=== PATIENT | male | born 1945 | race African-American/Black ===

== ENCOUNTER → 2016-11-12 | Outpatient (CLI) | payer MEDICARE ==
--- NOTE | 2016-11-12 16:00 | MR ---
EXAMINATION TYPE: MR shoulder LT wo con DATE OF EXAM: 11/12/2016 3:51 PM COMPARISON: NONE HISTORY: Left Shoulder Pain /Neck Pain TECHNIQUE: Multiplanar multispin echo imaging of the left shoulder was performed. FINDINGS: Rotator cuff : There is heterogeneity and thickening of the supraspinatus tendon compatible with corrections sergeant miguelina tendinopathy. Several intrasubstance partial tears are noted. At its humeral insertion there is a complete partial tear noted measuring 5.3 mm in thickness. Remaining rotator cuff tendons are intact . Bursa: No bursal effusion or thickening is seen. Musculature: There is no muscular tear, contusion, or atrophy. Acromioclavicular joint : Subacromial spurring resulting in moderate impingement. Osseous structures : There are no fractures or regions of abnormal bone marrow signal intensity. Mild cystic degenerative change at humeral tuberosity. Long biceps tendon : The biceps tendon is normally situated within the bicipital groove. No complete or partial biceps tendon tear is present. Glenohumeral Joint fluid : There is no glenohumeral joint effusion. Cartilage and Bone : No focal hyaline cartilage defects are noted. No Hill-Sachs, reverse Hill-Sachs, or bony Bankart lesions are seen. Labrum : There are no SLAP or soft tissue Bankart lesions. No paralabral cysts are seen. OTHER FINDINGS : none IMPRESSION: 1. Complete thickness partial tear of the supraspinatus tendon at its humeral insertion. Additional a reas of intrasubstance partial tear superimposed upon tendinopathy secondary to impingement.
--- NOTE | 2016-11-12 16:55 | MR ---
EXAMINATION TYPE: MR cervical spine wo con DATE OF EXAM: 11/12/2016 4:07 PM COMPARISON: NONE HISTORY: Left Shoulder Pain /Neck Pain TECHNIQUE: Multiplanar, multisequence images of the cervical spine were acquired. C2-C3: No evidence for degenerative disc disease. No disc bulge/herniation or protrusion. No Canal stenosis. Foramina are patent bilaterally. C3-C4: Moderate disc desiccation. Posterocentral subligamentous disc herniation effaces the ventral t hecal sac. There is constriction of the thecal sac with mild central stenosis. Mild ventral CORD cont act with early compressive myelopathy difficult to exclude. Mild left foraminal encroachment. C4-C5: Moderate disc desiccation. Broad-based Posterocentral subligamentous disc herniation effaces t he ventral thecal sac. There is constriction of the thecal sac with mild central stenosis. Mild ventr al CORD contact with early compressive myelopathy difficult to exclude. Bilateral foraminal encroachm ent. C5-C6: Moderate disc desiccation. Posterocentral disc herniation mild in degree. Mild effacement vent ral thecal sac with minimal ventral CORD contact. No evidence for central stenosis or compressive mye lopathy. Bilateral neural foramina are patent. C6-C7: Ggcg-cz-nsrjizee disc desiccation. Mild posterior disc bulge without herniation or protrusion. No central stenosis. Foramina are patent bilaterally. C7-T1: No evidence for degenerative disc disease. No disc bulge/herniation or protrusion. No Canal stenosis. Foramina are patent bilaterally. Cervical segments are intact. There is normal alignment. Craniovertebral junction relationships are within normal limits. IMPRESSION: 1. Multilevel degenerative disc disease with multilevel disc herniations and central stenosis with ea rly compressive myelopathy difficult to exclude at C3-4 and C4-5. See above.
== END | disposition home or self-care (01) ==
LOC: RADMRIMAIN 14:55
PROVIDERS: ATTEND Internal Medicine
DX: M75.122 Complete rotator cuff tear or rupture of left shoulder, not specified as traumatic (principal); M48.02 Spinal stenosis, cervical region; M50.21 Other cervical disc displacement, high cervical region; M50.31 Other cervical disc degeneration, high cervical region
CPT/HCPCS: 72141

== ENCOUNTER 2017-01-28 18:18 | Emergency (ER) | payer MEDICARE ==
[2017-01-28 18:35] VITALS: PULSE 59; RESP 18; TEMP 98.2
--- NOTE | 2017-01-28 19:39 | ED ---
Recheck HPI - General Chief Complaint: Recheck/Abnormal Lab/Rx Stated Complaint: high sugars Time Seen by Provider: 01/28/17 19:30 Source: patient, RN notes reviewed Mode of arrival: ambulatory Limitations: no limitations - History of Present Illness Initial Comments: 71-year-old male presents emergency department for recheck blood sugar. Patient states it was 170 at home. Patient states this is high for him. Patient states he gave himself insulin. Recheck here as 114. Patient states he has no complaints at this time. Patient states he felt that he had A polyuria at home. Patient denies any chest pain, shortness breath, headache, dizziness, nausea vomiting diarrhea constipation. Patient states he ate his normal diet. - Related Data Home Medications Medication Instructions Recorded Confirmed Aspirin 81 mg PO DAILY 05/15/14 09/26/15 Atorvastatin Calcium [Lipitor] 40 mg PO HS 05/15/14 09/26/15 Clopidogrel [Plavix] 75 mg PO DAILY 05/15/14 09/26/15 INSULIN LISPRO (humaLOG) [humaLOG 18 unit SQ TID 05/15/14 09/26/15 (formulary)] Insulin Detemir [Levemir] 50 unit SQ HS 05/15/14 09/26/15 Lisinopril-Hctz 20-12.5 mg 1 tab PO DAILY 05/15/14 09/26/15 [Zestoretic 20-12.5] Metoprolol Succinate [Toprol XL] 50 mg PO DAILY 05/15/14 09/26/15 NIFEdipine [NIFEdipine ER] 60 mg PO DAILY 05/15/14 09/26/15 Sildenafil Citrate [Viagra] 25 mg PO DIRECTED PRN 05/15/14 09/26/15 metFORMIN HCL [Glucophage] 1 tab PO BID 05/15/14 09/26/15 Donepezil [Aricept] 10 mg PO HS 09/26/15 09/26/15 Multivitamin [Men's Multi-Vitamin] 1 each PO DAILY 09/26/15 09/26/15 cloNIDine HCL [Catapres] 0.1 mg PO BID 09/26/15 09/26/15 sitaGLIPtin [Januvia] 100 mg PO DAILY 09/26/15 09/26/15 Previous Rx's Medication Instructions Recorded Spironolactone [Aldactone] 25 mg PO DAILY #90 tab 05/18/14 Allergies Allergy/AdvReac Type Severity Reaction Status Date / Time No Known Allergies Allergy Verified 01/28/17 18:35 Review of Systems ROS Statement: Those systems with pertinent positive or pertinent negative responses have been documented in the HPI. ROS Other: All systems not noted in ROS Statement are negative. Past Medical History Past Medical History: Chest Pain / Angina, Diabetes Mellitus, Hyperlipidemia, Hypertension, Myocardial Infarction ([place]), Prostate Disorder Additional Past Medical History / Comment(s): PROSTATE CA, BELLS PALSY,GLAUCOMA , ARHTRITIS,SHORT TERM MEMORY LOSS Last Myocardial Infarction Date:: UNK History of Any Multi-Drug Resistant Organisms: None Reported Past Surgical History: Joint Replacement, Prostate Surgery Additional Past Surgical History / Comment(s): LT hip replaced, Past Anesthesia/Blood Transfusion Reactions: No Reported Reaction Past Psychological History: No Psychological Hx Reported Smoking Status: Current every day smoker Past Alcohol Use History: Occasional Past Drug Use History: None Reported General Exam Limitations: no limitations General appearance: alert, in no apparent distress Head exam: Present: atraumatic, normocephalic, normal inspection Respiratory exam: Present: normal lung sounds bilaterally. Absent: respiratory distress, wheezes, rales, rhonchi, stridor Cardiovascular Exam: Present: regular rate, normal rhythm, normal heart sounds. Absent: systolic murmur, diastolic murmur, rubs, gallop, clicks Neurological exam: Present: alert, oriented X3 Course Vital Signs 01/28/17 18:33 Temperature 98.2 F Pulse Rate 59 L Respiratory 18 Rate Blood Pressure 203/88 O2 Sat by Pulse 99 Oximetry Medical Decision Making - Medical Decision Making 71-year-old male presents emergency department for high blood sugar. Patient's blood sugar was 178 home. Recheck here after on a half of insulin was 114. Patient will be discharged at this time. Disposition Clinical Impression: Diabetes, Increased blood glucose Disposition: HOME SELF-CARE Condition: Stable Instructions: How to Check Your Blood Sugar (ED) Additional Instructions: Please return to the Emergency Department if symptoms worsen or any other concerns. Referrals: Carlos Khan MD [Primary Care Provider] - 1-2 days Time of Disposition: 19:39
[2017-01-28 19:47] VITALS: BP 190/90
[2017-01-29 15:56] LABS: Glucose,Whole Blood 114 mg/dL (75-99)
== END 2017-01-28 19:47 | disposition home or self-care (01) ==
LOC: EC 18:18
DX: E11.65 Type 2 diabetes mellitus with hyperglycemia (principal); R35.8 Other polyuria; E78.5 Hyperlipidemia, unspecified; I10 Essential (primary) hypertension; I25.2 Old myocardial infarction; N42.9 Disorder of prostate, unspecified; F17.200 Nicotine dependence, unspecified, uncomplicated; Z79.4 Long term (current) use of insulin; Z79.82 Long term (current) use of aspirin; Z79.899 Other long term (current) drug therapy
CPT/HCPCS: 36415; 99283

== ENCOUNTER 2021-07-17 22:19 | Emergency (ER) | payer MEDICARE ==
[2021-07-17 22:39] VITALS: RESP 18
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
[2021-07-17 22:58] VITALS: BP 146/84; PULSE 78; TEMP 97.8
== END 2021-07-17 22:56 | disposition home or self-care (01) ==
LOC: EC 22:19
DX: R07.9 Chest pain, unspecified (principal); I10 Essential (primary) hypertension; E11.9 Type 2 diabetes mellitus without complications; E78.5 Hyperlipidemia, unspecified; I25.2 Old myocardial infarction; M19.90 Unspecified osteoarthritis, unspecified site; Z79.02 Long term (current) use of antithrombotics/antiplatelets; Z79.4 Long term (current) use of insulin; Z79.82 Long term (current) use of aspirin; Z86.16 Personal history of COVID-19; Z87.891 Personal history of nicotine dependence; Z79.899 Other long term (current) drug therapy
CPT/HCPCS: 93005; 99284

== ENCOUNTER 2021-08-17 15:13 | Observation (INO) | payer MEDICARE ==
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
--- NOTE | 2021-08-17 15:44 | XR ---
EXAMINATION TYPE: XR chest 2V DATE OF EXAM: 08/17/2021 COMPARISON: Chest x-ray September 26, 2015 HISTORY: Difficulty in breathing. TECHNIQUE: Frontal and lateral views of the chest are obtained. FINDINGS: There is more prominent cardiomegaly with new multi lead pacemaker/defibrillator that has leads terminating in right atrium, right ventricle, and coronary sinus. Mild to moderate central vasc ular congestion is present. Multiple tiny bilateral pleural effusions are seen. The osseous structur es are intact. IMPRESSION: Findings consistent with CHF exacerbation as detailed above.
[2021-08-17 15:59] LABS: Partial Thromboplastin Time 25.7 sec (22.0-30.0); Prothrombin Time 10.7 sec (9.0-12.0)
[2021-08-17 16:01] LABS: Albumin 3.4 g/dL (3.5-5.0); Calcium 8.7 mg/dL (8.4-10.2); Magnesium 1.5 mg/dL (1.6-2.3); Potassium 4.7 mmol/L (3.5-5.1); Total Bilirubin 0.5 mg/dL (0.2-1.3); Total Protein 6.9 g/dL (6.3-8.2)
[2021-08-17 16:13] LABS: Anisocytosis Slight; Basophils % (A) 0 %; Eosinophils # (A) 0.1 k/uL (0-0.7); Eosinophils % (A) 3 %; HCT 33.1 % (39.0-53.0); HGB 10.8 gm/dL (13.0-17.5); Lymphocytes # (A) 0.3 k/uL (1.0-4.8); Lymphocytes % (A) 7 %; MCH 27.4 pg (25.0-35.0); MCHC 32.6 g/dL (31.0-37.0); MCV 84.1 fL (80.0-100.0); Monocytes # (A) 0.4 k/uL (0-1.0); Monocytes % (A) 7 %; Neutrophils # (A) 4.1 k/uL (1.3-7.7); Neutrophils % (A) 82 %; Platelet Count 167 k/uL (150-450); RBC 3.93 m/uL (4.30-5.90); RDW 16.7 % (11.5-15.5)
[2021-08-17] MEDS ORDERED: FUROSEMIDE 10 MG/ML 4 ML VIAL IV STA (16:50)
[2021-08-17] MEDS ORDERED: NALOXONE 0.4 MG/ML 1 ML VIAL IV PRN (16:51)
[2021-08-17] MEDS ORDERED: MORPHINE SULFATE 2 MG/ML SYRINGE IVP STA (17:36)
[2021-08-17] MEDS ORDERED: ONDANSETRON 4 MG/2 ML VIAL IVP STA (17:37)
[2021-08-18] MEDS: ACETAMINOPHEN TAB 325 MG TAB PO PRN ×3 (03:33→23:33)
[2021-08-18] MEDS ORDERED: MORPHINE SULFATE 2 MG/ML SYRINGE IVP STA (04:16)
[2021-08-18] MEDS ORDERED: FUROSEMIDE 10 MG/ML 4 ML VIAL IV STA (08:39)
[2021-08-18] MEDS ORDERED: ALBUTEROL NEBULIZED 2.5 MG/3 ML INHALATION PRN (09:33)
[2021-08-18] MEDS: MAGNESIUM SULFATE-D5W PMX 1 GM in DEXTROSE/WATER 1 100ML.BAG IVPB SCH ×2 (09:52→12:00)
[2021-08-18] MEDS: hydrALAZINE HCL 50 MG TAB PO SCH ×3 (09:55→23:30)
[2021-08-18] MEDS: LOSARTAN 50 MG TAB PO SCH (09:55)
[2021-08-18] MEDS: CLOPIDOGREL 75 MG TAB PO SCH (09:55)
[2021-08-18] MEDS: carvediloL 12.5 MG TAB PO SCH ×2 (09:56→23:33)
[2021-08-18] MEDS: SPIRONOLACTONE 25 MG TAB PO SCH (09:56)
[2021-08-18] MEDS: ASPIRIN 81 MG PO SCH (09:56)
[2021-08-18] MEDS: amLODIPine 5 MG TAB PO SCH (09:56)
[2021-08-18 10:14] LABS: Glucose,Whole Blood 212 mg/dL (75-99)
[2021-08-18] MEDS: INSULIN DETEMIR (LEVEMIR) 100 UNIT/ML SYR SQ SCH (10:34)
--- NOTE | 2021-08-18 11:24 | P.CRDCN ---
History of Present Illness Consult date: 08/18/21 History of present illness: HISTORY OF PRESENT ILLNESS: This is a 75 year old male with a past medical history significant for hypertension, hyperlipidemia, coronary artery disease, and severe mitral regurgitation. Patient follows in the office with Dr. Astorga. We have been asked to see the patient in consultation for CHF and abnormal troponins. Patient examined at the bedside. Patient presented to the hospital with suicidal ideations and shortness of breath. Patient states his breathing has improved this morning. He reports having an episode of chest discomfort yesterday that started in the middle of his chest and then he states the pain went all the down both of his legs. He states his has been happening at home when he is walking. He currently denies any chest pain or pressure. The patient was found to be in congestive heart failure. He was given a dose of IV lasix in the ER. Patient states he is being worked up at [facility] for a possible mitral valve replacement EKG reveals paced rhythm Chest xray findings consistent with CHF Most recent echocardiogram obtained in December 2019 revealed ejection fraction 40% with moderate mitral regurgitation. MICHAEL in June 2020 revealed ejection fraction 37%, mild to moderate tricuspid regurgitation, and severe mitral regurgitation Cardiac catheterization history: June 2020 revealing 20% distal left main, 35% ostial circumflex, 45% OM 2, right dominant, mild disease in the LAD, chronic subtotal occlusion of the RCA REVIEW OF SYSTEMS: At the time of my exam: CONSTITUTIONAL: Denies fever or chills. HEENT: Denies blurred vision, vision changes, or eye pain. Denies hemoptysis CARDIOVASCULAR: Denies chest pain. Denies orthopnea. Denies PND. Denies palpitations RESPIRATORY: Denies shortness of breath. GASTROINTESTINAL: Denies abdominal pain. Denies nausea or vomiting. HEMATOLOGIC: Denies bleeding disorders. GENITOURINARY: Denies any blood in urine. SKIN: Denies pruitis. Denies rash. PHYSICAL EXAM: VITAL SIGNS: Reviewed. GENERAL: Well-developed in no acute distress. HEENT: Head is normocephalic. Pupils are equal, round. Sclerae anicteric. Mucous membranes of the mouth are moist. Neck supple. No JVD or thyromegaly LUNGS: Respirations even and unlabored. Lungs diminished to auscultation bilaterally. HEART: Regular rate and rhythm. S1 and S2 heard. Systolic murmur. ABDOMEN: Soft. Nondistended. Nontender. EXTREMITIES: Normal range of motion. No clubbing or cyanosis. Peripheral pulses intact. No lower extremity edema NEUROLOGIC: Awake and alert. Oriented x 3. ASSESSMENT: Suicidal ideation Acute on chronic systolic heart failure Coronary artery disease Abnormal troponins, ACS ruled out Chronic kidney disease Valvular heart disease History of PPM Hypertension Hyperlipidemia Diabetes Nicotine dependence PLAN: Obtain 2D echo to assess cardiac structure and function Give lasix 40mg IVP x 1 dose, then resume oral dosing Resume additional home cardiac medications [facility]btain [facility] Further recommendations pending patient course Nurse practitioner note has been reviewed by physician. Signing provider agrees with the documented findings, assessment, and plan of care. Past Medical History Past Medical History: Cancer, Chest Pain / Angina, Diabetes Mellitus, Eye Disorder, Hyperlipidemia, Hypertension, Myocardial Infarction ([place]), Osteoarthritis (OA), Prostate Disorder Additional Past Medical History / Comment(s): "Needs Valve replacement." HX PROSTATE CANCER 30 yrs ago, BELLS PALSY, GLAUCOMA, SHORT TERM MEMORY LOSS. Lost 23 lbs recently and continues with decreased appetite. Hx CoVid December 2019. Insomnia. Last Myocardial Infarction Date:: UNK History of Any Multi-Drug Resistant Organisms: None Reported Past Surgical History: Joint Replacement, Prostate Surgery Additional Past Surgical History / Comment(s): Left hip replacement. Past Anesthesia/Blood Transfusion Reactions: No Reported Reaction Past Psychological History: No Psychological Hx Reported Smoking Status: Former smoker Past Alcohol Use History: Occasional Past Drug Use History: Marijuana Medications and Allergies Home Medications Medication Instructions Recorded Confirmed Type Aspirin 81 mg PO DAILY 05/15/14 08/17/21 History Atorvastatin Calcium [Lipitor] 40 mg PO HS 05/15/14 08/17/21 History Clopidogrel [Plavix] 75 mg PO DAILY 05/15/14 08/17/21 History Ezetimibe [Zetia] 10 mg PO HS 07/25/20 08/17/21 History hydrALAZINE HCL [Apresoline] 100 mg PO TID 07/25/20 08/17/21 History Albuterol Inhaler [Ventolin Hfa 2 puff INHALATION RT-Q4H PRN 08/17/21 08/17/21 History Inhaler] Carvedilol [Coreg] 12.5 mg PO BID 08/17/21 08/17/21 History Furosemide [Lasix] 40 mg PO DAILY 08/17/21 08/17/21 History INSULIN ASPART (NovoLOG) [NovoLOG 20 unit SQ AC-TID 08/17/21 08/17/21 History (formulary)] Insulin Detemir [Levemir Flextouch 17 units SQ DAILY 08/17/21 08/17/21 History Pen] Losartan [Cozaar] 50 mg PO DAILY 08/17/21 08/17/21 History Melatonin [Melatonin Disolving] 12 mg PO HS PRN 08/17/21 08/17/21 History Oxymetazoline 0.05% Nasl [place] 2 spray EA NOSTRIL BID PRN 08/17/21 08/17/21 History [Afrin 0.05% Nasal [place]] Spironolactone 25 mg PO DAILY 08/17/21 08/17/21 History Umeclidinium Brm/Vilanterol Tr 1 puff INHALATION RT-DAILY 08/17/21 08/17/21 History [Anoro Ellipta 62.5-25 Mcg INH] amLODIPine [Norvasc] 5 mg PO DAILY 08/17/21 08/17/21 History Allergies Allergy/AdvReac Type Severity Reaction Status Date / Time No Known Allergies Allergy Verified 08/17/21 17:23 Physical Exam Vitals: Vital Signs Temp Pulse Resp BP Pulse Ox 08/18/21 08:06 73 18 149/95 99 08/18/21 06:45 82 18 138/73 98 08/18/21 05:00 84 18 08/18/21 04:13 80 18 140/82 96 08/18/21 02:00 68 18 143/80 100 08/18/21 01:47 67 18 135/83 99 08/18/21 00:00 61 18 140/83 100 08/17/21 21:59 67 18 166/77 08/17/21 20:19 66 18 139/63 97 08/17/21 17:15 73 18 165/84 99 08/17/21 15:14 99.2 F 75 18 100 Intake and Output 08/17/21 08/18/21 08/18/21 22:59 06:59 14:59 Other: Weight 70.307 kg Results 08/17/21 15:23 08/17/21 15:23 Cardiac Enzymes 08/17/21 08/17/21 08/17/21 Range/Units 15:23 15:23 19:08 AST 45 (17-59) U/L Troponin I 0.198 H* 0.194 H* (0.000-0.034) ng/mL 08/17/21 Range/Units 22:19 AST (17-59) U/L Troponin I 0.177 H* (0.000-0.034) ng/mL Coagulation 08/17/21 Range/Units 15:23 PT 10.7 (9.0-12.0) sec APTT 25.7 (22.0-30.0) sec CBC 08/17/21 Range/Units 15:23 WBC 5.0 (3.8-10.6) k/uL RBC 3.93 L (4.30-5.90) m/uL Hgb 10.8 L (13.0-17.5) gm/dL Hct 33.1 L (39.0-53.0) % Plt Count 167 (150-450) k/uL Comprehensive Metabolic Panel 08/17/21 Range/Units 15:23 Sodium 133 L (137-145) mmol/L Potassium 4.7 (3.5-5.1) mmol/L Chloride 102 (98-107) mmol/L Carbon Dioxide 23 (22-30) mmol/L BUN 40 H (9-20) mg/dL Creatinine 1.50 H (0.66-1.25) mg/dL Glucose 261 H (74-99) mg/dL Calcium 8.7 (8.4-10.2) mg/dL AST 45 (17-59) U/L ALT 31 (4-49) U/L Alkaline Phosphatase 55 (38-126) U/L Total Protein 6.9 (6.3-8.2) g/dL Albumin 3.4 L (3.5-5.0) g/dL Current Medications Generic Name Dose Route Start Last Admin Trade Name Freq PRN Reason Stop Dose Admin Acetaminophen 650 mg 08/17/21 16:51 08/18/21 03:33 Acetaminophen Tab 325 Mg Tab PO 650 mg Q6HR PRN Administration Mild Pain or Fever > 100.5 Albuterol Sulfate 2.5 mg 08/18/21 09:33 Albuterol Nebulized 2.5 Mg/3 Ml INHALATION RT-Q4H PRN Shortness Of Breath Amlodipine Besylate 5 mg 08/18/21 09:15 08/18/21 09:56 Amlodipine 5 Mg Tab PO 5 mg DAILY ANDRESSA Administration Aspirin 81 mg 08/18/21 09:15 08/18/21 09:56 Aspirin 81 Mg PO 81 mg DAILY ANDRESSA Administration Atorvastatin Calcium 40 mg 08/18/21 21:00 Atorvastatin 40 Mg Tab PO HS [facility] Carvedilol 12.5 mg 08/18/21 09:15 08/18/21 09:56 Carvedilol 12.5 Mg Tab PO 12.5 mg BID ANDRESSA Administration Clopidogrel Bisulfate 75 mg 08/18/21 09:15 08/18/21 09:55 Clopidogrel 75 Mg Tab PO 75 mg DAILY ANDRESSA Administration Ezetimibe 10 mg 08/18/21 21:00 Ezetimibe 10 Mg Tab PO HS [facility] Formoterol Fumarate 20 mcg 08/18/21 20:00 Formoterol Fumarate 20 Mcg/2 Ml Nebu INHALATION RT-BID ANDRESSA Furosemide 40 mg 08/19/21 09:00 Furosemide 40 Mg Tab PO DAILY [facility] Hydralazine HCl 100 mg 08/18/21 09:15 08/18/21 09:55 Hydralazine Hcl 50 Mg Tab PO 100 mg TID ANDRESSA Administration Magnesium Sulfate/Dextrose 1 100 mls @ 100 mls/hr 08/18/21 09:45 08/18/21 09:52 gm/ IV Solution IVPB 08/18/21 11:44 100 mls/hr Q1H ANDRESSA Administration Insulin Detemir 17 unit 08/18/21 09:45 08/18/21 10:34 Insulin Detemir (Levemir) 100 Unit/Ml Syr SQ 17 unit DAILY@0700 ANDRESSA Administration Ipratropium [place] 0.5 mg 08/18/21 20:00 Ipratropium 0.5 Mg/2.5 Ml Nebu INHALATION RT-QID [facility] Losartan Potassium 50 mg 08/18/21 09:15 08/18/21 09:55 Losartan 50 Mg Tab PO 50 mg DAILY ANDRESSA Administration Naloxone HCl 0.2 mg 08/17/21 16:51 Naloxone 0.4 Mg/Ml 1 Ml Vial IV Q2M PRN Opioid Reversal Spironolactone 25 mg 08/18/21 09:15 08/18/21 09:56 Spironolactone 25 Mg Tab PO 25 mg DAILY ANDRESSA Administration Intake and Output 08/17/21 08/18/21 08/18/21 22:59 06:59 14:59 Other: Weight 70.307 kg 08/17/21 15:23 08/17/21 15:23
[2021-08-18 11:55] LABS: Calcium 8.6 mg/dL (8.4-10.2); Potassium 4.7 mmol/L (3.5-5.1)
[2021-08-18 12:01] LABS: Anisocytosis Slight; Basophils % (A) 1 %; Eosinophils # (A) 0.1 k/uL (0-0.7); Eosinophils % (A) 5 %; HCT 31.8 % (39.0-53.0); HGB 10.4 gm/dL (13.0-17.5); Lymphocytes # (A) 0.6 k/uL (1.0-4.8); Lymphocytes % (A) 22 %; MCH 27.8 pg (25.0-35.0); MCHC 32.7 g/dL (31.0-37.0); Mean Platelet Volume 10.1; Monocytes # (A) 0.4 k/uL (0-1.0); Monocytes % (A) 14 %; Neutrophils # (A) 1.4 k/uL (1.3-7.7); Neutrophils % (A) 53 %; Platelet Count 159 k/uL (150-450); RBC 3.74 m/uL (4.30-5.90); RDW 16.5 % (11.5-15.5); WBC 2.6 k/uL (3.8-10.6)
--- NOTE | 2021-08-18 12:44 | ECHOF ---
Referral Reason:LV function MEASUREMENTS -------- HEIGHT: 177.8 cm WEIGHT: 70.3 kg BP: 149/95 RVIDd: 3.7 cm (< 3.3) IVSd: 1.6 cm (0.6 - 1.1) LVIDd: 4.8 cm (3.9 - 5.3) LVPWd: 2.1 cm (0.6 - 1.1) IVSs: 2.0 cm LVIDs: 3.5 cm LVPWs: 2.7 cm LAESV Index (A-L): 76.78 ml/m Ao Diam: 3.5 cm (2.0 - 3.7) AV Cusp: 1.9 cm (1.5 - 2.6) LA Diam: 5.1 cm (2.7 - 3.8) MV EXCURSION: 15.856 mm (> 18.000) MV EF SLOPE: 81 mm/s (70 - 150) EPSS: 1.1 cm MV E Arash: 1.56 m/s MV DecT: 257 ms MV A Arash: 0.67 m/s MV E/A Ratio: 2.33 RAP: 5.00 mmHg RVSP: 41.31 mmHg FINDINGS -------- Sinus rhythm. Pacerwire seen in RV and RA. This was a technically good study. The left ventricular size is normal. There is moderate concentric left ventricular hypertrophy. O verall left ventricular systolic function is moderate-severely impaired with, an EF between 30 - 35 % . Basal lateral LV wall motion is hypokinetic. Basal inferior LV wall motion is hypokinetic. Mid lateral LV wall motion is hypokinetic. Mid inferior LV wall motion is hypokinetic. Apical i nferior LV wall motion is hypokinetic. The right ventricle is mildly enlarged. LA is severely dilated >40 ml/m2 The right atrial size is normal. Electronic pacemaker lead seen in the right atrial cavity. Interatrial and interventricular septum intact. The aortic valve is trileaflet, and appears structurally normal. No aortic stenosis or regurgitation. The mitral valve leaflets are mildly thickened. Severe mitral regurgitation is present. Mild tricuspid regurgitation present. There is mild pulmonary hypertension. The right ventricular systolic pressure, as measured by Doppler, is 41.31mmHg. Trace/mild (physiologic) pulmonic regurgitation. The aortic root size is normal. Normal inferior vena cava with normal inspiratory collapse consistent with estimated right atrial pre ssure of 5 mmHg. There is no pericardial effusion. CONCLUSIONS -------- 1. Pacerwire seen in RV and RA. 2. There is moderate concentric left ventricular hypertrophy. 3. Overall left ventricular systolic function is moderate-severely impaired with, an EF between 30 - 35 %. 4. Basal lateral LV wall motion is hypokinetic. 5. Basal inferior LV wall motion is hypokinetic. 6. Mid lateral LV wall motion is hypokinetic. 7. Mid inferior LV wall motion is hypokinetic. 8. Apical inferior LV wall motion is hypokinetic. 9. The right ventricle is mildly enlarged. 10. LA is severely dilated >40 ml/m2 11. The aortic valve is trileaflet, and appears structurally normal. No aortic stenosis or regurgitat ion. 12. Severe mitral regurgitation is present. 13. Mild tricuspid regurgitation present. 14. There is mild pulmonary hypertension. 15. Trace/mild (physiologic) pulmonic regurgitation. TECHNICAL PROJECT MANAGER: Milla Vasquez RDCS
--- NOTE | 2021-08-18 13:57 | P.CN ---
Psychiatric Consult - . Consult date: 08/18/21 Consult:: 08/18/21 11:59 IDENTIFYING DATA: This patient is a 75-year-old -French male who currently lives alone is and has 5 children. REASON FOR REFERRAL: Psychiatry was consulted for suicidal ideations HISTORY OF PRESENT ILLNESS: The patient presented to the hospital owever still having on and off chest pain. He states that his mood is better now since coming into the hospital and is denying any current depression. He is denying any anxiety is well at this time. He does state that he does have a history of depression and has been going to [facility] and dealing with his surveyor oil well directional Cely. He states that he was having suicidal ideations before coming into the hospital however states that they're mainly related to his heart condition is not feeling better. He claimed that he is feeling overwhelmed. He states that his sleep is "on and off" and has a fair appetite] . At this time patient denies any suicidal or homical ideations, intent or plan. Patient denies any auditory, visual hallucinations and denies any paranoia or delusions. Patients admits to using and no recreational drugs or cigarettes except for alcohol and marijuana occasionally. PAST PSYCHIATRIC HISTORY: Patient has a a history of depression. [Patient denies being on any psychiatric medications.] [Patient denies any previous psychiatric hospitalizations.] Claims that he does go to [facility] for follow-up with the surveyor oil well directional Cely. He states that he did "almost jump" into the [place] over 2 years ago. Past Medical History: Cancer, Chest Pain / Angina, Diabetes Mellitus, Eye Disorder, Hyperlipidemia, Hypertension, Myocardial Infarction ([place]), Osteoarthritis (OA), Prostate Disorder Additional Past Medical History / Comment(s): "Needs Valve replacement." HX PROSTATE CANCER 30 yrs ago, BELLS PALSY, GLAUCOMA, SHORT TERM MEMORY LOSS. Lost 23 lbs recently and continues with decreased appetite. Hx CoVid December 2019. Insomnia. ALLERGIES: as per EMR. CHEMICAL DEPENDENCY HISTORY: as per HPI. FAMILY PSYCHIATRIC/SUBSTANCE USE HISTORY: [denies] SOCIAL HISTORY: Patient was born and raised in [place] [facility]. He states that he completed up to 11th grade. 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 He states that he did go to longterm when he was younger for "fighting". He states that he has 5 children he is and lives alone. MENTAL STATUS EXAM: General Appearance: Patient appears to be thin, elderly, wearing a hat, stated age is alert, constricted however attempts to cooperate. Patient appears to have [fair] hygiene and grooming wearing hospital gown with [fair] eye contact. Behavior: [Patient is calmly lying in bed without any agitated behavior.] [place] and monotone Speech: Patient's speech is fluent and nonpressured. Mood/Affect: Patient reports their mood is "ok now", affect is congruent and constricted Suicidality/Homicidality: Patient denies having any suicidal or homicidal ideation intent or plan. Perceptions: Patient denies any visual hallucinations [and denies any auditory hallucinations] Though content/process: There is no evidence of any delusional thought content and thought process is linear and goal-directed. [place]. Poverty of content. Memory and concentration: AOX3, grossly intact for the purposes of this session. Can spell "WORLD" backwards Judgment and insight: fair IMPRESSIONS: Depressive disorder, without psychotic features Cannabis use disorder mild PLAN: -At this time patient DOES [NOT] meet criteria for inpatient psychiatric admission. [-Delirium precautions recommended with patient including - avoiding use of narcotics and [employer] sedatives, limit anticholinergic medications when possible, frequent re-orientation, minimize use of restraints, open window shades during the day and close them at night] -Would recommend the following medication changes/additions: Zoloft 25 mg daily for mood/anxiety. melatonin 5 mg daily at bedtime for insomnia. [-animal care worker to provide patient with outpatient mental health/psychiatry resources for appropriate follow up upon discharge] -tag writer was unable to find patients nurse [-Will continue to follow along] -Please contact with any questions. 08/18/21 13:50
[2021-08-18] MEDS: SERTRALINE 25 MG TAB PO SCH (14:27)
[2021-08-18 15:50] LABS: Poikilocytosis (M) Present
[2021-08-18] MEDS: IPRATROPIUM 0.5 MG/2.5 ML NEBU INHALATION SCH ×2 (16:26→20:57)
[2021-08-18] MEDS: FORMOTEROL FUMARATE 20 MCG/2 ML NEBU INHALATION SCH (20:57)
--- NOTE | 2021-08-18 21:03 | P.HPIM ---
History of Present Illness H&P Date: 08/18/21 Chief Complaint: Shortness of breath Patient is a 75-year-old male with a known history of hypertension, hyperlipidemia, diabetes type 2 insulin-dependent, history of NH, oste oarthritis, severe mitral regurgitation, chronic CHF with systolic dysfunction presents to ER with complaints of worsening shortness of breath, cough and chest discomfort. Patient was recently seen at [facility] due to non-ST elevated NH and was started on heparin drip. Patient was eventually transferred to [facility] for high risk cardiac catheterization. Patient states that he did have cardiac cath and atherectomy at [facility] and was discharged home yesterday by Taxi. After reaching home patient started having symptoms of chest pain and cough and congestion again. Patient also felt suicidal at that time and came to ER for evaluation. Patient was given IV Lasix in the ER. Patient is supposed to follow-up with [facility] for mitral valve repl acement. Chest x-ray showed findings consistent with CHF exacerbation. EKG showed atrial sensing ventricular paced rhythm. Laboratory culture WBC 5.0 hemoglobin 10.8 and platelets 167 and lymphocytes 0.3 Sodium 133 potassium 4.7 chloride 102 BUN 14 creatinine 1.5 and blood sugar is 261 Troponin 0 0.198, and 0.194 and 0.177 proBNP 4700 Albumin 3.4 Coronavirus PCR not detected. Review of Systems Constitutional: Patient denies any fever or chills . No generalized weakness or weight loss. Abdomen: Patient denied nausea vomiting and diarrhea and abdominal pain. Cardiovascular: Patient did have chest discomfort and shortness of breath and exertional dyspnea. No palpitations. No worsening leg swelling.. Respiratory: patient denied any cough or sputum production. No shortness of breath Neurologic: Patient denied any numbness or tingling headache. Musculoskeletal: Patient denies any complaints of joint swelling or deformity. Skin: Negative Psychiatric: Negative Endocrine: No heat or cold intolerance. No recent weight gain. Genitourinary: No dysuria or hematuria. All other 14 point ROS negative except the above Past Medical History Past Medical History: Cancer, Chest Pain / Angina, Diabetes Mellitus, Eye Disorder, Hyperlipidemia, Hypertension, Myocardial Infarction (NH), Osteoarthritis (OA), Prostate Disorder Additional Past Medical History / Comment(s): "Needs Valve replacement." HX CA [place] [facility] 30 yrs ago, BELLS PALSY, GLAUCOMA, SHORT TERM MEMORY LOSS. Lost 23 lbs recently and continues with decreased appetite. Hx CoVid December 2019. Insomnia. Last Myocardial Infarction Date:: UNK History of Any Multi-Drug Resistant Organisms: None Reported Past Surgical History: Joint Replacement, Prostate Surgery Additional Past Surgical History / Comment(s): Left hip replacement. Past Anesthesia/Blood Transfusion Reactions: No Reported Reaction Past Psychological History: No Psychological Hx Reported Smoking Status: Former smoker Past Alcohol Use History: Occasional Past Drug Use History: Marijuana Medications and Allergies Home Medications Medication Instructions Recorded Confirmed Type RX: Aspirin 81 mg PO DAILY 05/15/14 08/17/21 History RX: Atorvastatin Calcium [Lipitor] 40 mg PO HS 05/15/14 08/17/21 History RX: Clopidogrel [Plavix] 75 mg PO DAILY 05/15/14 08/17/21 History Ezetimibe [Zetia] 10 mg PO HS 07/25/20 08/17/21 History hydrALAZINE HCL [Apresoline] 100 mg PO TID 07/25/20 08/17/21 History Albuterol Inhaler [Ventolin Hfa 2 puff INHALATION RT-Q4H PRN 08/17/21 08/17/21 History Inhaler] Carvedilol [Coreg] 12.5 mg PO BID 08/17/21 08/17/21 History Furosemide [Lasix] 40 mg PO DAILY 08/17/21 08/17/21 History INSULIN ASPART (NovoLOG) [NovoLOG 20 unit SQ AC-TID 08/17/21 08/17/21 History (formulary)] Insulin Detemir [Levemir Flextouch 17 units SQ DAILY 08/17/21 08/17/21 History Pen] Losartan [Cozaar] 50 mg PO DAILY 08/17/21 08/17/21 History Melatonin [Melatonin Disolving] 12 mg PO HS PRN 08/17/21 08/17/21 History Oxymetazoline 0.05% Nasl [place] 2 spray EA NOSTRIL BID PRN 08/17/21 08/17/21 History [Afrin 0.05% Nasal [place]] RX: Spironolactone 25 mg PO DAILY 08/17/21 08/17/21 History Umeclidinium Brm/Vilanterol Tr 1 puff INHALATION RT-DAILY 08/17/21 08/17/21 History [Anoro Ellipta 62.5-25 Mcg INH] amLODIPine [Norvasc] 5 mg PO DAILY 08/17/21 08/17/21 History Allergies Allergy/AdvReac Type Severity Reaction Status Date / Time No Known Allergies Allergy Verified 08/17/21 17:23 Physical Exam Vitals: Vital Signs Temp Pulse Resp BP Pulse Ox 08/18/21 08:06 73 18 149/95 99 08/18/21 06:45 82 18 138/73 98 08/18/21 05:00 84 18 08/18/21 04:13 80 18 140/82 96 08/18/21 02:00 68 18 143/80 100 08/18/21 01:47 67 18 135/83 99 08/18/21 00:00 61 18 140/83 100 08/17/21 21:59 67 18 166/77 08/17/21 20:19 66 18 139/63 97 08/17/21 17:15 73 18 165/84 99 08/17/21 15:14 99.2 F 75 18 100 Intake and Output 08/17/21 08/18/21 08/18/21 22:59 06:59 14:59 Other: Weight 70.307 kg PHYSICAL EXAMINATION: Patient is lying in the bed comfortably, no acute distress, awake alert and oriented.. HEENT: Normocephalic. Neck is supple. Pupils reactive. Nostrils clear. Oral cavity is moist. Neck reveals no JVD, carotid bruits, or thyromegaly. CHEST EXAMINATION: Trachea is central. Symmetrical expansion. Bibasilar crackles. Nonlabored breathing. No wheezing.. CARDIAC: Normal S1, S2 with no gallops. No murmurs ABDOMEN: Soft. Bowel sounds normal. No organomegaly. No abdominal bruits. Extremities: rtrace edema. No clubbing or cyanosis Neurologically awake, alert, oriented x3 with well-coordinated movements. No focal deficits noted Skin: No rash or skin lesions. Psychiatric: Cooperative. Nonsuicidal Musculoskeletal: No joint swelling or deformity. Normal range of motion. Results CBC & Chem 7: 08/18/21 11:14 08/18/21 11:14 Labs: Abnormal Lab Results - Last 24 Hours (Table) 08/17/21 08/17/21 08/17/21 Range/Units 15:23 15:23 15:23 RBC 3.93 L (4.30-5.90) m/uL Hgb 10.8 L (13.0-17.5) gm/dL Hct 33.1 L (39.0-53.0) % RDW 16.7 H (11.5-15.5) % Lymphocytes # 0.3 L (1.0-4.8) k/uL Sodium 133 L (137-145) mmol/L BUN 40 H (9-20) mg/dL Creatinine 1.50 H (0.66-1.25) mg/dL Glucose 261 H (74-99) mg/dL Magnesium 1.5 L (1.6-2.3) mg/dL Troponin I 0.198 H* (0.000-0.034) ng/mL Albumin 3.4 L (3.5-5.0) g/dL 08/17/21 08/17/21 Range/Units 19:08 22:19 RBC (4.30-5.90) m/uL Hgb (13.0-17.5) gm/dL Hct (39.0-53.0) % RDW (11.5-15.5) % Lymphocytes # (1.0-4.8) k/uL Sodium (137-145) mmol/L BUN (9-20) mg/dL Creatinine (0.66-1.25) mg/dL Glucose (74-99) mg/dL Magnesium (1.6-2.3) mg/dL Troponin I 0.194 H* 0.177 H* (0.000-0.034) ng/mL Albumin (3.5-5.0) g/dL Thrombosis Risk Factor Assmnt - DVT/VTE Prophylaxis DVT/VTE Prophylaxis: Pharmacologic Prophylaxis ordered Assessment and Plan Assessment: Acute on chronic CHF with systolic dysfunction. Ejection fraction less than 40%. Severe mitral regurgitation. Patient is on follow-up with [facility] for possible mitral valve replacement. Recently had cardiac catheterization and was discharged home on 08/17/2021. Recent admission with NSTEMI at [facility] and was transferred to [facility] for high risk cardiac catheterization. Suicidal ideation on admission Mildly elevated troponin level. Unlikely ACS. Acute on chronic kidney disease stage III History of permanent pacemaker placement Hypertension Diabetes type 2 insulin-dependent with hyperglycemia. Uncontrolled. Hyperlipidemia Previous history of smoking and marijuana use occasionally. DVT prophylaxis with heparin subcu Plan: Patient was given IV Lasix in the ER. Currently we can Lasix 40 mg daily. Cardiology was consulted due to acute CHF exacerbation. Repeat 2D echocardiogram was ordered. Reports from [facility] are being obtained. Continue with home blood pressure medications as started on insulin regimen. Continue with insulin sliding scale for better blood sugar control. GI and DVT prophylaxis. Duo nebs as needed. Continue to follow closely. Prognosis guarded with multiple medical problems and comorbid conditions. Time with Patient: Greater than 30
[2021-08-18] MEDS: ATORVASTATIN 40 MG TAB PO SCH (23:30)
[2021-08-19] MEDS ORDERED: MORPHINE SULFATE 4 MG/ML SYRINGE IVP PRN (01:35)
[2021-08-19] MEDS ORDERED: MORPHINE SULFATE 4 MG/ML SYRINGE IVP STA (01:35)
[2021-08-19] MEDS: EZETIMIBE 10 MG TAB PO SCH ×2 (01:39→20:37)
[2021-08-19] MEDS: HEPARIN SODIUM,PORCINE/PF 5,000 UNIT/0.5 ML SYRINGE SQ SCH ×4 (01:39→23:37)
[2021-08-19] MEDS: MELATONIN 5 MG TABLET PO SCH ×2 (01:39→19:56)
[2021-08-19 04:41] LABS: Calcium 8.3 mg/dL (8.4-10.2); Potassium 4.6 mmol/L (3.5-5.1)
[2021-08-19 05:44] LABS: Anisocytosis Slight; HCT 29.7 % (39.0-53.0); HGB 9.9 gm/dL (13.0-17.5); MCH 28.2 pg (25.0-35.0); MCHC 33.3 g/dL (31.0-37.0); MCV 84.9 fL (80.0-100.0); Mean Platelet Volume 10.3; Platelet Count 171 k/uL (150-450); RDW 16.6 % (11.5-15.5); WBC 3.1 k/uL (3.8-10.6)
[2021-08-19] MEDS ORDERED: NON FORMULARY DRUG (Umeclidinium Brm/Vilanterol Tr [Anoro Ellipta 62.5-25 Mcg Inh] 1 EACH INHALATION SCH (08:00)
[2021-08-19] MEDS: FORMOTEROL FUMARATE 20 MCG/2 ML NEBU INHALATION SCH ×2 (08:19→20:45)
[2021-08-19] MEDS: IPRATROPIUM 0.5 MG/2.5 ML NEBU INHALATION SCH ×4 (08:20→20:46)
[2021-08-19] MEDS: INSULIN DETEMIR (LEVEMIR) 100 UNIT/ML SYR SQ SCH (10:14)
[2021-08-19] MEDS: SERTRALINE 25 MG TAB PO SCH (10:15)
[2021-08-19] MEDS: FUROSEMIDE 40 MG TAB PO SCH (10:15)
[2021-08-19] MEDS: hydrALAZINE HCL 50 MG TAB PO SCH ×3 (10:15→20:37)
[2021-08-19] MEDS: ASPIRIN 81 MG PO SCH (10:15)
[2021-08-19] MEDS: amLODIPine 5 MG TAB PO SCH (10:15)
[2021-08-19] MEDS: LOSARTAN 50 MG TAB PO SCH (10:15)
[2021-08-19] MEDS: SPIRONOLACTONE 25 MG TAB PO SCH (10:16)
[2021-08-19] MEDS: carvediloL 12.5 MG TAB PO SCH ×2 (10:16→19:56)
[2021-08-19] MEDS: CLOPIDOGREL 75 MG TAB PO SCH (10:18)
--- NOTE | 2021-08-19 11:27 | P.PN ---
Progress Note - Text Progress Note Date: 08/19/21 Interval History: Patient was seen today for psychiatric follow-up regarding patient's depression. Patient was noted to be refusing the melatonin last night and has been taking Zoloft which was started yesterday 25 mg. Patient was up and on his phone today while also watching TV. He claims that he is doing "much better today". He appeared to have an improvement in his affect and states that he is not having any anxiety or depression today. He states that his shortness of breath and chest pain is also been improving while in the hospital. He claims that he feels he is ready for discharge today. He claims that he did sleep better last night and states that he was up late watching TV and on his phone. He was counseled about the blue light on his phone and also melatonin. He states that he will take melatonin as needed when he goes home. He claims that he will be following up with [facility] upon discharge. At this time patient denies any suicidal or homical ideations, intent or plan. Patient denies any auditory, visual hallucinations and denies any paranoia or delusions. Patient denies any side effects from the medications and has been compliant with meds. Mental Status Exam: General Appearance: Patient appears to be thin, elderly, wearing a hat, stated age is alert, attempts to cooperate. Patient appears to have fair hygiene and grooming wearing hospital gown with fair eye contact. Behavior: Patient is calmly lying in bed without any agitated behavior. [place] Speech: Patient's speech is fluent and nonpressured. Mood/Affect: Patient reports their mood is "better", affect is congruent Suicidality/Homicidality: Patient denies having any suicidal or homicidal id eation intent or plan. Perceptions: Patient denies any visual hallucinations and denies any auditory hallucinations Though content/process: There is no evidence of any delusional thought content a nd thought process is linear and goal-directed. Memory and concentration: AOX3, grossly intact for the purposes of this session. Judgment and insight: fair IMPRESSIONS: Major Depressive disorder, without psychotic features Cannabis use disorder mild PLAN: -At this time patient DOES NOT meet criteria for inpatient psychiatric admission. -Delirium precautions recommended with patient including - avoiding use of narcotics and [employer] PV sedatives, limit anticholinergic medications when possible, frequent re-orientation, minimize use of restraints, open window shades during the day and close them at night -Would recommend the following medication changes/additions: Zoloft 25 mg daily for mood/anxiety. melatonin 5 mg prn daily at bedtime for insomnia. Please give a two-week supply of the medications. -timber mill worker to provide patient with outpatient mental health/psychiatry resources for appropriate follow up upon discharge. Patient will be following up with [facility]. -life underwriter was unable to find patients nurse however did speak with another nurse in the area who states that she will pass along the recommendations. -At this time psychiatry will sign off -Please contact with any questions.
--- NOTE | 2021-08-19 13:25 | P.PN ---
Subjective Progress Note Date: 08/19/21 HISTORY OF PRESENT ILLNESS: This is a 75 year old male with a past medical history significant for hypertension, hyperlipidemia, coronary artery disease, and severe mitral regurgitation. Patient follows in the office with Dr. Astorga. We have been asked to see the patient in consultation for CHF and abnormal troponins. Patient examined at the bedside. Patient presented to the hospital with suicidal ideations and shortness of breath. Patient states his breathing has improved this morning. He reports having an episode of chest discomfort yesterday that started in the middle of his chest and then he states the pain went all the down both of his legs. He states his has been happening at home when he is walking. He currently denies any chest pain or pressure. The patient was found to be in congestive heart failure. He was given a dose of IV lasix in the ER. Patient states he is being worked up at [facility] for a possible mitral valve replacement EKG reveals paced rhythm Chest xray findings consistent with CHF Most recent echocardiogram obtained in December 2019 revealed ejection fraction 40% with moderate mitral regurgitation. MICHAEL in June 2020 revealed ejection fraction 37%, mild to moderate tricuspid regurgitation, and severe mitral regurgitation Cardiac catheterization history: June 2020 revealing 20% distal left main, 35% ostial circumflex, 45% OM 2, right dominant, mild disease in the LAD, chronic subtotal occlusion of the RCA 08/19/2021 Patient examined this morning at the bedside. He denies shortness of breath. He remains on oral lasix. Echocardiogram completed revealing ejection fraction 30- 35%, severe mitral regurgitation. Mild tricuspid regurgitation. PHYSICAL EXAM: VITAL SIGNS: Reviewed. GENERAL: Well-developed in no acute distress. HEENT: Head is normocephalic. Pupils are equal, round. Sclerae anicteric. Mucous membranes of the mouth are moist. Neck supple. No JVD or thyromegaly LUNGS: Respirations even and unlabored. Lungs diminished to auscultation bilaterally. HEART: Regular rate and rhythm. S1 and S2 heard. Systolic murmur. ABDOMEN: Soft. Nondistended. Nontender. EXTREMITIES: Normal range of motion. No clubbing or cyanosis. Peripheral pulses intact. No lower extremity edema NEUROLOGIC: Awake and alert. Oriented x 3. ASSESSMENT: Suicidal ideation Acute on chronic systolic heart failure Coronary artery disease Abnormal troponins, ACS ruled out Chronic kidney disease Valvular heart disease History of PPM Hypertension Hyperlipidemia Diabetes Nicotine dependence PLAN: Continue current cardiac medications Patient is stable for discharge from a cardiac standpoint He is to follow up outpatient at [facility] regarding his mitral valve repair/replacement Nurse practitioner note has been reviewed by physician. Signing provider agrees with the documented findings, assessment, and plan of care. Objective - Vital Signs Vital signs: Vital Signs Temp 98.4 F 08/19/21 08:00 Pulse 60 08/19/21 12:00 Resp 18 08/19/21 12:00 BP 109/50 08/19/21 12:00 Pulse Ox 98 08/19/21 12:00 Intake & Output 08/18/21 08/19/21 08/19/21 18:59 06:59 18:59 Weight 70.307 kg - Labs CBC & Chem 7: 08/19/21 03:27 08/19/21 03:27 Labs: Abnormal Lab Results - Last 24 Hours (Table) 08/18/21 08/18/21 08/19/21 Range/Units 11:14 11:14 03:27 WBC 3.1 L (3.8-10.6) k/uL RBC 3.50 L (4.30-5.90) m/uL Hgb 9.9 L (13.0-17.5) gm/dL Hct 29.7 L (39.0-53.0) % RDW 16.6 H (11.5-15.5) % Lymphocytes # 0.6 L (1.0-4.8) k/uL Sodium (137-145) mmol/L Chloride (98-107) mmol/L BUN (9-20) mg/dL Creatinine (0.66-1.25) mg/dL Glucose (74-99) mg/dL Hemoglobin A1c 6.9 H (4.0-6.0) % Calcium (8.4-10.2) mg/dL 08/19/21 Range/Units 03:27 WBC (3.8-10.6) k/uL RBC (4.30-5.90) m/uL Hgb (13.0-17.5) gm/dL Hct (39.0-53.0) % RDW (11.5-15.5) % Lymphocytes # (1.0-4.8) k/uL Sodium 132 L (137-145) mmol/L Chloride 97 L (98-107) mmol/L BUN 51 H (9-20) mg/dL Creatinine 2.19 H (0.66-1.25) mg/dL Glucose 129 H (74-99) mg/dL Hemoglobin A1c (4.0-6.0) % Calcium 8.3 L (8.4-10.2) mg/dL
[2021-08-19 13:28] LABS: Eosinophils # (M) 0.31 k/uL (0-0.7); Lymphocytes # (M) 0.84 k/uL (1.0-4.8); Neutrophils # (M) 1.55 k/uL (1.3-7.7); Neutrophils % (M) 50 %; Nucleated Red Blood Cells 0 /100 WBC (0-0); Total Cells Counted 100
[2021-08-19 13:30] LABS: Poikilocytosis (M) Present
[2021-08-19] MEDS: ATORVASTATIN 40 MG TAB PO SCH (19:56)
[2021-08-19 20:01] LABS: Glucose,Whole Blood 224 mg/dL (75-99)
--- NOTE | 2021-08-19 22:26 | P.PN ---
Subjective Progress Note Date: 08/19/21 Principal diagnosis: Acute on chronic CHF with systolic dysfunction. Patient is a 75-year-old male with a known history of hypertension, hyperlipidemia, diabetes type 2 insulin-dependent, history of [place], osteoarthritis, severe mitral regurgitation, chronic CHF with systolic dysfu nction presents to ER with complaints of worsening shortness of breath, cough and chest discomfort. Patient was recently seen at [facility] due to non-ST elevated [place] and was started on heparin drip. Patient was eventually transferred to [facility] for high risk cardiac catheterization. Patient states that he did have cardiac cath and atherectomy at [facility] and was discharged home yesterday by Taxi. After reaching home patient started having symptoms of chest pain and cough and congestion again. Patient also felt suicidal at that time and came to ER for evaluation. Patient was given IV Lasix in the ER. Patient is supposed to follow-up with [facility] for mitral valve replacement. Chest x-ray showed findings consistent with CHF exacerbation. EKG showed atrial sensing ventricular paced rhythm. Laboratory culture WBC 5.0 hemoglobin 10.8 and platelets 167 and lymphocytes 0.3 Sodium 133 potassium 4.7 chloride 102 BUN 14 creatinine 1.5 and blood sugar is 261 Troponin 0 0.198, and 0.194 and 0.177 proBNP 4700 Albumin 3.4 Coronavirus PCR not detected. 08/19/2021 Patient is currently lying in the bed comfortably. No complaints of chest pain or worsening shortness breath. Patient is being continued on oral Lasix. Denies any nausea vomiting or abdominal pain or diarrhea. No headache or dizziness or lightheadedness. Continue on current cardiac medications. Patient was also seen by psychiatry and started on Zoloft. Patient has been afebrile. Apparently patient is not able to take care of himself at home. PT OT was consulted. Patient may need rehab. Laboratory showed WBC 3.1 hemoglobin 9.9 and platelets 171 Sodium 132 potassium 4.6 chloride 97 BUN 51 and creatinine 2.19 and blood sugar is 129. Current medications reviewed. Objective - Vital Signs Vital signs: Vital Signs Temp 98.2 F 08/19/21 20:00 Pulse 67 08/19/21 20:00 Resp 16 08/19/21 20:00 BP 109/55 08/19/21 20:00 Pulse Ox 98 08/19/21 20:00 Intake & Output 08/19/21 08/19/21 08/20/21 06:59 18:59 06:59 Weight 70.307 kg - Exam PHYSICAL EXAMINATION: Patient is lying in the bed comfortably, no acute distress, awake alert and oriented.. HEENT: Normocephalic. Neck is supple. Pupils reactive. Nostrils clear. Oral cavity is moist. Neck reveals no JVD, carotid bruits, or thyromegaly. CHEST EXAMINATION: Trachea is central. Symmetrical expansion. Bibasilar crackles. Nonlabored breathing. No wheezing.. CARDIAC: Normal S1, S2 with no gallops. No murmurs ABDOMEN: Soft. Bowel sounds normal. No organomegaly. No abdominal bruits. Extremities: rtrace edema. No clubbing or cyanosis Neurologically awake, alert, oriented x3 with well-coordinated movements. No focal deficits noted Skin: No rash or skin lesions. Psychiatric: Cooperative. Nonsuicidal Musculoskeletal: No joint swelling or deformity. Normal range of motion. - Labs CBC & Chem 7: 08/19/21 03:27 08/19/21 03:27 Labs: Abnormal Lab Results - Last 24 Hours (Table) 08/19/21 08/19/21 08/19/21 Range/Units 03:27 03:27 20:00 WBC 3.1 L (3.8-10.6) k/uL RBC 3.50 L (4.30-5.90) m/uL Hgb 9.9 L (13.0-17.5) gm/dL Hct 29.7 L (39.0-53.0) % RDW 16.6 H (11.5-15.5) % Lymphocytes # (Manual) 0.84 L (1.0-4.8) k/uL Sodium 132 L (137-145) mmol/L Chloride 97 L (98-107) mmol/L BUN 51 H (9-20) mg/dL Creatinine 2.19 H (0.66-1.25) mg/dL Glucose 129 H (74-99) mg/dL POC Glucose (mg/dL) 224 H (75-99) mg/dL Calcium 8.3 L (8.4-10.2) mg/dL Assessment and Plan Assessment: Acute on chronic CHF with systolic dysfunction. Ejection fraction less than 40%. Severe mitral regurgitation. Patient is on follow-up with [facility] for possible mitral valve replacement. Recently had cardiac catheterization and was discharged home on 08/17/2021. Recent admission with NSTEMI at [facility] and was transferred to [facility] for high risk cardiac catheterization. Suicidal ideation on admission Mildly elevated troponin level. Unlikely ACS. Acute on chronic kidney disease stage III History of permanent pacemaker placement Hypertension Diabetes type 2 insulin-dependent with hyperglycemia. Uncontrolled. Hyperlipidemia Previous history of smoking and marijuana use occasionally. DVT prophylaxis with heparin subcu Plan: Patient was given IV Lasix in the ER. Currently we can Lasix 40 mg daily. Card iology was consulted due to acute CHF exacerbation. Repeat 2D echocardiogram was ordered. Reports from [facility] are being obtained. Patient underwent right and left heart catheterization on 08/13/2021 revealing moderately elevated right-sided pressures, ejection fraction 20-25%, and triple vessel disease as follows: 71% left main, 80% proximal left circumflex, 75% OM 2, 71% proximal RCA, 75% mid RCA, and 100% distal RCA. Patient was found to be high risk for surgical MVR/CABG and he was referred for a structural heart disease evaluation. Continue with home blood pressure medications as started on insulin regimen. Continue with insulin sliding scale for better blood sugar control. GI and DVT prophylaxis. Duo nebs as needed. Continue to follow closely. Prognosis guarded with multiple medical problems and comorbid conditions. Time with Patient: Greater than 30
[2021-08-20 06:17] LABS: Glucose,Whole Blood 136 mg/dL (75-99)
[2021-08-20] MEDS: INSULIN DETEMIR (LEVEMIR) 100 UNIT/ML SYR SQ SCH (06:26)
[2021-08-20] MEDS: IPRATROPIUM 0.5 MG/2.5 ML NEBU INHALATION SCH ×3 (07:47→14:46)
[2021-08-20] MEDS: FORMOTEROL FUMARATE 20 MCG/2 ML NEBU INHALATION SCH (07:47)
[2021-08-20 09:01] LABS: Calcium 8.5 mg/dL (8.4-10.2); Potassium 4.8 mmol/L (3.5-5.1)
[2021-08-20] MEDS: amLODIPine 5 MG TAB PO SCH (09:21)
[2021-08-20] MEDS: ASPIRIN 81 MG PO SCH (09:21)
[2021-08-20] MEDS: HEPARIN SODIUM,PORCINE/PF 5,000 UNIT/0.5 ML SYRINGE SQ SCH ×2 (09:21→17:12)
[2021-08-20] MEDS: hydrALAZINE HCL 50 MG TAB PO SCH ×2 (09:22→17:18)
[2021-08-20] MEDS: SPIRONOLACTONE 25 MG TAB PO SCH (09:22)
[2021-08-20] MEDS: SERTRALINE 25 MG TAB PO SCH (09:22)
[2021-08-20] MEDS: FUROSEMIDE 40 MG TAB PO SCH (09:22)
[2021-08-20] MEDS: carvediloL 12.5 MG TAB PO SCH (09:22)
[2021-08-20] MEDS: CLOPIDOGREL 75 MG TAB PO SCH (09:22)
[2021-08-20] MEDS: LOSARTAN 50 MG TAB PO SCH (09:22)
[2021-08-20 09:30] LABS: Anisocytosis Slight; HCT 33.1 % (39.0-53.0); HGB 10.7 gm/dL (13.0-17.5); MCH 27.5 pg (25.0-35.0); MCHC 32.3 g/dL (31.0-37.0); MCV 85.1 fL (80.0-100.0); Mean Platelet Volume 10.5; Platelet Count 191 k/uL (150-450); RBC 3.89 m/uL (4.30-5.90); RDW 16.4 % (11.5-15.5); WBC 3.6 k/uL (3.8-10.6)
[2021-08-20 10:54] LABS: Glucose,Whole Blood 153 mg/dL (75-99)
--- NOTE | 2021-08-20 12:32 | P.PN ---
Subjective Progress Note Date: 08/20/21 HISTORY OF PRESENT ILLNESS: This is a 75 year old male with a past medical history significant for hypertension, hyperlipidemia, coronary artery disease, and severe mitral regurgitation. Patient follows in the office with Dr. Astorga. We have been asked to see the patient in consultation for CHF and abnormal troponins. Patient examined at the bedside. Patient presented to the hospital with suicidal ideations and shortness of breath. Patient states his breathing has improved this morning. He reports having an episode of chest discomfort yesterday that started in the middle of his chest and then he states the pain went all the down both of his legs. He states his has been happening at home when he is walking. He currently denies any chest pain or pressure. The patient was found to be in congestive heart failure. He was given a dose of IV lasix in the ER. Patient states he is being worked up at [facility] for a possible mitral valve replacement EKG reveals paced rhythm Chest xray findings consistent with CHF Most recent echocardiogram obtained in December 2019 revealed ejection fraction 40% with moderate mitral regurgitation. MICHAEL in June 2020 revealed ejection fraction 37%, mild to moderate tricuspid regurgitation, and severe mitral regurgitation Cardiac catheterization history: June 2020 revealing 20% distal left main, 35% ostial circumflex, 45% OM 2, right dominant, mild disease in the LAD, chronic subtotal occlusion of the RCA 08/19/2021 Patient examined this morning at the bedside. He denies shortness of breath. He remains on oral lasix. Echocardiogram completed revealing ejection fraction 30- 35%, severe mitral regurgitation. Mild tricuspid regurgitation. Addendum entered and electronically signed by Bettina Dolan NP-C 08/19/21 13:53: Records from [facility] reviewed. Patient underwent right and left heart catheterization on 08/13/2021 revealing moderately elevated right-sided pressure s, ejection fraction 20-25%, and triple vessel disease as follows: 71% left main, 80% proximal left circumflex, 75% OM 2, 71% proximal RCA, 75% mid RCA, and 100% distal RCA. Patient was found to be high risk for surgical MVR/CABG and he was referred for a structural heart disease evaluation. 08/20/2021 Patient examined this morning at the bedside. He denies chest pain or pressure. He denies SOB. Vital signs are stable. He is anxious to be discharged today. PHYSICAL EXAM: VITAL SIGNS: Reviewed. GENERAL: Well-developed in no acute distress. HEENT: Head is normocephalic. Pupils are equal, round. Sclerae anicteric. Mucous membranes of the mouth are moist. Neck supple. No JVD or thyromegaly LUNGS: Respirations even and unlabored. Lungs diminished to auscultation bilaterally. HEART: Regular rate and rhythm. S1 and S2 heard. Systolic murmur. ABDOMEN: Soft. Nondistended. Nontender. EXTREMITIES: Normal range of motion. No clubbing or cyanosis. Peripheral pulses intact. No lower extremity edema NEUROLOGIC: Awake and alert. Oriented x 3. ASSESSMENT: Suicidal ideation Acute on chronic systolic heart failure Coronary artery disease Abnormal troponins, ACS ruled out Chronic kidney disease Valvular heart disease History of PPM Hypertension Hyperlipidemia Diabetes Nicotine dependence PLAN: Continue current cardiac medications Patient is stable for discharge from a cardiac standpoint He is to follow up outpatient at [facility] regarding his mitral valve repair/replacement Nurse practitioner note has been reviewed by physician. Signing provider agrees with the documented findings, assessment, and plan of care. Objective - Vital Signs Vital signs: Vital Signs Temp 98.0 F 08/20/21 08:00 Pulse 72 08/20/21 11:28 Resp 16 08/20/21 11:28 BP 136/65 08/20/21 08:00 Pulse Ox 100 08/20/21 08:00 Intake & Output 08/19/21 08/20/21 08/20/21 18:59 06:59 18:59 Intake Total 240 Balance 240 Weight 70.307 kg 73.5 kg Intake: Oral 240 Other: # Voids 1 - Labs CBC & Chem 7: 08/20/21 08:12 08/20/21 08:12 Labs: Abnormal Lab Results - Last 24 Hours (Table) 08/19/21 08/19/21 08/20/21 Range/Units 03:27 20:00 06:16 WBC (3.8-10.6) k/uL RBC (4.30-5.90) m/uL Hgb (13.0-17.5) gm/dL Hct (39.0-53.0) % RDW (11.5-15.5) % Lymphocytes # (Manual) 0.84 L (1.0-4.8) k/uL Sodium (137-145) mmol/L BUN (9-20) mg/dL Creatinine (0.66-1.25) mg/dL Glucose (74-99) mg/dL POC Glucose (mg/dL) 224 H 136 H (75-99) mg/dL 08/20/21 08/20/21 08/20/21 Range/Units 08:12 08:12 10:41 WBC 3.6 L (3.8-10.6) k/uL RBC 3.89 L (4.30-5.90) m/uL Hgb 10.7 L (13.0-17.5) gm/dL Hct 33.1 L (39.0-53.0) % RDW 16.4 H (11.5-15.5) % Lymphocytes # (Manual) (1.0-4.8) k/uL Sodium 133 L (137-145) mmol/L BUN 55 H (9-20) mg/dL Creatinine 2.02 H (0.66-1.25) mg/dL Glucose 128 H (74-99) mg/dL POC Glucose (mg/dL) 153 H (75-99) mg/dL
[2021-08-20 14:05] VITALS: BMI 23.2
[2021-08-20 14:55] VITALS: RESP 18
[2021-08-20 15:39] LABS: Basophils # (M) 0.04 k/uL (0-0.2); Eosinophils # (M) 0.22 k/uL (0-0.7); Lymphocytes # (M) 1.12 k/uL (1.0-4.8); Monocytes # (M) 0.47 k/uL (0-1.0); Neutrophils # (M) 1.76 k/uL (1.3-7.7); Neutrophils % (M) 49 %; Nucleated Red Blood Cells 0 /100 WBC (0-0); Total Cells Counted 100
[2021-08-20 15:41] LABS: Poikilocytosis (M) Present
[2021-08-20 16:26] VITALS: BP 117/56; PULSE 68; TEMP 97.9
[2021-08-20 16:39] LABS: Glucose,Whole Blood 214 mg/dL (75-99)
--- NOTE | 2021-09-23 23:33 | P.DS ---
Providers Date of admission: 08/17/21 16:51 Expected date of discharge: 08/20/21 Attending physician: Myron Koehler Consults: 08/17/21 16:52 Consult Physician Routine Consulting Provider: Kel Moreno Consult Reason/Comments: Suicidal ideation Do you want consulting provider notified?: Yes Consult Physician Routine Consulting Provider: Ashu Hussein Consult Reason/Comments: CHF, elevated troponin Do you want consulting provider notified?: Yes Primary care physician: Mango Cook Hospital Course: Discharge diagnosis Acute on chronic CHF with systolic dysfunction. Ejection fraction less than 40%. Severe mitral regurgitation. Patient is on follow-up with [facility] for possible mitral valve replacement. Recently had cardiac catheterization and was discharged home on 08/17/2021. Recent admission with NSTEMI at [facility] and was transferred to [facility] for high risk cardiac catheterization. Suicidal ideation on admission Mildly elevated troponin level. Unlikely ACS. Acute on chronic kidney disease stage III History of permanent pacemaker placement Hypertension Diabetes type 2 insulin-dependent with hyperglycemia. Uncontrolled. Hyperlipidemia Previous history of smoking and marijuana use occasionally. DVT prophylaxis with heparin subcu Hospital course Patient is a 75-year-old male with a known history of hypertension, hyperlipidemia, diabetes type 2 insulin-dependent, history of SD, osteoarthritis, severe mitral regurgitation, chronic CHF with systolic dysfunction presents to ER with complaints of worsening shortness of breath, cough and chest discomfort. Patient was recently seen at [facility] due to non-ST elevated SD and was started on heparin drip. Patient was eventually transferred to [facility] for high risk cardiac catheterization. Patient states that he did have cardiac cath and atherectomy at [facility] and was discharged home yesterday by Taxi. After reaching home patient started having symptoms of chest pain and cough and congestion again. Patient also felt suicidal at that time and came to ER for evaluation. Patient was given IV Lasix in the ER. Patient is supposed to follow-up with [facility] for mitral valve replacement. Chest x-ray showed findings consistent with CHF exacerbation. EKG showed atrial sensing ventricular paced rhythm. Laboratory culture WBC 5.0 hemoglobin 10.8 and platelets 167 and lymphocytes 0.3 Sodium 133 potassium 4.7 chloride 102 BUN 14 creatinine 1.5 and blood sugar is 261 Troponin 0 0.198, and 0.194 and 0.177 proBNP 4700 Albumin 3.4 Coronavirus PCR not detected. 08/19/2021 Patient is currently lying in the bed comfortably. No complaints of chest pain or worsening shortness breath. Patient is being continued on oral Lasix. Denies any nausea vomiting or abdominal pain or diarrhea. No headache or dizziness or lightheadedness. Continue on current cardiac medications. Patient was also seen by psychiatry and started on Zoloft. Patient has been afebrile. Apparently patient is not able to take care of himself at home. PT OT was consulted. Patient may need rehab. Laboratory showed WBC 3.1 hemoglobin 9.9 and platelets 171 Sodium 132 potassium 4.6 chloride 97 BUN 51 and creatinine 2.19 and blood sugar is 129. 08/20/2021 Patient is currently resting in bed. No complaints of chest pain or shortness of breath reviewed. Clinically much improved. Denies any dizziness or lightheadedness. Records from [facility] reviewed. Patient was found to be high risk for surgical MVR/CABG and was referred for structural heart disease evaluation. Patient was recommended to follow-up with [facility] for further management. Patient is hemodynamically stable. Discharge medication reconciliation was done and patient is being discharged home today. Currently denied any suicidal ideation. Cleared from psychiatric standpoint. PHYSICAL EXAMINATION: Patient is lying in the bed comfortably, no acute distress, awake alert and oriented.. HEENT: Normocephalic. Neck is supple. Pupils reactive. Nostrils clear. Oral cavity is moist. Neck reveals no JVD, carotid bruits, or thyromegaly. CHEST EXAMINATION: Trachea is central. Symmetrical expansion. Bibasilar crackles. Nonlabored breathing. No wheezing.. CARDIAC: Normal S1, S2 with no gallops. No murmurs ABDOMEN: Soft. Bowel sounds normal. No organomegaly. No abdominal bruits. Extremities: rtrace edema. No clubbing or cyanosis Neurologically awake, alert, oriented x3 with well-coordinated movements. No focal deficits noted Skin: No rash or skin lesions. Psychiatric: Cooperative. Nonsuicidal Musculoskeletal: No joint swelling or deformity. Normal range of motion. - Vital Signs Vital signs: Vital Signs Temp 98.0 F 08/20/21 08:00 Pulse 72 08/20/21 11:28 Resp 16 08/20/21 11:28 BP 136/65 08/20/21 08:00 Pulse Ox 100 08/20/21 08:00 Intake & Output 08/19/21 08/20/21 08/20/21 18:59 06:59 18:59 Intake Total 240 Balance 240 Weight 70.307 kg 73.5 kg Intake: Oral 240 Other: # Voids 1 Time taken greater than 35 minutes in patient care out of which more than 50% was spent on counseling and coordination of care. Patient Condition at Discharge: Stable Plan - Discharge Summary New Discharge Prescriptions: New Melatonin 5 mg PO HS PRN #14 tablet PRN Reason: Insomnia Sertraline [Zoloft] 25 mg PO DAILY 14 Days #14 tab Continue Clopidogrel [Plavix] 75 mg PO DAILY Atorvastatin Calcium [Lipitor] 40 mg PO HS Aspirin 81 mg PO DAILY Ezetimibe [Zetia] 10 mg PO HS hydrALAZINE HCL [Apresoline] 100 mg PO TID Albuterol Inhaler [Ventolin Hfa Inhaler] 2 puff INHALATION RT-Q4H PRN PRN Reason: Shortness Of Breath amLODIPine [Norvasc] 5 mg PO DAILY INSULIN ASPART (NovoLOG) [NovoLOG (formulary)] 20 unit SQ AC-TID Losartan [Cozaar] 50 mg PO DAILY Umeclidinium Brm/Vilanterol Tr [Anoro Ellipta 62.5-25 Mcg INH] 1 puff INHALATION RT-DAILY Carvedilol [Coreg] 12.5 mg PO BID Furosemide [Lasix] 40 mg PO DAILY Oxymetazoline 0.05% Nasl [place] [Afrin 0.05% Nasal [place]] 2 spray EA NOSTRIL BID PRN PRN Reason: Congestion Spironolactone 25 mg PO DAILY Discontinued Melatonin [Melatonin Disolving] 12 mg PO HS PRN PRN Reason: Insomnia No Action Insulin Detemir [Levemir Flextouch Pen] 7 units SQ DAILY #10 ml Gabapentin [Neurontin] 100 mg PO BID #60 cap Discharge Medication List Aspirin 81 mg PO DAILY 05/15/14 [History] Atorvastatin Calcium [Lipitor] 40 mg PO HS 05/15/14 [History] Clopidogrel [Plavix] 75 mg PO DAILY 05/15/14 [History] Ezetimibe [Zetia] 10 mg PO HS 07/25/20 [History] hydrALAZINE HCL [Apresoline] 100 mg PO TID 07/25/20 [History] Albuterol Inhaler [Ventolin Hfa Inhaler] 2 puff INHALATION RT-Q4H PRN 08/17/21 [History] Carvedilol [Coreg] 12.5 mg PO BID 08/17/21 [History] Furosemide [Lasix] 40 mg PO DAILY 08/17/21 [History] INSULIN ASPART (NovoLOG) [NovoLOG (formulary)] 20 unit SQ AC-TID 08/17/21 [History] Losartan [Cozaar] 50 mg PO DAILY 08/17/21 [History] Oxymetazoline 0.05% Nasl [place] [Afrin 0.05% Nasal [place]] 2 spray EA NOSTRIL BID PRN 08/17/21 [History] Spironolactone 25 mg PO DAILY 08/17/21 [History] Umeclidinium Brm/Vilanterol Tr [Anoro Ellipta 62.5-25 Mcg INH] 1 puff INHALATION RT-DAILY 08/17/21 [History] amLODIPine [Norvasc] 5 mg PO DAILY 08/17/21 [History] Melatonin 5 mg PO HS PRN #14 tablet 08/19/21 [Rx] Sertraline [Zoloft] 25 mg PO DAILY 14 Days #14 tab 08/19/21 [Rx] Gabapentin [Neurontin] 100 mg PO BID #60 cap 08/27/21 [Rx] Insulin Detemir [Levemir Flextouch Pen] 7 units SQ DAILY #10 ml 08/28/21 [Rx] Follow up Appointment(s)/Referral(s): [facility], [NON-STAFF] - Mango Cook DO [Primary Care Provider] - 1 Week (September 02 10:30) Patient Instructions/Handouts: Heart Failure (DC) Activity/Diet/Wound Care/Special Instructions: TAKE MEDICATIONS PRESCRIBED HEART HEALTHY DIET ACTIVITY TOLERATED Discharge Disposition: HOME SELF-CARE
== END 2021-08-20 18:40 | disposition home or self-care (01) ==
LOC: EC 15:13 → INTOOBSV 16:51 → 3SCARD 16:51 → EEVIPCON 16:51 → 3SCARD 08-18 00:53 → UNDODISIN 08-20 18:40
PROVIDERS: ADMIT Hospitalist; ATTEND Hospitalist
DX: I13.0 Hypertensive heart and chronic kidney disease with heart failure and stage 1 through stage 4 chronic kidney disease, or unspecified chronic kidney disease (principal); I50.22 Chronic systolic (congestive) heart failure; N17.9 Acute kidney failure, unspecified; R45.851 Suicidal ideations; E11.65 Type 2 diabetes mellitus with hyperglycemia; I25.5 Ischemic cardiomyopathy; I25.10 Atherosclerotic heart disease of native coronary artery without angina pectoris; I08.1 Rheumatic disorders of both mitral and tricuspid valves; I27.20 Pulmonary hypertension, unspecified; N18.30 Chronic kidney disease, stage 3 unspecified; E11.22 Type 2 diabetes mellitus with diabetic chronic kidney disease; E78.5 Hyperlipidemia, unspecified; F32.A Depression, unspecified; M19.90 Unspecified osteoarthritis, unspecified site; H40.9 Unspecified glaucoma; G51.0 Bell's palsy; R41.3 Other amnesia; I25.2 Old myocardial infarction; G47.00 Insomnia, unspecified; Z20.822 Contact with and (suspected) exposure to COVID-19; Z79.01 Long term (current) use of anticoagulants; Z79.02 Long term (current) use of antithrombotics/antiplatelets; Z79.4 Long term (current) use of insulin; Z79.82 Long term (current) use of aspirin; Z79.899 Other long term (current) drug therapy; Z98.890 Other specified postprocedural states; Z87.891 Personal history of nicotine dependence; Z95.0 Presence of cardiac pacemaker; Z86.16 Personal history of COVID-19; Z85.46 Personal history of malignant neoplasm of prostate; Z96.642 Presence of left artificial hip joint
CPT/HCPCS: 96375 ×2; 99285 ×3; 96372 ×2; 96376 ×2; 96365; 96366; 36415; 94640 ×5; 93005; 93306; 97162; 97165; 83880; 80053; 80048 ×3; 83735; 84484; 85025 ×4; 85610; 85730; 83036; 87635; 71046; G0378 ×4; J2270 ×3; J1940 ×2; J2405; J3475; J1644 ×2

== ENCOUNTER 2021-08-26 11:51 | Observation (INO) | payer MEDICARE ==
--- NOTE | 2021-08-26 12:29 | ED ---
General Adult HPI - General Chief complaint: Chest Pain Stated complaint: Chest Pain Time Seen by Provider: 08/26/21 12:02 Source: patient Mode of arrival: EMS Limitations: physical limitation - History of Present Illness Initial comments: Dictation was produced using [employer] dictation software. please excuse any grammatical, word or spelling errors. Chief Complaint: 75-year-old male with past medical history of psychiatric disease and multiple cardiac comorbid's presents to the emergency department for chest pain. History of Present Illness: Patient is a 75-year-old male he went to his [facility] appointment. He complained to [facility] staff that he was having some chest pain. EMS was called patient is brought to the emergency department. T. Patient states he has sharp left anterior chest pain. Patient states is nonradiating. Patient was given some nitroglycerin by EMS. States the nitroglycerin helped his symptoms. Denies any symptoms currently. No shortness of breath. The ROS documented in this emergency department record has been reviewed and confirmed by me. Those systems with pertinent positive or negative responses have been documented in the HPI. All other systems are other negative and/or n oncontributory. PHYSICAL EXAM: General Impression: Alert and oriented x3, not in acute distress HEENT: Normocephalic atraumatic, extra-ocular movements intact, pupils equal and reactive to light bilaterally, mucous membranes moist. Cardiovascular: Heart regular rate and rhythm Chest: Able to complete full sentences, no retractions, no tachypnea Abdomen: abdomen soft, non-tender, non-distended, no organomegaly Musculoskeletal: Pulses present and equal in all extremities, no peripheral edema Motor: no focal deficits noted Neurological: CN II-XII grossly intact, no focal motor or sensory deficits noted Skin: Intact with no visualized rashes Psych: Normal affect and mood ED course: 75-year-old male with multiple cardiac comorbid disease presents to the emergency department for chest pain. His symptoms are atypical with typical features. His extensive cardiac history. Signs upon arrival shows blood pressure 88/64, rest of vital signs within acceptable limits. Laboratory evaluation obtained. CBC unremarkable., Coag panel is negative. Metabolic panel was within acceptable limits. Troponin is 0.042. Patient has history of elevated troponin. 0.042 is one of his lower measurements. Nonetheless patient has chest pain that's really with nitroglycerin in all individual with extensive history of cardiac disease. Patient given aspirin. Patient be admitted with cardiology consult, cardiac monitoring and serial troponins. Case discussed with Dr. Gonzalez. EKG interpretation: Ventricular rate 60, paced rhythm, MI interval 108, QRS 176, QTC 522. No MI prolongation, no QTC prolongation, no ST or T-wave changes noted. EKG compared to 08/17/2021 showing no changes. Overall, this EKG is unremarkable - Related Data Home Medications Medication Instructions Recorded Confirmed Aspirin 81 mg PO DAILY 05/15/14 08/26/21 Atorvastatin Calcium [Lipitor] 40 mg PO HS 05/15/14 08/26/21 Clopidogrel [Plavix] 75 mg PO DAILY 05/15/14 08/26/21 Ezetimibe [Zetia] 10 mg PO HS 07/25/20 08/26/21 hydrALAZINE HCL [Apresoline] 100 mg PO TID 07/25/20 08/26/21 Albuterol Inhaler [Ventolin Hfa 2 puff INHALATION RT-Q4H PRN 08/17/21 08/26/21 Inhaler] Carvedilol [Coreg] 12.5 mg PO BID 08/17/21 08/26/21 Furosemide [Lasix] 40 mg PO DAILY 08/17/21 08/26/21 INSULIN ASPART (NovoLOG) [NovoLOG 20 unit SQ AC-TID 08/17/21 08/26/21 (formulary)] Insulin Detemir [Levemir Flextouch 17 units SQ DAILY 08/17/21 08/26/21 Pen] Losartan [Cozaar] 50 mg PO DAILY 08/17/21 08/26/21 Oxymetazoline 0.05% Nasl [employer] 2 spray EA NOSTRIL BID PRN 08/17/21 08/26/21 [Afrin 0.05% Nasal [employer]] Spironolactone 25 mg PO DAILY 08/17/21 08/26/21 Umeclidinium Brm/Vilanterol Tr 1 puff INHALATION RT-DAILY 08/17/21 08/26/21 [Anoro Ellipta 62.5-25 Mcg INH] amLODIPine [Norvasc] 5 mg PO DAILY 08/17/21 08/26/21 Previous Rx's Medication Instructions Recorded Melatonin 5 mg PO HS PRN #14 tablet 08/19/21 Sertraline [Zoloft] 25 mg PO DAILY 14 Days #14 tab 08/19/21 Allergies Allergy/AdvReac Type Severity Reaction Status Date / Time No Known Allergies Allergy Verified 08/26/21 13:44 Review of Systems ROS Statement: Those systems with pertinent positive or pertinent negative responses have been documented in the HPI. ROS Other: All systems not noted in ROS Statement are negative. Past Medical History Past Medical History: Cancer, Chest Pain / Angina, Heart Failure, COPD, Diabetes Mellitus, Eye Disorder, Hyperlipidemia, Hypertension, Myocardial Infarction ([place]), Myocardial Infarction (non Q-wave), Osteoarthritis (OA), Prostate Disorder, Renal Disease Additional Past Medical History / Comment(s): "Needs Valve replacement."-Severe mitral vavle reguritation, Systolic HF, Ischemic cardiomyopathy, LBBB, Suicidal ideations, HX PROSTATE CANCER 30 yrs ago, BELLS PALSY, GLAUCOMA, SHORT TERM MEMORY LOSS. Lost 23 lbs recently and continues with decreased appetite. Hx CoVid December 2019. Insomnia. Chronic Hepatitis C, Stage 3 kidney disease Last Myocardial Infarction Date:: UNK History of Any Multi-Drug Resistant Organisms: None Reported Past Surgical History: Heart Catheterization, Joint Replacement, Prostate Surgery Additional Past Surgical History / Comment(s): Left hip replacement. Past Anesthesia/Blood Transfusion Reactions: No Reported Reaction Past Psychological History: No Psychological Hx Reported Smoking Status: Former smoker Past Alcohol Use History: Occasional Past Drug Use History: Marijuana - Past Family History Mother History Unknown: Yes General Exam Limitations: physical limitation Course Vital Signs 08/26/21 08/26/21 11:54 13:37 Temperature 97.7 F Pulse Rate 61 60 Respiratory 18 17 Rate Blood Pressure 88/64 120/66 O2 Sat by Pulse 98 98 Oximetry Medical Decision Making - Lab Data Result diagrams: 08/26/21 12:38 08/26/21 12:38 Lab Results 08/26/21 08/26/21 08/26/21 Range/Units 12:38 12:38 12:38 WBC 5.0 (3.8-10.6) k/uL RBC 3.98 L (4.30-5.90) m/uL Hgb 11.1 L (13.0-17.5) gm/dL Hct 34.3 L (39.0-53.0) % MCV 86.3 (80.0-100.0) fL MCH 27.8 (25.0-35.0) pg MCHC 32.2 (31.0-37.0) g/dL RDW 15.9 H (11.5-15.5) % Plt Count 230 (150-450) k/uL MPV 9.4 Neutrophils % 58 % Lymphocytes % 27 % Monocytes % 7 % Eosinophils % 3 % Basophils % 1 % Neutrophils # 2.9 (1.3-7.7) k/uL Lymphocytes # 1.4 (1.0-4.8) k/uL Monocytes # 0.4 (0-1.0) k/uL Eosinophils # 0.2 (0-0.7) k/uL Basophils # 0.1 (0-0.2) k/uL PT 11.4 (9.0-12.0) sec INR 1.1 (<1.2) APTT 23.4 (22.0-30.0) sec Sodium 136 L (137-145) mmol/L Potassium 4.9 (3.5-5.1) mmol/L Chloride 108 H (98-107) mmol/L Carbon Dioxide 20 L (22-30) mmol/L Anion Gap 8 mmol/L BUN 65 H (9-20) mg/dL Creatinine 1.84 H (0.66-1.25) mg/dL Est GFR (CKD-EPI)AfAm 41 (>60 ml/min/1.73 sqM) Est GFR (CKD-EPI)NonAf 35 (>60 ml/min/1.73 sqM) Glucose 136 H (74-99) mg/dL Calcium 9.1 (8.4-10.2) mg/dL Magnesium 1.9 (1.6-2.3) mg/dL Total Bilirubin 0.5 (0.2-1.3) mg/dL AST 49 (17-59) U/L ALT 37 (4-49) U/L Alkaline Phosphatase 57 (38-126) U/L Troponin I (0.000-0.034) ng/mL Total Protein 7.5 (6.3-8.2) g/dL Albumin 3.7 (3.5-5.0) g/dL 08/26/21 Range/Units 12:38 WBC (3.8-10.6) k/uL RBC (4.30-5.90) m/uL Hgb (13.0-17.5) gm/dL Hct (39.0-53.0) % MCV (80.0-100.0) fL MCH (25.0-35.0) pg MCHC (31.0-37.0) g/dL RDW (11.5-15.5) % Plt Count (150-450) k/uL MPV Neutrophils % % Lymphocytes % % Monocytes % % Eosinophils % % Basophils % % Neutrophils # (1.3-7.7) k/uL Lymphocytes # (1.0-4.8) k/uL Monocytes # (0-1.0) k/uL Eosinophils # (0-0.7) k/uL Basophils # (0-0.2) k/uL PT (9.0-12.0) sec INR (<1.2) APTT (22.0-30.0) sec Sodium (137-145) mmol/L Potassium (3.5-5.1) mmol/L Chloride (98-107) mmol/L Carbon Dioxide (22-30) mmol/L Anion Gap mmol/L BUN (9-20) mg/dL Creatinine (0.66-1.25) mg/dL Est GFR (CKD-EPI)AfAm (>60 ml/min/1.73 sqM) Est GFR (CKD-EPI)NonAf (>60 ml/min/1.73 sqM) Glucose (74-99) mg/dL Calcium (8.4-10.2) mg/dL Magnesium (1.6-2.3) mg/dL Total Bilirubin (0.2-1.3) mg/dL AST (17-59) U/L ALT (4-49) U/L Alkaline Phosphatase (38-126) U/L Troponin I 0.042 H* (0.000-0.034) ng/mL Total Protein (6.3-8.2) g/dL Albumin (3.5-5.0) g/dL Disposition Clinical Impression: Chest pain Disposition: ADMITTED IP TO THIS [facility] Condition: Fair Referrals: Mango Cook DO [Primary Care Provider] - 1-2 days
[2021-08-26 12:44] LABS: Basophils # (A) 0.1 k/uL (0-0.2); Basophils % (A) 1 %; Eosinophils # (A) 0.2 k/uL (0-0.7); Eosinophils % (A) 3 %; HCT 34.3 % (39.0-53.0); HGB 11.1 gm/dL (13.0-17.5); Lymphocytes # (A) 1.4 k/uL (1.0-4.8); Lymphocytes % (A) 27 %; MCH 27.8 pg (25.0-35.0); MCHC 32.2 g/dL (31.0-37.0); MCV 86.3 fL (80.0-100.0); Mean Platelet Volume 9.4; Monocytes # (A) 0.4 k/uL (0-1.0); Monocytes % (A) 7 %; Neutrophils # (A) 2.9 k/uL (1.3-7.7); Neutrophils % (A) 58 %; Platelet Count 230 k/uL (150-450); RBC 3.98 m/uL (4.30-5.90); RDW 15.9 % (11.5-15.5)
[2021-08-26 12:57] LABS: Albumin 3.7 g/dL (3.5-5.0); Calcium 9.1 mg/dL (8.4-10.2); Magnesium 1.9 mg/dL (1.6-2.3); Potassium 4.9 mmol/L (3.5-5.1); Total Bilirubin 0.5 mg/dL (0.2-1.3); Total Protein 7.5 g/dL (6.3-8.2)
[2021-08-26 13:06] LABS: INR 1.1 (<1.2)
[2021-08-26 13:07] LABS: Partial Thromboplastin Time 23.4 sec (22.0-30.0); Prothrombin Time 11.4 sec (9.0-12.0)
--- NOTE | 2021-08-26 13:11 | XR ---
EXAMINATION TYPE: XR chest 2V DATE OF EXAM: 08/26/2021 COMPARISON: Chest x-ray 9 days ago HISTORY: Chest pain. TECHNIQUE: Frontal and lateral views of the chest are obtained. FINDINGS: Cardiomegaly with multi lead pacemaker/defibrillator is redemonstrated. Lungs show no new suspicious focal airspace opacity, pleural effusion, or pneumothorax bilaterally. The osseous struc tures are intact. IMPRESSION: Cardiomegaly without acute pulmonary process.
[2021-08-26] MEDS ORDERED: ASPIRIN 81 MG PO STA (14:18)
--- NOTE | 2021-08-26 15:08 | P.HPIM ---
History of Present Illness This is a pleasant 75 years old male with past medical history of Heart Failure, COPD, Diabetes Mellitus, Hyperlipidemia, Hypertension,Osteoarthritis , Prostate Disorder, Renal Disease, Severe mitral vavle reguritation, Systolic HF, Ischemic cardiomyopathy, LBBB, Suicidal ideations, HX PROSTATE CANCER 30 yrs ago status post surgery, BELLS PALSY, GLAUCOMA, SHORT TERM MEMORY LOSS. Hx CoVid December 2019. Insomnia. Chronic Hepatitis C, Stage 3 kidney disease Patient presents because of chest pain and back pain with walking difficulty. Patient says that he has left-sided chest pain for the last 2 days, nonradiating about 7-8/10 in severity, with no dyspnea or coughing. No dizziness. Also has been complaining of from low back pain with difficulty walking for about a month with little tingling in both legs. He denies smoking, alcohol or illicit drugs He feels little depressed but he denies suicidal ideation Vitals looks stable Labs reviewed including unremarkable CBC, BMP and liver enzymes. Creatinine is 1.8 which is at baseline 1.8-2.1. Troponin is elevated 0.04 but it's chronically elevated since 08/17/2021 at 0.17-0.19 Echocardiogram earlier this month 08/18: Ejection fraction 30-35% with wall motion hypokinesia and severe mitral regurgitation Chest x-ray: No acute process. EKG showing AV sequential or dual chamber pacemaker Review of Systems CONSTITUTIONAL: No fever, no malaise, no fatigue. HEENT: No recent visual problems or hearing problems. Denied any sore throat. CARDIOVASCULAR: No orthopnea, PND, no palpitations, no syncope. PULMONARY: No shortness of breath, no cough, no hemoptysis. GASTROINTESTINAL: No diarrhea, no nausea, no vomiting, no abdominal pain. Normoactive bowel sounds. NEUROLOGICAL: No headaches, no weakness, no numbness. HEMATOLOGICAL: Denies any bleeding or petechiae. GENITOURINARY: Denies any burning micturition, frequency, or urgency. MUSCULOSKELETAL/RHEUMATOLOGICAL: Denies any joint pain, swelling, or any muscle pain. ENDOCRINE: Denies any polyuria or polydipsia. Past Medical History Past Medical History: Cancer, Chest Pain / Angina, Heart Failure, COPD, Diabetes Mellitus, Eye Disorder, Hyperlipidemia, Hypertension, Myocardial Infarction ([place]), Myocardial Infarction (non Q-wave), Osteoarthritis (OA), Prostate Disorder, Renal Disease Additional Past Medical History / Comment(s): "Needs Valve replacement."-Severe mitral vavle reguritation, Systolic HF, Ischemic cardiomyopathy, LBBB, Suicidal ideations, HX PROSTATE CANCER 30 yrs ago, BELLS PALSY, GLAUCOMA, SHORT TERM MEMORY LOSS. Lost 23 lbs recently and continues with decreased appetite. Hx CoVid December 2019. Insomnia. Chronic Hepatitis C, Stage 3 kidney disease Last Myocardial Infarction Date:: UNK History of Any Multi-Drug Resistant Organisms: None Reported Past Surgical History: Heart Catheterization, Joint Replacement, Prostate Surgery Additional Past Surgical History / Comment(s): Left hip replacement. Past Anesthesia/Blood Transfusion Reactions: No Reported Reaction Past Psychological History: No Psychological Hx Reported Smoking Status: Former smoker Past Alcohol Use History: Occasional Past Drug Use History: Marijuana - Past Family History Mother History Unknown: Yes Medications and Allergies Home Medications Medication Instructions Recorded Confirmed Type Aspirin 81 mg PO DAILY 05/15/14 08/26/21 History Atorvastatin Calcium [Lipitor] 40 mg PO HS 05/15/14 08/26/21 History Clopidogrel [Plavix] 75 mg PO DAILY 05/15/14 08/26/21 History Ezetimibe [Zetia] 10 mg PO HS 07/25/20 08/26/21 History hydrALAZINE HCL [Apresoline] 100 mg PO TID 07/25/20 08/26/21 History Albuterol Inhaler [Ventolin Hfa 2 puff INHALATION RT-Q4H PRN 08/17/21 08/26/21 History Inhaler] Carvedilol [Coreg] 12.5 mg PO BID 08/17/21 08/26/21 History Furosemide [Lasix] 40 mg PO DAILY 08/17/21 08/26/21 History INSULIN ASPART (NovoLOG) [NovoLOG 20 unit SQ AC-TID 08/17/21 08/26/21 History (formulary)] Insulin Detemir [Levemir Flextouch 17 units SQ DAILY 08/17/21 08/26/21 History Pen] Losartan [Cozaar] 50 mg PO DAILY 08/17/21 08/26/21 History Oxymetazoline 0.05% Nasl [place] 2 spray EA NOSTRIL BID PRN 08/17/21 08/26/21 History [Afrin 0.05% Nasal [place]] Spironolactone 25 mg PO DAILY 08/17/21 08/26/21 History Umeclidinium Brm/Vilanterol Tr 1 puff INHALATION RT-DAILY 08/17/21 08/26/21 History [Anoro Ellipta 62.5-25 Mcg INH] amLODIPine [Norvasc] 5 mg PO DAILY 08/17/21 08/26/21 History Melatonin 5 mg PO HS PRN #14 tablet 08/19/21 08/26/21 Rx Sertraline [Zoloft] 25 mg PO DAILY 14 Days #14 tab 08/19/21 08/26/21 Rx Allergies Allergy/AdvReac Type Severity Reaction Status Date / Time No Known Allergies Allergy Verified 08/26/21 13:44 Physical Exam Vitals: Vital Signs Temp Pulse Resp BP Pulse Ox 08/26/21 13:37 60 17 120/66 98 08/26/21 11:54 97.7 F 61 18 88/64 98 Intake and Output 08/25/21 08/26/21 08/26/21 22:59 06:59 14:59 Other: Weight 68.039 kg GENERAL: The patient is alert and oriented x3, not in any acute distress. Well developed, well nourished. HEENT: Pupils are round and equally reacting to light. EOMI. No scleral icterus. No conjunctival pallor. Normocephalic, atraumatic. No pharyngeal erythema. No thyromegaly. CARDIOVASCULAR: S1 and S2 present. No murmurs, rubs, or gallops. PULMONARY: Chest is clear to auscultation, no wheezing or crackles. ABDOMEN: Soft, nontender, nondistended, normoactive bowel sounds. No palpable organomegaly. MUSCULOSKELETAL: No joint swelling or deformity. EXTREMITIES: No cyanosis, clubbing, or pedal edema. NEUROLOGICAL: Gross neurological examination did not reveal any focal deficits. SKIN: No rashes. No petechiae Results CBC & Chem 7: 08/26/21 12:38 08/26/21 12:38 Labs: Abnormal Lab Results - Last 24 Hours (Table) 08/26/21 08/26/21 08/26/21 Range/Units 12:38 12:38 12:38 RBC 3.98 L (4.30-5.90) m/uL Hgb 11.1 L (13.0-17.5) gm/dL Hct 34.3 L (39.0-53.0) % RDW 15.9 H (11.5-15.5) % Sodium 136 L (137-145) mmol/L Chloride 108 H (98-107) mmol/L Carbon Dioxide 20 L (22-30) mmol/L BUN 65 H (9-20) mg/dL Creatinine 1.84 H (0.66-1.25) mg/dL Glucose 136 H (74-99) mg/dL Troponin I 0.042 H* (0.000-0.034) ng/mL Assessment and Plan Assessment: Chest pain, rule out cardiac causes Chronically elevated troponin Chronic low back pain with gait difficulty Deconditioning Chronic systolic CHF and ischemic cardiomyopathy History of coronary artery disease Diabetes mellitus Hypertension Hyperlipidemia History of osteoarthritis History of prostate cancer History of severe mitral valve regurgitation History of left bundle-branch block History of suicidal ideation History of Szymanski's palsy Glaucoma History of short-term memory loss History of Covid infection on 12/2019 Chronic hepatitis C Chronic kidney disease stage III Plan: This is a pleasant 75 years old male who presents with chest pain Continue with serial troponin Continue with aspirin Cardiology consult Possible consult orthopedic team for his low back pain Labs and medication were reviewed.. Continue same treatment. Continue with symptomatic treatment. Resume home medication. Monitor lytes and vitals. DVT and GI prophylaxis. Further recommendations depends on the clinical course of the patient DVT prophylaxis: Subcutaneous heparin GI Prophylaxis: Pepcid Prognosis is guarded
--- NOTE | 2021-08-26 16:01 | XR ---
Lumbar spine HISTORY: Low back pain 3 views of the lumbar spine, correlation prior exam 03/16/2016 Lumbar vertebral bodies show preserved height and alignment, bone mineralization. There is multilevel spondylosis. Disc spaces are stable. Sclerosis in the posterior elements of the lower lumbar spine i s again noted. Atherosclerotic vascular calcifications present along the aortoiliac distribution. IMPRESSION: Lumbar spondylosis, facet arthropathy change again noted.
[2021-08-26] MEDS ORDERED: ALBUTEROL NEBULIZED 2.5 MG/3 ML INHALATION PRN (20:44)
[2021-08-26] MEDS ORDERED: MELATONIN 5 MG TABLET PO PRN (20:44)
[2021-08-26] MEDS ORDERED: FAMOTIDINE 20 MG/2 ML VIAL IV SCH (21:00)
[2021-08-27] MEDS: carvediloL 12.5 MG TAB PO SCH ×3 (00:06→20:04)
[2021-08-27] MEDS: ATORVASTATIN 40 MG TAB PO SCH ×2 (00:06→20:04)
[2021-08-27] MEDS: HEPARIN SODIUM,PORCINE/PF 5,000 UNIT/0.5 ML SYRINGE SQ SCH ×3 (00:06→20:05)
[2021-08-27 01:02] LABS: Glucose,Whole Blood 138 mg/dL (75-99)
[2021-08-27] MEDS: INSULIN ASPART (NovoLOG) 100 UNIT/ML VIAL SQ SCH ×8 (02:11→20:05)
[2021-08-27] MEDS: EZETIMIBE 10 MG TAB PO SCH ×2 (02:23→20:05)
[2021-08-27] MEDS ORDERED: MORPHINE SULFATE 4 MG/ML SYRINGE IVP STA (04:38)
[2021-08-27 06:09] LABS: Glucose,Whole Blood 79 mg/dL (75-99)
[2021-08-27] MEDS: INSULIN DETEMIR (LEVEMIR) 100 UNIT/ML SYR SQ SCH (08:31)
[2021-08-27] MEDS ORDERED: ASPIRIN 325 MG TAB PO SCH (09:00)
[2021-08-27] MEDS: CLOPIDOGREL 75 MG TAB PO SCH (10:04)
[2021-08-27] MEDS: amLODIPine 5 MG TAB PO SCH (10:04)
[2021-08-27] MEDS: SPIRONOLACTONE 25 MG TAB PO SCH (10:04)
[2021-08-27] MEDS: FUROSEMIDE 40 MG TAB PO SCH (10:04)
[2021-08-27] MEDS: LOSARTAN 50 MG TAB PO SCH (10:04)
[2021-08-27] MEDS: SERTRALINE 25 MG TAB PO SCH (10:05)
[2021-08-27] MEDS: ACETAMINOPHEN TAB 500 MG TAB PO PRN ×2 (10:08→23:57)
[2021-08-27] MEDS ORDERED: GABAPENTIN 100 MG CAP PO STA (11:04)
--- NOTE | 2021-08-27 11:25 | P.CRDCN ---
History of Present Illness History of present illness: HISTORY OF PRESENT ILLNESS: This is a 75 year old male with a past medical history significant for hypertension, hyperlipidemia, coronary artery disease, ischemic cardiomyopathy s/p BiV ICD placement April 2021 and severe mitral regurgitation ,type 2 diabetes, chronic kidney disease, intermittent claudication, former nicotine dependence, suicidal ideations, Covid-19 in December 2019. Patient follows in the office with Dr. Morfin and Dr. Spann at [facility], also used to see Dr. Hussein. We have been asked to see the patient in consultation for chest pain. Patient examined at the bedside. He presents to the emergency department with complaints of bilateral leg pain. He states when he walks his bilateral legs have increased pain, tingling and numbness. He states it has progressively gotten worse. He also has been having shortness of breath, which is chronic for him. He denies any symptoms of orthopnea or PND. He has no lower extremity edema. He occasionally has left sided chest pain, non-radiating, non-exertional, it comes and goes. He denies any associated nausea, vomiting, diaphoresis. He endorses a syncopal episode 2 weeks ago, he was walking to the kitchen and states he passed out. Unwitnessed he states he woke up on his own. He did not get evaluated for this at the time. Early this month patient patient presented to the hospital with suicidal ideations and shortness of breath. Echocardiogram was obtained revealing ejection fraction 30-35%, severe mitral regurgitation. Mild tricuspid regurgitation. Records from [facility] obtained 08/19/21: Patient underwent right and left heart catheterization on 08/13/2021 revealing moderately elevated right-sided pressures, ejection fraction 20-25%, and triple vessel disease as follows: 71% left main, 80% proximal left circumflex, 75% OM 2, 71% proximal RCA, 75% mid RCA, and 100% distal RCA. Patient was found to be high risk for surgical MVR/CABG and he was referred for a structural heart disease evaluation. He states he is still waiting to hear back on timing of the procedure. DIAGNOSTICS: EKG reveals AV paced rhythm Chest xray findings cardiomegaly MICHAEL in June 2020 revealed ejection fraction 37%, mild to moderate tricuspid regurgitation, and severe mitral regurgitation REVIEW OF SYSTEMS: At the time of my exam: CONSTITUTIONAL: Denies fever or chills. Positive pain in bilateral lower extremities HEENT: Denies blurred vision, vision changes, or eye pain. Denies hemoptysis CARDIOVASCULAR: Positive chest pain. Positive shortness of breath Denies orthopnea. Denies PND. Denies palpitations RESPIRATORY: Positive shortness of breath. GASTROINTESTINAL: Denies abdominal pain. Denies nausea or vomiting. HEMATOLOGIC: Denies bleeding disorders. GENITOURINARY: Denies any blood in urine. SKIN: Denies pruitis. Denies rash. PHYSICAL EXAM: VITAL SIGNS: Reviewed. GENERAL: Well-developed in no acute distress. HEENT: Head is normocephalic. Pupils are equal, round. Sclerae anicteric. Mucous membranes of the mouth are moist. Neck supple. No JVD or thyromegaly LUNGS: Respirations even and unlabored. Lungs diminished to auscultation bilaterally. HEART: Regular rate and rhythm. S1 and S2 heard. Systolic murmur. ABDOMEN: Soft. Nondistended. Nontender. EXTREMITIES: Normal range of motion. No clubbing or cyanosis. Difficult to assess pulses in bilateral lower extremities No lower extremity edema NEUROLOGIC: Awake and alert. Oriented x 3. ASSESSMENT: Bilateral lower extremity numbness and tingling, and pain Chronic systolic heart failure Chest pain, atypical, acute coronary syndrome ruled out Severe mitral regurgitation known Ischemic cardiomyopathy s/p BiV ICD April 2021 at [facility] Coronary artery disease Chronic kidney disease History of PPM Hypertension Hyperlipidemia Type 2 Diabetes Nicotine dependence PLAN: From a cardiology perspective, acute coronary syndrome has been ruled out. Recommend outpatient management of patient's bilateral lower extremity pain. Patient can be discharged and follow-up with Dr. Morfin and Dr. Spann at [facility]. Nurse practitioner note has been reviewed by physician. Signing provider agrees with the documented findings, assessment, and plan of care. Past Medical History Past Medical History: Cancer, Chest Pain / Angina, Heart Failure, COPD, Diabetes Mellitus, Eye Disorder, Hyperlipidemia, Hypertension, Myocardial Infarction ([place]), Myocardial Infarction (non Q-wave), Osteoarthritis (OA), Prostate Dis order, Renal Disease Additional Past Medical History / Comment(s): "Needs Valve replacement."-Severe mitral vavle reguritation, Systolic HF, Ischemic cardiomyopathy, LBBB, Suicidal ideations, HX PROSTATE CANCER 30 yrs ago, BELLS PALSY, GLAUCOMA, SHORT TERM MEMORY LOSS. Lost 23 lbs recently and continues with decreased appetite. Hx CoVid December 2019. Insomnia. Chronic Hepatitis C, Stage 3 kidney disease Last Myocardial Infarction Date:: UNK History of Any Multi-Drug Resistant Organisms: None Reported Past Surgical History: Heart Catheterization, Joint Replacement, Prostate Surgery Additional Past Surgical History / Comment(s): Left hip replacement. Past Anesthesia/Blood Transfusion Reactions: No Reported Reaction Past Psychological History: No Psychological Hx Reported Smoking Status: Former smoker Past Alcohol Use History: Occasional Additional Past Alcohol Use History / Comment(s): Quit smoking 2 yrs ago, smoked 51 yrs. Past Drug Use History: Marijuana Additional Drug Use History / Comment(s): Hasn't used Marijuana for 2 yrs ago. - Past Family History Mother History Unknown: Yes Medications and Allergies Home Medications Medication Instructions Recorded Confirmed Type Aspirin 81 mg PO DAILY 05/15/14 08/26/21 History Atorvastatin Calcium [Lipitor] 40 mg PO HS 05/15/14 08/26/21 History Clopidogrel [Plavix] 75 mg PO DAILY 05/15/14 08/26/21 History Ezetimibe [Zetia] 10 mg PO HS 07/25/20 08/26/21 History hydrALAZINE HCL [Apresoline] 100 mg PO TID 07/25/20 08/26/21 History Albuterol Inhaler [Ventolin Hfa 2 puff INHALATION RT-Q4H PRN 08/17/21 08/26/21 History Inhaler] Carvedilol [Coreg] 12.5 mg PO BID 08/17/21 08/26/21 History Furosemide [Lasix] 40 mg PO DAILY 08/17/21 08/26/21 History INSULIN ASPART (NovoLOG) [NovoLOG 20 unit SQ AC-TID 08/17/21 08/26/21 History (formulary)] Insulin Detemir [Levemir Flextouch 17 units SQ DAILY 08/17/21 08/26/21 History Pen] Losartan [Cozaar] 50 mg PO DAILY 08/17/21 08/26/21 History Oxymetazoline 0.05% Nasl [place] 2 spray EA NOSTRIL BID PRN 08/17/21 08/26/21 History [Afrin 0.05% Nasal [place]] Spironolactone 25 mg PO DAILY 08/17/21 08/26/21 History Umeclidinium Brm/Vilanterol Tr 1 puff INHALATION RT-DAILY 08/17/21 08/26/21 History [Anoro Ellipta 62.5-25 Mcg INH] amLODIPine [Norvasc] 5 mg PO DAILY 08/17/21 08/26/21 History Melatonin 5 mg PO HS PRN #14 tablet 08/19/21 08/26/21 Rx Sertraline [Zoloft] 25 mg PO DAILY 14 Days #14 tab 08/19/21 08/26/21 Rx Allergies Allergy/AdvReac Type Severity Reaction Status Date / Time No Known Allergies Allergy Verified 08/26/21 13:44 Physical Exam Vitals: Vital Signs Temp Pulse Pulse Resp BP BP Pulse Ox 08/27/21 04:00 97.9 F 60 18 139/70 08/27/21 02:00 58 L 18 08/27/21 00:13 98.0 F 58 L 18 149/72 08/27/21 00:10 60 18 120/66 99 08/26/21 18:00 62 18 118/87 99 08/26/21 13:37 60 17 120/66 98 08/26/21 11:54 97.7 F 61 18 88/64 98 Intake and Output 08/26/21 08/26/21 08/27/21 14:59 22:59 06:59 Intake Total 480 Output Total 100 Balance 380 Intake: Oral 480 Output: Urine 100 Other: Weight 68.039 kg 66.9 kg Results 08/26/21 12:38 08/26/21 12:38 Cardiac Enzymes 08/26/21 08/26/21 08/26/21 Range/Units 12:38 12:38 16:57 AST 49 (17-59) U/L Troponin I 0.042 H* 0.022 (0.000-0.034) ng/mL 08/26/21 Range/Units 20:52 AST (17-59) U/L Troponin I 0.028 (0.000-0.034) ng/mL Coagulation 08/26/21 Range/Units 12:38 PT 11.4 (9.0-12.0) sec APTT 23.4 (22.0-30.0) sec CBC 08/26/21 Range/Units 12:38 WBC 5.0 (3.8-10.6) k/uL RBC 3.98 L (4.30-5.90) m/uL Hgb 11.1 L (13.0-17.5) gm/dL Hct 34.3 L (39.0-53.0) % Plt Count 230 (150-450) k/uL Comprehensive Metabolic Panel 08/26/21 Range/Units 12:38 Sodium 136 L (137-145) mmol/L Potassium 4.9 (3.5-5.1) mmol/L Chloride 108 H (98-107) mmol/L Carbon Dioxide 20 L (22-30) mmol/L BUN 65 H (9-20) mg/dL Creatinine 1.84 H (0.66-1.25) mg/dL Glucose 136 H (74-99) mg/dL Calcium 9.1 (8.4-10.2) mg/dL AST 49 (17-59) U/L ALT 37 (4-49) U/L Alkaline Phosphatase 57 (38-126) U/L Total Protein 7.5 (6.3-8.2) g/dL Albumin 3.7 (3.5-5.0) g/dL Current Medications Generic Name Dose Route Start Last Admin Trade Name Freq PRN Reason Stop Dose Admin Albuterol Sulfate 2.5 mg 08/26/21 20:44 Albuterol Nebulized 2.5 Mg/3 Ml INHALATION RT-Q4H PRN Shortness Of Breath Amlodipine Besylate 5 mg 08/27/21 09:00 Amlodipine 5 Mg Tab PO DAILY [facility] Aspirin 325 mg 08/27/21 09:00 Aspirin 325 Mg Tab PO DAILY [facility] Atorvastatin Calcium 40 mg 08/26/21 21:00 08/27/21 00:06 Atorvastatin 40 Mg Tab PO 40 mg HS ANDRESSA Administration Carvedilol 12.5 mg 08/26/21 21:00 08/27/21 00:06 Carvedilol 12.5 Mg Tab PO 12.5 mg BID ANDRESSA Administration Clopidogrel Bisulfate 75 mg 08/27/21 09:00 Clopidogrel 75 Mg Tab PO DAILY ANDRESSA Ezetimibe 10 mg 08/26/21 21:00 08/27/21 02:23 Ezetimibe 10 Mg Tab PO 10 mg HS ANDRESSA Administration Famotidine 20 mg 08/26/21 21:00 08/27/21 00:05 Famotidine 20 Mg/2 Ml Vial IV 20 mg Q24H ANDRESSA Administration Furosemide 40 mg 08/27/21 09:00 Furosemide 40 Mg Tab PO DAILY ANDRESSA Heparin Sodium (Porcine) 5,000 unit 08/26/21 21:00 08/27/21 00:06 Heparin Sodium,Porcine/Pf 5,000 Unit/0.5 Ml Syringe SQ 5,000 unit Q12HR ANDRESSA Administration Insulin Aspart 20 unit 08/27/21 07:30 Insulin Aspart (Novolog) 100 Unit/Ml Vial SQ AC-TID ANDRESSA Insulin Aspart 0 unit 08/26/21 21:00 08/27/21 02:11 Insulin Aspart (Novolog) 100 Unit/Ml Vial SQ 100 unit ACHS ANDRESSA Administration Protocol Insulin Detemir 5 unit 08/27/21 07:00 Insulin Detemir (Levemir) 100 Unit/Ml Syr SQ DAILY@0700 ANDRESSA Losartan Potassium 50 mg 08/27/21 09:00 Losartan 50 Mg Tab PO DAILY ANDRESSA Melatonin 5 mg 08/26/21 20:44 Melatonin 5 Mg Tablet PO HS PRN Insomnia Nitroglycerin 0.4 mg 08/26/21 14:18 Nitroglycerin Sl Tabs 0.4 Mg Tab SUBLINGUAL Q5M PRN Chest Pain Sertraline HCl 25 mg 08/27/21 09:00 Sertraline 25 Mg Tab PO DAILY ANDRESSA Spironolactone 25 mg 08/27/21 09:00 Spironolactone 25 Mg Tab PO DAILY ANDRESSA Intake and Output 08/26/21 08/26/21 08/27/21 14:59 22:59 06:59 Intake Total 480 Output Total 100 Balance 380 Intake: Oral 480 Output: Urine 100 Other: Weight 68.039 kg 66.9 kg Patient Weight 08/27/21 06:59 Weight 66.9 kg 08/26/21 12:38 08/26/21 12:38
[2021-08-27 11:37] LABS: Glucose,Whole Blood 273 mg/dL (75-99)
[2021-08-27] MEDS: GABAPENTIN 100 MG CAP PO SCH ×2 (11:38→20:04)
[2021-08-27 13:09] LABS: Chol/HDL Ratio 2.37 Ratio; LDL Cholesterol,Calculated 82.3 mg/dL (0.0-131.0); VLDL Calculation 13.56 mg/dL (5.00-40.00)
--- NOTE | 2021-08-27 13:42 | US ---
EXAMINATION TYPE: US venous doppler duplex LE DATE OF EXAM: 08/27/2021 1:22 PM COMPARISON: NONE CLINICAL HISTORY: leg swelling. Pain SIDE PERFORMED: Bilateral TECHNIQUE: The lower extremity deep venous system is examined utilizing real time linear array sonog krystin with graded compression, doppler sonography and color-flow sonography. VESSELS IMAGED: Common Femoral Vein Deep Femoral Vein Greater Saphenous Vein * Femoral Vein Popliteal Vein Small Saphenous Vein * Proximal Calf Veins (* superficial vessels) Significant amount of plaque seen within bilateral lower extremities Right Leg: Negative for DVT Left Leg: Negative for DVT IMPRESSION: Grayscale, color doppler, spectral doppler imaging performed of the deep veins of the lo wer extremities. There is normal flow, compressibility, vascular waveforms.
[2021-08-27] MEDS: NITROGLYCERIN SL TABS 0.4 MG TAB SUBLINGUAL PRN ×2 (16:20→16:28)
[2021-08-27 16:27] LABS: Glucose,Whole Blood 109 mg/dL (75-99)
[2021-08-27 19:52] LABS: Glucose,Whole Blood 215 mg/dL (75-99)
[2021-08-27] MEDS ORDERED: FAMOTIDINE 20 MG TAB PO SCH (21:00)
--- NOTE | 2021-08-27 21:40 | P.GSCN ---
History of Present Illness Consult date: 08/27/21 History of present illness: Valentino is a 75-year-old male who presented to the hospital with chest pain as well as leg pain. He has a past medical history including hypertension, hyperlipidemia, coronary artery disease, ischemic cardiomyopathy with ICD placement in April 2021, severe mitral regurg, diabetes, COPD, peripheral arterial disease with claudication, history of tobacco abuse and COVID-19 hematocrit 2019. He recently underwent heart catheterization at [facility] at the being of this month and was found to be high risk for surgical MVR/CABG was referred for structural heart disease evaluation. He is awaiting her back from them regarding this. He states that as far as his legs are concerned he can walk well 30 steps before he has pain. This is been ongoing for a long period of time but worsening over time. He denies any pain at rest. He denies any wounds. He states that he feels this tingling type pain from his hips down to his feet along with subsequent numbness Review of Systems 10 point review of systems performed. Pertinent positives and negatives per the HPI Past Medical History Past Medical History: Cancer, Chest Pain / Angina, Heart Failure, COPD, Diabetes Mellitus, Eye Disorder, Hyperlipidemia, Hypertension, Myocardial Infarction ([place]), Myocardial Infarction (non Q-wave), Osteoarthritis (OA), Prostate Disorder, Renal Disease Additional Past Medical History / Comment(s): "Needs Valve replacement."-Severe mitral vavle reguritation, Systolic HF, Ischemic cardiomyopathy, LBBB, Suicidal ideations, HX PROSTATE CANCER 30 yrs ago, BELLS PALSY, GLAUCOMA, SHORT TERM MEMORY LOSS. Lost 23 lbs recently and continues with decreased appetite. Hx CoVid December 2019. Insomnia. Chronic Hepatitis C, Stage 3 kidney disease Last Myocardial Infarction Date:: UNK History of Any Multi-Drug Resistant Organisms: None Reported Past Surgical History: Heart Catheterization, Joint Replacement, Prostate Surgery Additional Past Surgical History / Comment(s): Left hip replacement. Past Anesthesia/Blood Transfusion Reactions: No Reported Reaction Past Psychological History: No Psychological Hx Reported Smoking Status: Former smoker Past Alcohol Use History: Occasional Additional Past Alcohol Use History / Comment(s): Quit smoking 2 yrs ago, smoked 51 yrs. Past Drug Use History: Marijuana Additional Drug Use History / Comment(s): Hasn't used Marijuana for 2 yrs ago. - Past Family History Mother History Unknown: Yes Medications and Allergies Home Medications Medication Instructions Recorded Confirmed Type Aspirin 81 mg PO DAILY 05/15/14 08/26/21 History Atorvastatin Calcium [Lipitor] 40 mg PO HS 05/15/14 08/26/21 History Clopidogrel [Plavix] 75 mg PO DAILY 05/15/14 08/26/21 History Ezetimibe [Zetia] 10 mg PO HS 07/25/20 08/26/21 History hydrALAZINE HCL [Apresoline] 100 mg PO TID 07/25/20 08/26/21 History Albuterol Inhaler [Ventolin Hfa 2 puff INHALATION RT-Q4H PRN 08/17/21 08/26/21 History Inhaler] Carvedilol [Coreg] 12.5 mg PO BID 08/17/21 08/26/21 History Furosemide [Lasix] 40 mg PO DAILY 08/17/21 08/26/21 History INSULIN ASPART (NovoLOG) [NovoLOG 20 unit SQ AC-TID 08/17/21 08/26/21 History (formulary)] Insulin Detemir [Levemir Flextouch 17 units SQ DAILY 08/17/21 08/26/21 History Pen] Losartan [Cozaar] 50 mg PO DAILY 08/17/21 08/26/21 History Oxymetazoline 0.05% Nasl [place] 2 spray EA NOSTRIL BID PRN 08/17/21 08/26/21 History [Afrin 0.05% Nasal [place]] Spironolactone 25 mg PO DAILY 08/17/21 08/26/21 History Umeclidinium Brm/Vilanterol Tr 1 puff INHALATION RT-DAILY 08/17/21 08/26/21 History [Anoro Ellipta 62.5-25 Mcg INH] amLODIPine [Norvasc] 5 mg PO DAILY 08/17/21 08/26/21 History Melatonin 5 mg PO HS PRN #14 tablet 08/19/21 08/26/21 Rx Sertraline [Zoloft] 25 mg PO DAILY 14 Days #14 tab 08/19/21 08/26/21 Rx Gabapentin [Neurontin] 100 mg PO BID #60 cap 08/27/21 Rx Allergies Allergy/AdvReac Type Severity Reaction Status Date / Time No Known Allergies Allergy Verified 08/26/21 13:44 Surgical - Exam Vital Signs Temp Pulse Resp BP Pulse Ox 97.7 F 61 18 88/64 98 08/26/21 11:54 08/26/21 11:54 08/26/21 11:54 08/26/21 11:54 08/26/21 11:54 Gen. is a thin elderly male in no acute distress. HEENT is normocephalic, atraumatic, sebaceous cyst at the forehead, does not make eye contact. Heart appears regular. Lungs diminished with expiratory wheeze. Abdomen is flat. Soft, nontender and nondistended. Extremities no clubbing, cyanosis or edema. Palpable radial bilaterally (He does not have an appreciable femoral, popliteal or pedal pulses. Motor sensory intact in his feet. Normal mood. flattened affectt. Cranial nerves II through XII grossly intact Results Venous Dopplers reviewed - Labs 08/26/21 12:38 08/26/21 12:38 Abnormal Lab Results - Last 24 Hours (Table) 08/26/21 08/27/21 08/27/21 Range/Units 12:38 00:59 11:36 POC Glucose (mg/dL) 138 H 273 H (75-99) mg/dL HDL Cholesterol 70.10 H (40.00-60.00) mg/dL 08/27/21 08/27/21 Range/Units 16:26 19:51 POC Glucose (mg/dL) 109 H 215 H (75-99) mg/dL HDL Cholesterol (40.00-60.00) mg/dL Diabetes panel 08/26/21 Range/Units 12:38 Triglycerides 67.80 (0.00-149.00) mg/dL HDL Cholesterol 70.10 H (40.00-60.00) mg/dL Assessment and Plan Assessment: [place] 3 peripheral arterial disease History of tobacco abuse Severe coronary artery disease High risk for MVR/CABG Plan: Had a discussion with the patient regarding a plan going forward. Plan to obtain arterial images with ABIs. At this time though he has severe cardiac disease and is high risk for any procedure. We will initially evaluate his arterial flow in his extremities to see if there is an endovascular approach and may be amenable after he is able to undergo any sort of cardiac evaluation and helpful intervention. We will obtain the images and plan to follow-up as an outpatient for further discussion
[2021-08-28 06:07] LABS: Glucose,Whole Blood 224 mg/dL (75-99)
[2021-08-28 06:57] LABS: Glucose,Whole Blood 152 mg/dL (75-99)
[2021-08-28] MEDS: INSULIN ASPART (NovoLOG) 100 UNIT/ML VIAL SQ SCH ×4 (07:05→12:59)
[2021-08-28] MEDS: LOSARTAN 50 MG TAB PO SCH (08:27)
[2021-08-28] MEDS: SPIRONOLACTONE 25 MG TAB PO SCH (08:27)
[2021-08-28] MEDS: SERTRALINE 25 MG TAB PO SCH (08:27)
[2021-08-28] MEDS: CLOPIDOGREL 75 MG TAB PO SCH (08:27)
[2021-08-28] MEDS: amLODIPine 5 MG TAB PO SCH (08:27)
[2021-08-28] MEDS: FUROSEMIDE 40 MG TAB PO SCH (08:27)
[2021-08-28] MEDS: carvediloL 12.5 MG TAB PO SCH (08:27)
[2021-08-28] MEDS: HEPARIN SODIUM,PORCINE/PF 5,000 UNIT/0.5 ML SYRINGE SQ SCH (08:27)
[2021-08-28] MEDS: GABAPENTIN 100 MG CAP PO SCH (08:28)
[2021-08-28] MEDS: INSULIN DETEMIR (LEVEMIR) 100 UNIT/ML SYR SQ SCH (08:28)
[2021-08-28 08:38] VITALS: PULSE 60
--- NOTE | 2021-08-28 08:51 | P.CNOR ---
History of Present Illness - [facility] Consult date: 08/28/21 Requesting physician: Fransico E Lisa Consult reason: low back pain (Low back pain and generalized lower extremity we akness) History of present illness: Patient is very pleasant 75-year-old male who is seen and examined at bedside in regards to his lumbar spine. Consultation was placed and the patient was experiencing some low back pain. He also admits to some generalized weakness in the lower extremities with a pins and needle sensation over his anterior thighs radiating down the lower extremities. He states since his admittance to the hospital his low back pain has improved. He is not currently experiencing any significant low back pain. He does admit to weakness in his legs. He is planning for discharge to a rehabilitation facility today. He denies any injuries. He denies surgery to his lumbar spine previously. During his admittance to the hospital he is been seen and examined by multiple other medical providers for further treatment evaluation. He was experiencing some chest pain as well as leg pain. Vascular surgery is currently planning for arterial imaging with ABIs. Patient has a medical history which includes heart failure, COPD, diabetes mellitus, hyperlipidemia, hypertension, renal disease, myocardial infarction, peripheral arterial disease with claudication, history of tobacco use, and history of cancer. Past Medical History Past Medical History: Cancer, Chest Pain / Angina, Heart Failure, COPD, Diabetes Mellitus, Eye Disorder, Hyperlipidemia, Hypertension, Myocardial Infarction (MO), Myocardial Infarction (non Q-wave), Osteoarthritis (OA), Prostate Disorder, Renal Disease Additional Past Medical History / Comment(s): "Needs Valve replacement."-Severe mitral vavle reguritation, Systolic HF, Ischemic cardiomyopathy, LBBB, Suicidal ideations, HX PROSTATE CANCER 30 yrs ago, BELLS PALSY, GLAUCOMA, SHORT TERM MEMORY LOSS. Lost 23 lbs recently and continues with decreased appetite. Hx CoVid December 2019. Insomnia. Chronic Hepatitis C, Stage 3 kidney disease Last Myocardial Infarction Date:: UNK History of Any Multi-Drug Resistant Organisms: None Reported Past Surgical History: Heart Catheterization, Joint Replacement, Prostate Surgery Additional Past Surgical History / Comment(s): Left hip replacement. Past Anesthesia/Blood Transfusion Reactions: No Reported Reaction Past Psychological History: No Psychological Hx Reported Smoking Status: Former smoker Past Alcohol Use History: Occasional Additional Past Alcohol Use History / Comment(s): Quit smoking 2 yrs ago, smoked 51 yrs. Past Drug Use History: Marijuana Additional Drug Use History / Comment(s): Hasn't used Marijuana for 2 yrs ago. - Past Family History Mother History Unknown: Yes Medications and Allergies Home Medications Medication Instructions Recorded Confirmed Type Aspirin 81 mg PO DAILY 05/15/14 08/26/21 History Atorvastatin Calcium [Lipitor] 40 mg PO HS 05/15/14 08/26/21 History Clopidogrel [Plavix] 75 mg PO DAILY 05/15/14 08/26/21 History Ezetimibe [Zetia] 10 mg PO HS 07/25/20 08/26/21 History hydrALAZINE HCL [Apresoline] 100 mg PO TID 07/25/20 08/26/21 History Albuterol Inhaler [Ventolin Hfa 2 puff INHALATION RT-Q4H PRN 08/17/21 08/26/21 History Inhaler] Carvedilol [Coreg] 12.5 mg PO BID 08/17/21 08/26/21 History Furosemide [Lasix] 40 mg PO DAILY 08/17/21 08/26/21 History INSULIN ASPART (NovoLOG) [NovoLOG 20 unit SQ AC-TID 08/17/21 08/26/21 History (formulary)] Insulin Detemir [Levemir Flextouch 17 units SQ DAILY 08/17/21 08/26/21 History Pen] Losartan [Cozaar] 50 mg PO DAILY 08/17/21 08/26/21 History Oxymetazoline 0.05% Nasl [place] 2 spray EA NOSTRIL BID PRN 08/17/21 08/26/21 History [Afrin 0.05% Nasal [place]] Spironolactone 25 mg PO DAILY 08/17/21 08/26/21 History Umeclidinium Brm/Vilanterol Tr 1 puff INHALATION RT-DAILY 08/17/21 08/26/21 History [Anoro Ellipta 62.5-25 Mcg INH] amLODIPine [Norvasc] 5 mg PO DAILY 08/17/21 08/26/21 History Melatonin 5 mg PO HS PRN #14 tablet 08/19/21 08/26/21 Rx Sertraline [Zoloft] 25 mg PO DAILY 14 Days #14 tab 08/19/21 08/26/21 Rx Gabapentin [Neurontin] 100 mg PO BID #60 cap 08/27/21 Rx Allergies Allergy/AdvReac Type Severity Reaction Status Date / Time No Known Allergies Allergy Verified 08/26/21 13:44 Physical Examination Physical exam: Patient is awake, alert, and oriented 3 Vital signs stable Good chest excursion with deep inspiration and expiration Abdomen soft nontender Examination of lumbar spine reveals skin is intact with no abrasions, lacerations, or bruises; no erythema, purulence or signs of infection Dorsiflexion, plantarflexion, and extensor hallucis longus positive sustained bilaterally Patient does have generalized weakness bilateral lower extremities; difficulty with lifting legs off the bed independently bilaterally Patellar reflex 1+ bilaterally and Achilles reflexes 0+ bilaterally No lower extremity hyperreflexia bilaterally Straight leg test negative bilateral lower extremities Negative Lasegue's test bilaterally No signs or symptoms of DVT; no calf pain No pain with internal and external rotation of the hips bilaterally Neurovascularly intact Results Pertinent studies: X-rays of the lumbar spine taken on 08/26/2021: Overall alignment is adequately maintained; no significant degenerative disc disease; facet spondylosis of the lumbar spine; no evidence of spondylolisthesis; bone demineralization - Labs Labs: Abnormal Lab Results - Last 24 Hours (Table) 08/26/21 08/27/21 08/27/21 Range/Units 12:38 11:36 16:26 POC Glucose (mg/dL) 273 H 109 H (75-99) mg/dL HDL Cholesterol 70.10 H (40.00-60.00) mg/dL 08/27/21 08/28/21 08/28/21 Range/Units 19:51 06:05 06:55 POC Glucose (mg/dL) 215 H 224 H 152 H (75-99) mg/dL HDL Cholesterol (40.00-60.00) mg/dL H & H 08/26/21 Range/Units 12:38 Hgb 11.1 L (13.0-17.5) gm/dL Hct 34.3 L (39.0-53.0) % Coagulation 08/26/21 Range/Units 12:38 INR 1.1 (<1.2) Result Diagrams: 08/26/21 12:38 08/26/21 12:38 Assessment and Plan Assessment: Assessment: Low back pain Generalized lower extremity weakness Bilateral lower extremity radiculopathy Chest pain Heart failure COPD Diabetes mellitus Hypertension Hyperlipidemia Renal disease History myocardial infarction Peripheral arterial disease with claudication History of tobacco use History of cancer (1) Low back pain Current Visit: Yes Status: Acute Code(s): M54.50 - LOW BACK PAIN, UNSPECIFIED SNOMED Code(s): 712409381 (2) Lumbar spondylosis Current Visit: Yes Status: Acute Code(s): M47.816 - SPONDYLOSIS W/O MYELOPATHY OR RADICULOPATHY, LUMBAR REGION SNOMED Code(s): 825763450 (3) Lower extremity weakness Current Visit: Yes Status: Acute Code(s): R29.898 - OT SYMPTOMS AND SIGNS INVOLVING THE MUSCULOSKELETAL SYSTEM SNOMED Code(s): 477359454 (4) Radiculopathy with lower extremity symptoms Current Visit: Yes Status: Acute Code(s): M54.10 - RADICULOPATHY, SITE UNSPECIFIED SNOMED Code(s): 15674551 (5) COPD (chronic obstructive pulmonary disease) Current Visit: Yes Status: Acute Code(s): J44.9 - CHRONIC OBSTRUCTIVE PULMONARY DISEASE, UNSPECIFIED SNOMED Code(s): 48311171 (6) Hypertension Current Visit: Yes Status: Acute Code(s): I10 - ESSENTIAL (PRIMARY) HYPERTENSION SNOMED Code(s): 92232554 (7) Renal disease Current Visit: Yes Status: Acute Code(s): N28.9 - DISORDER OF KIDNEY AND URETER, UNSPECIFIED SNOMED Code(s): 06994486 (8) History of myocardial infarction Current Visit: Yes Status: Acute Code(s): I25.2 - OLD MYOCARDIAL INFARCTION SNOMED Code(s): 837026407 (9) History of cancer Current Visit: Yes Status: Acute Code(s): Z85.9 - PERSONAL HISTORY OF MALIGNANT NEOPLASM, UNSPECIFIED SNOMED Code(s): 013076102 (10) History of tobacco use Current Visit: Yes Status: Acute Code(s): Z87.891 - PERSONAL HISTORY OF NICOTINE DEPENDENCE SNOMED Code(s): 004182500 (11) Peripheral arterial disease Current Visit: Yes Status: Acute Code(s): I73.9 - PERIPHERAL VASCULAR DISEASE, UNSPECIFIED SNOMED Code(s): 174572161 (12) Chest pain Current Visit: Yes Status: Acute Code(s): R07.9 - CHEST PAIN, UNSPECIFIED SNOMED Code(s): 38685090 (13) Congestive heart failure Current Visit: No Status: Acute Code(s): I50.9 - HEART FAILURE, UNSPECIFIED SNOMED Code(s): 13797540 (14) Diabetes Current Visit: No Status: Acute Code(s): E11.9 - TYPE 2 DIABETES MELLITUS WITHOUT COMPLICATIONS SNOMED Code(s): 25192329 (15) Hyperlipemia Current Visit: No Status: Acute Code(s): E78.5 - HYPERLIPIDEMIA, UNSPECIFIED SNOMED Code(s): 81875674 Plan: Plan: 1. After reviewing of imaging, physical examination of the patient, and further discussion with the patient, we will currently plan to proceed forward with conservative treatment in regards to his lumbar spine. Patient states over the past 4-5 months he has had increased generalized weakness of his lower extremities with some numbness and tingling with pain sensation over the anterior thighs radiating down the bilateral lower extremities. He denies any specific injury. He was experiencing some increased low back pain during his admission to the hospital. This has improved. He feels his low back pain is well-controlled. He does feel at this time he would like to work through further treatment through a rehabilitation facility. If his lower extremity strength and radiculopathy does not improve he would be willing to have further imaging regard to his lumbar spine. He is planned for discharge to a rehabilitation facility today if cleared by multiple other medical providers. At this time, patient is cleared for discharge from orthopedic spine standpoint. We did discuss we'll plan to have him follow-up in approximately 3 weeks for further evaluation the outpatient setting. We did discuss if his symptoms are not improving we may plan to obtain MRI imaging of the lumbar spine. Patient feels this is a good plan of care.Patient may follow-up with Matt Ayoub PA-C or Dr. Shakir Champion at [facility] in 3 weeks following discharge. 2. Patient will continue be seen examined by multiple other medical providers including medicine, vascular surgery, and cardiology Time with Patient: Greater than 30
[2021-08-28] MEDS ORDERED: ASPIRIN 81 MG PO SCH (09:00)
[2021-08-28 11:37] LABS: Glucose,Whole Blood 168 mg/dL (75-99)
[2021-08-28 13:06] VITALS: BP 124/58; RESP 16; TEMP 98.1
--- NOTE | 2021-08-29 00:48 | P.PN ---
Subjective This is a pleasant 75 years old male with past medical history of Heart Failure, COPD, Diabetes Mellitus, Hyperlipidemia, Hypertension,Osteoarthritis , Prostate Disorder, Renal Disease, Severe mitral vavle reguritation, Systolic HF, Ischemic cardiomyopathy, LBBB, Suicidal ideations, HX PROSTATE CANCER 30 yrs ago status post surgery, BELLS PALSY, GLAUCOMA, SHORT TERM MEMORY LOSS. Hx CoVid December 2019. Insomnia. Chronic Hepatitis C, Stage 3 kidney disease Patient presents because of chest pain and back pain with walking difficulty. Patient says that he has left-sided chest pain for the last 2 days, nonradiating about 7-8/10 in severity, with no dyspnea or coughing. No dizziness. Also has been complaining of from low back pain with difficulty walking for about a month with little tingling in both legs. He denies smoking, alcohol or illicit drugs He feels little depressed but he denies suicidal ideation Vitals looks stable Labs reviewed including unremarkable CBC, BMP and liver enzymes. Creatinine is 1.8 which is at baseline 1.8-2.1. Troponin is elevated 0.04 but it's chronically elevated since 08/17/2021 at 0.17-0.19 Echocardiogram earlier this month 08/18: Ejection fraction 30-35% with wall motion hypokinesia and severe mitral regurgitation Chest x-ray: No acute process. EKG showing AV sequential or dual chamber pacemaker 08/27/2021 Patient today he is doing well. No chest pain. He still complaining of from ongoing low back pain and x-ray showing spondylosis with facet arthropathy of the lumbar spine. Patient has been evaluated by certified surgical technician who cleared him for discharge. Patient hemodynamically stable. We're going to consult orthopedic team which is still pending Doppler of the lower extremity was negative for DVT but shows some leg lesion and the arteries, so vascular surgery was consulted as well Sugar is controlled and Levemir 5 units compared to 17 units at home. Patient informed with this plan and he agrees Possible discharge in 24 hours once cleared by vascular surgery and orthopedic team PT/OT evaluated the patient and recommended home. Objective - Vital Signs Vital signs: Vital Signs Temp 97.6 F 08/27/21 08:00 Pulse 61 08/27/21 08:00 Resp 16 08/27/21 08:00 BP 136/76 08/27/21 08:00 Pulse Ox 99 08/27/21 08:00 Intake & Output 08/26/21 08/27/21 08/27/21 18:59 06:59 18:59 Intake Total 480 0 Output Total 100 Balance 380 0 Weight 68.039 kg 66.9 kg Intake: Oral 480 0 Output: Urine 100 - Exam GENERAL: The patient is alert and oriented x3, not in any acute distress. Well developed, well nourished. HEENT: Pupils are round and equally reacting to light. EOMI. No scleral icterus. No conjunctival pallor. Normocephalic, atraumatic. No pharyngeal erythema. No thyromegaly. CARDIOVASCULAR: S1 and S2 present. No murmurs, rubs, or gallops. PULMONARY: Chest is clear to auscultation, no wheezing or crackles. ABDOMEN: Soft, nontender, nondistended, normoactive bowel sounds. No palpable organomegaly. MUSCULOSKELETAL: No joint swelling or deformity. EXTREMITIES: No cyanosis, clubbing, or pedal edema. NEUROLOGICAL: Gross neurological examination did not reveal any focal deficits. SKIN: No rashes. no petechiae. - Labs CBC & Chem 7: 08/26/21 12:38 08/26/21 12:38 Labs: Abnormal Lab Results - Last 24 Hours (Table) 08/26/21 08/26/21 08/26/21 Range/Units 12:38 12:38 12:38 RBC 3.98 L (4.30-5.90) m/uL Hgb 11.1 L (13.0-17.5) gm/dL Hct 34.3 L (39.0-53.0) % RDW 15.9 H (11.5-15.5) % Sodium 136 L (137-145) mmol/L Chloride 108 H (98-107) mmol/L Carbon Dioxide 20 L (22-30) mmol/L BUN 65 H (9-20) mg/dL Creatinine 1.84 H (0.66-1.25) mg/dL Glucose 136 H (74-99) mg/dL POC Glucose (mg/dL) (75-99) mg/dL Troponin I 0.042 H* (0.000-0.034) ng/mL 08/27/21 Range/Units 00:59 RBC (4.30-5.90) m/uL Hgb (13.0-17.5) gm/dL Hct (39.0-53.0) % RDW (11.5-15.5) % Sodium (137-145) mmol/L Chloride (98-107) mmol/L Carbon Dioxide (22-30) mmol/L BUN (9-20) mg/dL Creatinine (0.66-1.25) mg/dL Glucose (74-99) mg/dL POC Glucose (mg/dL) 138 H (75-99) mg/dL Troponin I (0.000-0.034) ng/mL Assessment and Plan Assessment: Chest pain, soft and certified surgical technician. The patient Chronically elevated troponin Chronic low back pain with gait difficulty Possible peripheral vascular disease Chronic systolic CHF and ischemic cardiomyopathy History of coronary artery disease Diabetes mellitus Hypertension Hyperlipidemia History of osteoarthritis History of prostate cancer History of severe mitral valve regurgitation History of left bundle-branch block History of suicidal ideation History of Szymanski's palsy Glaucoma History of short-term memory loss History of Covid infection on 12/2019 Chronic hepatitis C Chronic kidney disease stage III Plan: This is a pleasant 75 years old male who presents with chest pain Continue with serial troponin Continue with aspirin Cardiology consult consult vascular surgery Possible consult orthopedic team for his low back pain Labs and medication were reviewed.. Continue same treatment. Continue with symptomatic treatment. Resume home medication. Monitor lytes and vitals. DVT and GI prophylaxis. Further recommendations depends on the clinical course of the patient DVT prophylaxis: Subcutaneous heparin GI Prophylaxis: Pepcid Prognosis is guarded
--- NOTE | 2021-08-29 00:53 | P.DS ---
Providers Date of admission: 08/26/21 14:18 Attending physician: Fransico Gonzalez MD Consults: 08/26/21 14:18 Consult Physician Urgent Consulting Provider: Oumar Mejia Consult Reason/Comments: chest pain Do you want consulting provider notified?: Yes 08/26/21 15:04 Consult Physician Urgent Consulting Provider: Rodolfo Champion Consult Reason/Comments: low back pain , with walking diff Do you want consulting provider notified?: Yes 08/27/21 14:07 Consult Physician Urgent Consulting Provider: Trinity Torres Consult Reason/Comments: significant plaque in lower ext arteries (on doppler) Do you want consulting provider notified?: Yes Primary care physician: [facility] Course: Diagnoses: Chest pain, soft and able bodied tankerman. The patient Chronically elevated troponin Chronic low back pain with gait difficulty Possible peripheral vascular disease Chronic systolic CHF and ischemic cardiomyopathy History of coronary artery disease Diabetes mellitus Hypertension Hyperlipidemia History of osteoarthritis History of prostate cancer History of severe mitral valve regurgitation History of left bundle-branch block History of suicidal ideation History of Szymanski's palsy Glaucoma History of short-term memory loss History of Covid infection on 12/2019 Chronic hepatitis C Chronic kidney disease stage III Hospital course: This is a pleasant 75 years old male with past medical history of Heart Failure, COPD, Diabetes Mellitus, Hyperlipidemia, Hypertension,Osteoarthritis , Prostate Disorder, Renal Disease, Severe mitral vavle reguritation, Systolic HF, Ischemic cardiomyopathy, LBBB, Suicidal ideations, HX PROSTATE CANCER 30 yrs ago status post surgery, BELLS PALSY, GLAUCOMA, SHORT TERM MEMORY LOSS. Hx CoVid December 2019. Insomnia. Chronic Hepatitis C, Stage 3 kidney disease Patient presents because of chest pain and back pain with walking difficulty. Patient says that he has left-sided chest pain for the last 2 days, patient has been evaluated by able bodied tankerman. His chest pain resolved completely and 0/10 today. Patient can be discharged and follow-up with Dr. Morfin and Dr. Spann at [facility]. low back pain and x-ray showing spondylosis with facet arthropathy of the lumbar spine. Orthopedic team evaluated the patient and recommended outpatient follow-up and patient agrees with the appointments made for him with Dr. Champion on 09/11 stating he will follow-up Doppler of the lower extremity was negative for DVT but shows some leg lesion and the arteries, so vascular surgery was consulted as well. Dr. Pearson evaluated the patient and cleared the patient for discharge the staff with recommendation for outpatient follow-up. I talked to the patient and he agrees to follow up with Dr. Torres in 1-2 weeks and to call her and make appointment for himself. Physical therapy did not recommend rehab as he was doing well. Patient was cleared for discharge by all consultants able bodied tankerman, vascular surgery and orthopedic team's. Patient informed with lower dose of Levemir to 7 units at bedtime. He agrees. Also he told me his glucometer and he checks his sugar 3-4 times per day. See discharge instructions Problems and management plan were discussed with the patient and he verbalized understanding and acceptance Patient was found stable and can be discharged home however he needs follow-up as an outpatient. Patient was instructed to follow up with PCP Dr. Cook within one week and patient agrees with the appointments made for him with Dr. Cook on 09/02. Also patient was instructed to follow up with orthopedic, vascular surgery and cardiology as above. Physical exam Gen: patient is a AAOx3, no distress CVS: S1-S2, RRR, no murmur Lungs: B/L CTA, no wheezing Abdomen: soft, no distention, no tenderness, positive bowel sounds Extremity: no leg edema or induration Time spent more than 35 minutes Patient Condition at Discharge: Fair Plan - Discharge Summary New Discharge Prescriptions: New Gabapentin [Neurontin] 100 mg PO BID #60 cap Continue Clopidogrel [Plavix] 75 mg PO DAILY Atorvastatin Calcium [Lipitor] 40 mg PO HS Aspirin 81 mg PO DAILY Ezetimibe [Zetia] 10 mg PO HS hydrALAZINE HCL [Apresoline] 100 mg PO TID Albuterol Inhaler [Ventolin Hfa Inhaler] 2 puff INHALATION RT-Q4H PRN PRN Reason: Shortness Of Breath amLODIPine [Norvasc] 5 mg PO DAILY INSULIN ASPART (NovoLOG) [NovoLOG (formulary)] 20 unit SQ AC-TID Losartan [Cozaar] 50 mg PO DAILY Umeclidinium Brm/Vilanterol Tr [Anoro Ellipta 62.5-25 Mcg INH] 1 puff INHALATION RT-DAILY Melatonin 5 mg PO HS PRN #14 tablet PRN Reason: Insomnia Sertraline [Zoloft] 25 mg PO DAILY 14 Days #14 tab Carvedilol [Coreg] 12.5 mg PO BID Furosemide [Lasix] 40 mg PO DAILY Oxymetazoline 0.05% Nasl [place] [Afrin 0.05% Nasal [place]] 2 spray EA NOSTRIL BID PRN PRN Reason: Congestion Spironolactone 25 mg PO DAILY Changed Insulin Detemir [Levemir Flextouch Pen] 7 units SQ DAILY #10 ml Discharge Medication List Aspirin 81 mg PO DAILY 05/15/14 [History] Atorvastatin Calcium [Lipitor] 40 mg PO HS 05/15/14 [History] Clopidogrel [Plavix] 75 mg PO DAILY 05/15/14 [History] Ezetimibe [Zetia] 10 mg PO HS 07/25/20 [History] hydrALAZINE HCL [Apresoline] 100 mg PO TID 07/25/20 [History] Albuterol Inhaler [Ventolin Hfa Inhaler] 2 puff INHALATION RT-Q4H PRN 08/17/21 [History] Carvedilol [Coreg] 12.5 mg PO BID 08/17/21 [History] Furosemide [Lasix] 40 mg PO DAILY 08/17/21 [History] INSULIN ASPART (NovoLOG) [NovoLOG (formulary)] 20 unit SQ AC-TID 08/17/21 [History] Losartan [Cozaar] 50 mg PO DAILY 08/17/21 [History] Oxymetazoline 0.05% Nasl [place] [Afrin 0.05% Nasal [place]] 2 spray EA NOSTRIL BID PRN 08/17/21 [History] Spironolactone 25 mg PO DAILY 08/17/21 [History] Umeclidinium Brm/Vilanterol Tr [Anoro Ellipta 62.5-25 Mcg INH] 1 puff INHALATION RT-DAILY 08/17/21 [History] amLODIPine [Norvasc] 5 mg PO DAILY 08/17/21 [History] Melatonin 5 mg PO HS PRN #14 tablet 08/19/21 [Rx] Sertraline [Zoloft] 25 mg PO DAILY 14 Days #14 tab 08/19/21 [Rx] Gabapentin [Neurontin] 100 mg PO BID #60 cap 08/27/21 [Rx] Insulin Detemir [Levemir Flextouch Pen] 7 units SQ DAILY #10 ml 08/28/21 [Rx] Follow up Appointment(s)/Referral(s): Ashu Hussein MD [STAFF PHYSICIAN] - 09/14/21 10:00 am (Tuesday) Rodolfo Champion DO [Doctor of Osteopathic Medicine] - 09/11/21 2:30 am ( ) Trinity Torres DO [STAFF PHYSICIAN] - 1 Week (Patient to schedule appointment, as the office is closed at time of discharge.) Mango Cook DO [Primary Care Provider] - 09/02/21 10:30 am Patient Instructions/Handouts: Chest Pain (DC) Activity/Diet/Wound Care/Special Instructions: Please follow up with Dr Spann and Dr. Morfin in 1-2 weeks Heart healthy diet Activity is restricted until you see your doctors. We recommend to check your glucose 4 times a day before each meal and at bedtime. Given the results in a log book and bring it to your doctor on your appointment date If your glucose is less than 70 or more than 400 then call 911 and come to emergency room Discharge Disposition: HOME SELF-CARE
--- NOTE | 2021-09-02 10:47 | P.ARTDOP ---
Arterial Doppler LOWER EXTREMITY ARTERIAL DOPPLER: DATE OF SERVICE: 08/28/2021 Reason for study: Bilateral foot pain. Doppler waveforms: Atypical at both femoral levels and monophasic below with digital readings flat line. Pulse volume recording: []. Pressure gradients: Above the low thigh level. Ankle-brachial indices: 0.2 on the right and 0.27 on the left. Toe brachial indices: [] on the right, [] on the left Impression: Severe bilateral iliofemoral occlusive disease. Vascular specialty assessment recommended.
== END 2021-08-28 16:55 | disposition home or self-care (01) ==
LOC: EC 11:51 → 6NMEDSUR 14:18 → 3SCARD 15:05
PROVIDERS: ADMIT Internal Medicine; ATTEND Internal Medicine
DX: R07.89 Other chest pain (principal); I25.10 Atherosclerotic heart disease of native coronary artery without angina pectoris; I70.213 Atherosclerosis of native arteries of extremities with intermittent claudication, bilateral legs; M47.26 Other spondylosis with radiculopathy, lumbar region; I13.0 Hypertensive heart and chronic kidney disease with heart failure and stage 1 through stage 4 chronic kidney disease, or unspecified chronic kidney disease; N18.30 Chronic kidney disease, stage 3 unspecified; E11.51 Type 2 diabetes mellitus with diabetic peripheral angiopathy without gangrene; E11.22 Type 2 diabetes mellitus with diabetic chronic kidney disease; I50.22 Chronic systolic (congestive) heart failure; I08.1 Rheumatic disorders of both mitral and tricuspid valves; I70.0 Atherosclerosis of aorta; I25.5 Ischemic cardiomyopathy; I44.7 Left bundle-branch block, unspecified; G89.29 Other chronic pain; J44.9 Chronic obstructive pulmonary disease, unspecified; E78.5 Hyperlipidemia, unspecified; I25.2 Old myocardial infarction; M19.90 Unspecified osteoarthritis, unspecified site; B18.2 Chronic viral hepatitis C; H40.9 Unspecified glaucoma; R26.2 Difficulty in walking, not elsewhere classified; R41.3 Other amnesia; G47.00 Insomnia, unspecified; R79.89 Other specified abnormal findings of blood chemistry; Z20.822 Contact with and (suspected) exposure to COVID-19; Z79.82 Long term (current) use of aspirin; Z79.02 Long term (current) use of antithrombotics/antiplatelets; Z79.4 Long term (current) use of insulin; Z79.899 Other long term (current) drug therapy; Z86.16 Personal history of COVID-19; Z85.46 Personal history of malignant neoplasm of prostate; Z96.642 Presence of left artificial hip joint; Z86.69 Personal history of other diseases of the nervous system and sense organs; Z86.59 Personal history of other mental and behavioral disorders; Z95.0 Presence of cardiac pacemaker; Z87.891 Personal history of nicotine dependence; Z98.890 Other specified postprocedural states
CPT/HCPCS: 96372 ×2; 96375; 96374; 99285; 36415; 93005; 97161; 97165; 80061; 80053; 83735; 84484; 85025; 85610; 85730; 87635; 72100; 71046; 93923; 93970; G0378 ×4; J2270; J1644 ×2

== ENCOUNTER 2021-09-24 14:03 | Inpatient (IN) | payer MEDICARE ==
[2021-09-24] MEDS ORDERED: ASPIRIN 81 MG PO STA (15:10)
[2021-09-24] MEDS ORDERED: NITROGLYCERIN OINT 1 INCH/GM PACKET TOPICAL STA (15:10)
--- NOTE | 2021-09-24 15:15 | ED ---
General Adult HPI - General Chief complaint: Dizziness Stated complaint: Dizziness,Weakness Time Seen by Provider: 09/24/21 14:35 Source: patient, RN notes reviewed, old records reviewed Mode of arrival: wheelchair Limitations: no limitations - History of Present Illness Initial comments: This is a 75-year-old male presents emergency department with past medical history of diabetes and high blood pressure. Patient states she's also had a pacemaker placed and had 2 stents placed at [facility]. Patient comes in today because he says this morning he had no episode where he almost passed out and he had left-sided chest pain lasts 20 minutes along with that he was having some shortness of breath. Patient states he went to try to get up after the episode he was so weak he was difficult to stand. Patient states he continues to feel short of breath lightheaded and have overall generalized weakness. Patient denies any fever but states he has had some chills recently and has had a cough recently. Patient denies any abdominal pain patient denies nausea vomiting diarrhea. Patient states went to the legs or calf tenderness. - Related Data Home Medications Medication Instructions Recorded Confirmed Aspirin 81 mg PO DAILY 05/15/14 09/24/21 Atorvastatin Calcium [Lipitor] 40 mg PO HS 05/15/14 09/24/21 Clopidogrel [Plavix] 75 mg PO DAILY 05/15/14 09/24/21 Ezetimibe [Zetia] 10 mg PO HS 07/25/20 09/24/21 hydrALAZINE HCL [Apresoline] 100 mg PO TID 07/25/20 09/24/21 Albuterol Inhaler [Ventolin Hfa 2 puff INHALATION RT-Q4H PRN 08/17/21 09/24/21 Inhaler] Carvedilol [Coreg] 12.5 mg PO BID 08/17/21 09/24/21 Furosemide [Lasix] 40 mg PO DAILY 08/17/21 09/24/21 INSULIN ASPART (NovoLOG) [NovoLOG 5 unit SQ AC-TID 08/17/21 09/24/21 (formulary)] Losartan [Cozaar] 50 mg PO DAILY 08/17/21 09/24/21 Oxymetazoline 0.05% Nasl [place] 2 spray EA NOSTRIL BID PRN 08/17/21 09/24/21 [Afrin 0.05% Nasal [place]] Spironolactone 25 mg PO DAILY 08/17/21 09/24/21 Umeclidinium Brm/Vilanterol Tr 1 puff INHALATION RT-DAILY 08/17/21 09/24/21 [Anoro Ellipta 62.5-25 Mcg INH] amLODIPine [Norvasc] 5 mg PO DAILY 08/17/21 09/24/21 Insulin Detemir [Levemir Flextouch 5 units SQ DAILY 09/24/21 09/24/21 Pen] QUEtiapine [SEROquel] 25 mg PO HS 09/24/21 09/24/21 Previous Rx's Medication Instructions Recorded Melatonin 5 mg PO HS PRN #14 tablet 08/19/21 Sertraline [Zoloft] 25 mg PO DAILY 14 Days #14 tab 08/19/21 Gabapentin [Neurontin] 100 mg PO BID #60 cap 08/27/21 Allergies Allergy/AdvReac Type Severity Reaction Status Date / Time No Known Allergies Allergy Verified 09/24/21 16:11 Review of Systems ROS Statement: Those systems with pertinent positive or pertinent negative responses have been documented in the HPI. ROS Other: All systems not noted in ROS Statement are negative. Past Medical History Past Medical History: Cancer, Chest Pain / Angina, Heart Failure, COPD, Diabetes Mellitus, Eye Disorder, Hyperlipidemia, Hypertension, Myocardial Infarction (AR), Myocardial Infarction (non Q-wave), Osteoarthritis (OA), Prostate Disorder, Renal Disease Additional Past Medical History / Comment(s): "Needs Valve replacement."-Severe mitral vavle reguritation, Systolic HF, Ischemic cardiomyopathy, LBBB, Suicidal ideations, HX PROSTATE CANCER 30 yrs ago, BELLS PALSY, GLAUCOMA, SHORT TERM MEMORY LOSS. Lost 23 lbs recently and continues with decreased appetite. Hx CoVid December 2019. Insomnia. Chronic Hepatitis C, Stage 3 kidney disease Last Myocardial Infarction Date:: UNK History of Any Multi-Drug Resistant Organisms: None Reported Past Surgical History: Heart Catheterization, Joint Replacement, Prostate Surgery Additional Past Surgical History / Comment(s): Left hip replacement. Past Anesthesia/Blood Transfusion Reactions: No Reported Reaction Past Psychological History: No Psychological Hx Reported Smoking Status: Current every day smoker Past Alcohol Use History: None Reported Past Drug Use History: None Reported, Marijuana - Past Family History Mother History Unknown: Yes General Exam - General Exam Comments Initial Comments: GENERAL: Patient is well-developed and well-nourished. Patient is nontoxic and well- hydrated and is in no acute distress. ENT: Neck is soft and supple. No significant lymphadenopathy is noted. Oropharynx is clear. Moist mucous membranes. Neck has full range of motion without eliciting any pain. EYES: The sclera were anicteric and conjunctiva were pink and moist. Extraocular movements were intact and pupils were equal round and reactive to light. Eyelids were unremarkable. PULMONARY: Unlabored respirations. Good breath sounds bilaterally. No audible rales rhonc hi or wheezing was noted. CARDIOVASCULAR: There is a regular rate and rhythm without any murmurs gallops or rubs. ABDOMEN: Soft and nontender with normal bowel sounds. SKIN: Skin is clear with no lesions or rashes and otherwise unremarkable. NEUROLOGIC: Patient is alert and oriented x3. Cranial nerves II through XII are grossly intact. Motor and sensory are also intact. Normal speech, volume and content. Symmetrical smile. MUSCULOSKELETAL: Normal extremities with adequate strength and full range of motion. No lower extremity swelling or edema. No calf tenderness. LYMPHATICS: No significant lymphadenopathy is noted PSYCHIATRIC: Normal psychiatric evaluation. Limitations: no limitations Course Vital Signs 09/24/21 09/24/21 14:31 15:43 Temperature 98 F Pulse Rate 78 Pulse Rate [ 70 Sitting Car [employer]ental [employer]] Pulse Rate [ 75 Standing Car Rental Manager ] Pulse Rate [ 71 Supine Car [employer]ental Manager] Respiratory 18 Rate Blood Pressure 98/59 Blood Pressure 122/65 [Sitting] Blood Pressure 108/71 [Standing] Blood Pressure 125/93 [Supine] O2 Sat by Pulse 99 99 Oximetry Medical Decision Making - Medical Decision Making EKG shows a paced rhythm at 72 bpm QRS is 124 ID interval is 152 QT interval is 446 QTC is 488. X-ray shows no acute abnormality. I spoke Dr. Koehler he agreed to admit the patient admitted the patient I wrote admitting orders. - Lab Data Result diagrams: 09/24/21 15:32 09/24/21 15:32 Lab Results 09/24/21 09/24/21 09/24/21 Range/Units 15:32 15:32 15:32 WBC 4.1 (3.8-10.6) k/uL RBC 3.89 L (4.30-5.90) m/uL Hgb 10.8 L (13.0-17.5) gm/dL Hct 33.5 L (39.0-53.0) % MCV 86.0 (80.0-100.0) fL MCH 27.8 (25.0-35.0) pg MCHC 32.4 (31.0-37.0) g/dL RDW 16.2 H (11.5-15.5) % Plt Count 139 L (150-450) k/uL MPV 10.2 Neutrophils % 60 % Lymphocytes % 27 % Monocytes % 7 % Eosinophils % 4 % Basophils % 1 % Neutrophils # 2.4 (1.3-7.7) k/uL Lymphocytes # 1.1 (1.0-4.8) k/uL Monocytes # 0.3 (0-1.0) k/uL Eosinophils # 0.1 (0-0.7) k/uL Basophils # 0.0 (0-0.2) k/uL Anisocytosis Slight PT 10.6 (9.0-12.0) sec INR 1.0 (<1.2) APTT 24.7 (22.0-30.0) sec Sodium 137 (137-145) mmol/L Potassium 3.8 (3.5-5.1) mmol/L Chloride 106 (98-107) mmol/L Carbon Dioxide 20 L (22-30) mmol/L Anion Gap 11 mmol/L BUN 30 H (9-20) mg/dL Creatinine 1.53 H (0.66-1.25) mg/dL Est GFR (CKD-EPI)AfAm 51 (>60 ml/min/1.73 sqM) Est GFR (CKD-EPI)NonAf 44 (>60 ml/min/1.73 sqM) Glucose 220 H (74-99) mg/dL Calcium 8.5 (8.4-10.2) mg/dL Magnesium 1.4 L (1.6-2.3) mg/dL Total Bilirubin 0.3 (0.2-1.3) mg/dL AST 37 (17-59) U/L ALT 24 (4-49) U/L Alkaline Phosphatase 55 (38-126) U/L Troponin I (0.000-0.034) ng/mL Total Protein 6.5 (6.3-8.2) g/dL Albumin 3.3 L (3.5-5.0) g/dL 12/16/21 Range/Units 15:32 WBC (3.8-10.6) k/uL RBC (4.30-5.90) m/uL Hgb (13.0-17.5) gm/dL Hct (39.0-53.0) % MCV (80.0-100.0) fL MCH (25.0-35.0) pg MCHC (31.0-37.0) g/dL RDW (11.5-15.5) % Plt Count (150-450) k/uL MPV Neutrophils % % Lymphocytes % % Monocytes % % Eosinophils % % Basophils % % Neutrophils # (1.3-7.7) k/uL Lymphocytes # (1.0-4.8) k/uL Monocytes # (0-1.0) k/uL Eosinophils # (0-0.7) k/uL Basophils # (0-0.2) k/uL Anisocytosis PT (9.0-12.0) sec INR (<1.2) APTT (22.0-30.0) sec Sodium (137-145) mmol/L Potassium (3.5-5.1) mmol/L Chloride (98-107) mmol/L Carbon Dioxide (22-30) mmol/L Anion Gap mmol/L BUN (9-20) mg/dL Creatinine (0.66-1.25) mg/dL Est GFR (CKD-EPI)AfAm (>60 ml/min/1.73 sqM) Est GFR (CKD-EPI)NonAf (>60 ml/min/1.73 sqM) Glucose (74-99) mg/dL Calcium (8.4-10.2) mg/dL Magnesium (1.6-2.3) mg/dL Total Bilirubin (0.2-1.3) mg/dL AST (17-59) U/L ALT (4-49) U/L Alkaline Phosphatase (38-126) U/L Troponin I 0.027 (0.000-0.034) ng/mL Total Protein (6.3-8.2) g/dL Albumin (3.5-5.0) g/dL Disposition Clinical Impression: Chest pain, Near syncope, Generalized weakness Disposition: ADMITTED IP TO THIS [facility] Referrals: Mango Cook DO [Primary Care Provider] - 1-2 days Time of Disposition: 16:37
--- NOTE | 2021-09-24 15:37 | XR ---
EXAMINATION TYPE: XR chest 1V portable DATE OF EXAM: 09/24/2021 COMPARISON: 08/26/2021 HISTORY: Pain TECHNIQUE: Single frontal view of the chest is obtained. FINDINGS: Heart is enlarged and there is cardiac device with interstitial pattern and subsegmental c hanges at the left lung base with small effusion. No pneumothorax. Diffuse osteopenia with arthropath y of the shoulders. IMPRESSION: Cardiomegaly correlate for interstitial edema or interstitial pneumonia.
[2021-09-24 15:52] LABS: Anisocytosis Slight; Basophils % (A) 1 %; Eosinophils # (A) 0.1 k/uL (0-0.7); Eosinophils % (A) 4 %; HCT 33.5 % (39.0-53.0); HGB 10.8 gm/dL (13.0-17.5); Lymphocytes # (A) 1.1 k/uL (1.0-4.8); Lymphocytes % (A) 27 %; MCH 27.8 pg (25.0-35.0); MCHC 32.4 g/dL (31.0-37.0); Mean Platelet Volume 10.2; Monocytes # (A) 0.3 k/uL (0-1.0); Monocytes % (A) 7 %; Neutrophils # (A) 2.4 k/uL (1.3-7.7); Neutrophils % (A) 60 %; Platelet Count 139 k/uL (150-450); RBC 3.89 m/uL (4.30-5.90); RDW 16.2 % (11.5-15.5); WBC 4.1 k/uL (3.8-10.6)
[2021-09-24 16:02] LABS: Partial Thromboplastin Time 24.7 sec (22.0-30.0); Prothrombin Time 10.6 sec (9.0-12.0)
[2021-09-24 16:03] LABS: Albumin 3.3 g/dL (3.5-5.0); Calcium 8.5 mg/dL (8.4-10.2); Magnesium 1.4 mg/dL (1.6-2.3); Potassium 3.8 mmol/L (3.5-5.1); Total Bilirubin 0.3 mg/dL (0.2-1.3); Total Protein 6.5 g/dL (6.3-8.2)
[2021-09-24] MEDS ORDERED: NITROGLYCERIN SL TABS 0.4 MG TAB SUBLINGUAL PRN (16:37)
[2021-09-24] MEDS: MAGNESIUM SULFATE-D5W PMX 1 GM in DEXTROSE/WATER 1 100ML.BAG IVPB SCH ×2 (17:48→19:59)
[2021-09-24] MEDS ORDERED: ALBUTEROL HFA INHALER INHALATION PRN (18:00)
[2021-09-24] MEDS ORDERED: OXYMETAZOLINE 0.05% NASL SPRAY 1 SPRAY BOTTLE EA NOSTRIL PRN (18:00)
--- NOTE | 2021-09-24 18:39 | HP ---
HISTORY AND PHYSICAL DATE OF SERVICE: 09/24/2021. CHIEF COMPLAINTS: Dizziness and chest pain. HISTORY OF PRESENT ILLNESS: This 75-year-old gentleman with a past medical history of chest pain, history of CHF, COPD, diabetes mellitus, type 2, hypertension, hyperlipidemia, being followed by Dr. Mango Cook in the outpatient setting, apparently had recent exercise at the assisted-living facility. The patient felt some central left-sided chest pain that lasted for about 20 minutes and some dizziness and shortness of breath. The patient was also complaining of some numbness and some minimal weakness on exertion and some persistent back pain also. There is no history of any fever, rigors or chills. No history of headache, loss of consciousness, seizures. Patient admitted for further evaluation and treatment. Initial troponin 0.027 at this time. PAST MEDICAL HISTORY: History of chest pain, history of CHF, COPD, diabetes mellitus, type 2, history hypertension, hyperlipidemia, history of myocardial infarction, history of DJD, history of valve replacement, history of cardiac catheterization. MEDICATIONS: Medications prior to admission include Seroquel, oxymetazoline, insulin, albuterol, Norvasc, metolazone, Cozaar, Neurontin, Lasix, Zetia, Plavix. Doses are reviewed. ALLERGIES: NONE. FAMILY HISTORY: History of cancer in the family. SOCIAL HISTORY: History of smoking. Quit smoking about 2 years ago. No history of alcohol intake. Occasional THC previously. REVIEW OF SYSTEMS: ENT: Diminished hearing. Diminished vision. CARDIOVASCULAR SYSTEM: As mentioned earlier. RESPIRATORY SYSTEM: As mentioned earlier. GI: As mentioned earlier. : No dysuria. NERVOUS SYSTEM: No numbness, weakness. ALLERGY/IMMUNOLOGY: No asthma or hay fever. MUSCULOSKELETAL: As mentioned earlier. HEMATOLOGY/ONCOLOGY: No history of anemia. ENDOCRINE: History of diabetes. CONSTITUTIONAL: As mentioned earlier. DERMATOLOGY: Negative. RHEUMATOLOGY: Negative. PSYCHIATRY: As mentioned earlier. PHYSICAL EXAMINATION: Patient alert and oriented x3. The pulse is 70, blood pressure is 120/65. Minimal orthostatic changes. Respirations 18, temperature 98 degrees, pulse ox 99% on room air. HEENT: Conjunctivae normal. Oral mucosa moist. NECK: No jugular venous distention. No carotid bruit. No lymph node enlargement. CARDIOVASCULAR: S1, S2 muffled. Ejection systolic murmur. RESPIRATION: Breath sounds diminished at the bases. A few scattered rhonchi. ABDOMEN: Soft, nontender. LEGS: No edema. No swelling. NERVOUS SYSTEM: No focal deficit. LABS: WBC 4.2, hemoglobin 10.8 and creatinine 1.53. ASSESSMENT: 1. Chest pain, possible unstable angina. 2. Bilateral numbness and weakness, possibly back pain and degenerative joint disease. Rule out spinal canal stenosis. 3. Hypomagnesemia. 4. Increased creatinine with chronic kidney disease, stage 3. 5. Anemia, normocytic anemia of chronic disease. 6. Mild thrombocytopenia. 7. History of coronary artery disease. 8. History of congestive heart failure. 9. Chronic obstructive pulmonary disease. 10.Diabetes mellitus, type 2. 11.Hypertension. 12.Hyperlipidemia. 13.History of myocardial infarction. 14.History of degenerative joint disease. 15.History of prostate disorder. 16.History of severe mitral regurgitation. 17.History of ischemic cardiomyopathy. 18.History of left bundle block. 19.Suicidal ideations. 20.History of prostate cancer. 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 22.History of glaucoma. 23.History of insomnia. 24.History of chronic hepatitis C. 25.History of nicotine dependence. 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 RECOMMENDATIONS AND DISCUSSION: In this 75-year-old gentleman who presented with multiple complex medical issues, we will monitor the patient closely, continue the current medications, continue symptomatic treatment. Otherwise at this time I recommend cardiology consultation. Rule out myocardial infarction. with acute coronary syndrome. I would also recommend a lumbar spine CT scan to rule out the possibility of any lumbar spinal issues. We will obtain evaluation by Dr. Champion also. The patient had an arterial study recently of the lower legs showing severe bilateral iliofemoral occlusive disease. We will recommend a vascular consult also. Guarded prognosis. Further recommendations to follow. MMODL / IJN: [id number] / LETICIA
[2021-09-24] MEDS: NITROGLYCERIN OINT 1 INCH/GM PACKET TOPICAL SCH ×2 (20:00→23:29)
[2021-09-24 21:44] LABS: Glucose,Whole Blood 289 mg/dL (75-99)
[2021-09-24] MEDS: ATORVASTATIN 40 MG TAB PO SCH (22:17)
[2021-09-24] MEDS: carvediloL 12.5 MG TAB PO SCH (22:17)
[2021-09-24] MEDS: GABAPENTIN 100 MG CAP PO SCH (22:17)
[2021-09-24] MEDS: EZETIMIBE 10 MG TAB PO SCH (22:17)
[2021-09-24] MEDS: hydrALAZINE HCL 50 MG TAB PO SCH (22:18)
[2021-09-24] MEDS: QUEtiapine 25 MG TAB PO SCH (22:18)
[2021-09-25] MEDS: NITROGLYCERIN OINT 1 INCH/GM PACKET TOPICAL SCH ×2 (06:16→12:21)
[2021-09-25 07:16] LABS: Glucose,Whole Blood 124 mg/dL (75-99)
[2021-09-25] MEDS: IPRATROPIUM 0.5 MG/2.5 ML NEBU INHALATION SCH ×4 (07:32→20:30)
[2021-09-25] MEDS: FORMOTEROL FUMARATE 20 MCG/2 ML NEBU INHALATION SCH ×2 (07:32→20:30)
[2021-09-25] MEDS: INSULIN ASPART (NovoLOG) 100 UNIT/ML VIAL SQ SCH ×3 (08:59→17:43)
[2021-09-25] MEDS: INSULIN DETEMIR (LEVEMIR) 100 UNIT/ML SYR SQ SCH (08:59)
[2021-09-25] MEDS: hydrALAZINE HCL 50 MG TAB PO SCH ×3 (09:00→21:08)
[2021-09-25] MEDS ORDERED: ASPIRIN 325 MG TAB PO SCH (09:00)
[2021-09-25] MEDS: CLOPIDOGREL 75 MG TAB PO SCH (09:01)
[2021-09-25] MEDS: GABAPENTIN 100 MG CAP PO SCH ×2 (09:01→21:08)
[2021-09-25] MEDS: carvediloL 12.5 MG TAB PO SCH ×2 (09:01→21:08)
[2021-09-25] MEDS: amLODIPine 5 MG TAB PO SCH (09:01)
[2021-09-25] MEDS: LOSARTAN 50 MG TAB PO SCH (09:01)
[2021-09-25] MEDS: SERTRALINE 25 MG TAB PO SCH (09:02)
[2021-09-25] MEDS: SPIRONOLACTONE 25 MG TAB PO SCH (09:02)
[2021-09-25 09:30] LABS: Basophils # (A) 0.03 X 10*3/uL (0.00-0.10); Basophils % (A) 0.7 %; Eosinophils # (A) 0.16 X 10*3/uL (0.04-0.35); Eosinophils % (A) 3.5 %; HCT 30.4 % (39.6-50.0); HGB 9.6 g/dL (13.0-17.0); Lymphocytes # (A) 1.48 X 10*3/uL (0.90-5.00); Lymphocytes % (A) 32.5 %; MCHC 31.6 g/dL (32.0-37.0); MCV 85.4 fL (80.0-97.0); Mean Platelet Volume 11.6 fL (9.5-12.2); Monocytes # (A) 0.54 X 10*3/uL (0.20-1.00); Monocytes % (A) 11.9 %; Neutrophils # (A) 2.31 X 10*3/uL (1.80-7.70); Neutrophils % (A) 50.7 %; Platelet Count 143 X 10*3/uL (140-440); RBC 3.56 X 10*6/uL (4.40-5.60); RDW 16.7 % (11.5-14.5); WBC 4.55 X 10*3/uL (4.50-10.00)
--- NOTE | 2021-09-25 09:44 | P.CRDCN ---
History of Present Illness Consult date: 09/25/21 History of present illness: HISTORY OF PRESENT ILLNESS: This is a 75 year old male with a past medical history significant for hypertension, hyperlipidemia, coronary artery disease, and severe mitral regurgitation. Patient follows in the office with Dr. Hussein. We have been asked to see the patient in consultation for chest pain. Patient examined at the bedside. Patient denied having any chest pain or pressure yesterday or today. He denies SOB. The patient states he came to the hospital because of the problem with his lower extremities. He states that both of his legs go numb and it feels like 1000 needles poking him and he is unable to walk. He states yesterday he was walking up the stairs when he began to feel dizzy. He states that he sat down and got his bearings. He denies passing out. He denies any previous syncopal episodes. Records from [facility] obtained 08/19/21: Patient underwent right and left heart catheterization on 08/13/2021 revealing moderately elevated right-sided pressures, ejection fraction 20-25%, and triple vessel disease as follows: 71% left main, 80% proximal left circumflex, 75% OM 2, 71% proximal RCA, 75% mid RCA, and 100% distal RCA. Patient was found to be high risk for surgical MVR/CABG and he was referred for a structural heart disease evaluation. He states he is still waiting to hear back on timing of the procedure. EKG reveals paced rhythm with PVCs Chest xray cardiomegaly. Correlate for interstitial edema or interstitial pneumonia. Laboratory data: WBC 4.55. Hemoglobin 9.6. Platelet count 143. Sodium 137. Potassium 3.8. BUN 30. Creatinine 1.53. Magnesium 1.4. Troponin negative 3. MICHAEL in June 2020 revealed ejection fraction 37%, mild to moderate tricuspid regurgitation, and severe mitral regurgitation Echocardiogram completed in August 2021 revealed ejection fraction 30-35%, basal lateral, basal inferior, mid lateral, mid inferior, apical inferior LV wall hypokinesis, severe mitral regurgitation, mild tricuspid regurgitation and mild pulmonary hypertension Cardiac catheterization history: June 2020 revealing 20% distal left main, 35% ostial circumflex, 45% OM 2, right dominant, mild disease in the LAD, chronic subtotal occlusion of the RCA Patient underwent lower extremity arterial Doppler in August 2021 revealing severe bilateral iliofemoral occlusive disease. Vascular specialty assessment was recommended. REVIEW OF SYSTEMS: At the time of my exam: CONSTITUTIONAL: Denies fever or chills. HEENT: Denies blurred vision, vision changes, or eye pain. Denies hemoptysis CARDIOVASCULAR: Denies chest pain. Denies orthopnea. Denies PND. Denies palpitations RESPIRATORY: Denies shortness of breath. GASTROINTESTINAL: Denies abdominal pain. Denies nausea or vomiting. HEMATOLOGIC: Denies bleeding disorders. GENITOURINARY: Denies any blood in urine. SKIN: Denies pruitis. Denies rash. PHYSICAL EXAM: VITAL SIGNS: Reviewed. GENERAL: Well-developed in no acute distress. HEENT: Head is normocephalic. Pupils are equal, round. Sclerae anicteric. Mucous membranes of the mouth are moist. Neck supple. No JVD or thyromegaly LUNGS: Respirations even and unlabored. Lungs diminished to auscultation bilaterally. HEART: Regular rate and rhythm. S1 and S2 heard. Systolic murmur noted. ABDOMEN: Soft. Nondistended. Nontender. EXTREMITIES: Normal range of motion. No clubbing or cyanosis. Peripheral pulses diminished. NEUROLOGIC: Awake and alert. Oriented x 3. ASSESSMENT: Bilateral lower extremity numbness and tingling, and pain Chronic systolic heart failure Severe mitral regurgitation known Ischemic cardiomyopathy s/p BiV ICD April 2021 at [facility] Coronary artery disease Chronic kidney disease History of PPM Hypertension Hyperlipidemia Type 2 Diabetes Nicotine dependence Severe bilateral iliofemoral occlusive disease PLAN: No need to repeat echo Consult vascular surgery Patient believes he had "some blockages cleaned out" within the last month. Will attempt to obtain records from [facility]. Stable from a cardiac standpoint Patient to follow up outpatient with Dr. Hussein Patient is also to follow up with his cash management specialist at [facility], Dr. Lopez Nurse practitioner note has been reviewed by physician. Signing provider agrees with the documented findings, assessment, and plan of care. Past Medical History Past Medical History: Cancer, Chest Pain / Angina, Heart Failure, COPD, Diabetes Mellitus, Eye Disorder, Hyperlipidemia, Hypertension, Myocardial Infarction ([place]), Myocardial Infarction (non Q-wave), Osteoarthritis (OA), Prostate Disorder, Renal Disease Additional Past Medical History / Comment(s): "Needs Valve replacement."-Severe mitral vavle reguritation, Systolic HF, Ischemic cardiomyopathy, LBBB, Suicidal ideations, HX PROSTATE CANCER 30 yrs ago, BELLS PALSY, GLAUCOMA, SHORT TERM MEMORY LOSS. Lost 23 lbs recently and continues with decreased appetite. Hx CoVid December 2019. Insomnia. Chronic Hepatitis C, Stage 3 kidney disease Last Myocardial Infarction Date:: 2018 History of Any Multi-Drug Resistant Organisms: None Reported Past Surgical History: Heart Catheterization, Joint Replacement, Pacemaker, Prostate Surgery Additional Past Surgical History / Comment(s): Left hip replacement. Past Anesthesia/Blood Transfusion Reactions: No Reported Reaction Type of Cardiac Device: Permanent Pacemaker Device Placement Date:: April 2021 Past Psychological History: No Psychological Hx Reported Smoking Status: Former smoker Past Alcohol Use History: Occasional Additional Past Alcohol Use History / Comment(s): Pt states he quit smoking 3 months ago. Past Drug Use History: Marijuana - Past Family History Mother History Unknown: Yes Medications and Allergies Home Medications Medication Instructions Recorded Confirmed Type Aspirin 81 mg PO DAILY 05/15/14 09/24/21 History Atorvastatin Calcium [Lipitor] 40 mg PO HS 05/15/14 09/24/21 History Clopidogrel [Plavix] 75 mg PO DAILY 05/15/14 09/24/21 History Ezetimibe [Zetia] 10 mg PO HS 07/25/20 09/24/21 History hydrALAZINE HCL [Apresoline] 100 mg PO TID 07/25/20 09/24/21 History Albuterol Inhaler [Ventolin Hfa 2 puff INHALATION RT-Q4H PRN 08/17/21 09/24/21 History Inhaler] Carvedilol [Coreg] 12.5 mg PO BID 08/17/21 09/24/21 History Furosemide [Lasix] 40 mg PO DAILY 08/17/21 09/24/21 History INSULIN ASPART (NovoLOG) [NovoLOG 5 unit SQ AC-TID 08/17/21 09/24/21 History (formulary)] Losartan [Cozaar] 50 mg PO DAILY 08/17/21 09/24/21 History Oxymetazoline 0.05% Nasl [place] 2 spray EA NOSTRIL BID PRN 08/17/21 09/24/21 History [Afrin 0.05% Nasal [place]] Spironolactone 25 mg PO DAILY 08/17/21 09/24/21 History Umeclidinium Brm/Vilanterol Tr 1 puff INHALATION RT-DAILY 08/17/21 09/24/21 History [Anoro Ellipta 62.5-25 Mcg INH] amLODIPine [Norvasc] 5 mg PO DAILY 08/17/21 09/24/21 History Melatonin 5 mg PO HS PRN #14 tablet 08/19/21 09/24/21 Rx Sertraline [Zoloft] 25 mg PO DAILY 14 Days #14 tab 08/19/21 09/24/21 Rx Gabapentin [Neurontin] 100 mg PO BID #60 cap 08/27/21 09/24/21 Rx Insulin Detemir [Levemir Flextouch 5 units SQ DAILY 09/24/21 09/24/21 History Pen] QUEtiapine [SEROquel] 25 mg PO HS 09/24/21 09/24/21 History Allergies Allergy/AdvReac Type Severity Reaction Status Date / Time No Known Allergies Allergy Verified 09/24/21 16:11 Physical Exam Vitals: Vital Signs Temp Pulse Pulse Pulse Pulse Pulse Resp 09/25/21 07:00 98.1 F 72 16 09/25/21 02:00 69 16 09/25/21 00:47 97.6 F 60 16 09/24/21 21:59 16 09/24/21 21:28 98.2 F 69 15 09/24/21 20:00 67 16 09/24/21 17:48 66 16 09/24/21 15:43 70 75 71 09/24/21 14:31 98 F 78 18 BP BP BP BP BP Pulse Ox 09/25/21 07:00 167/76 100 09/25/21 02:00 09/25/21 00:47 100 09/24/21 21:59 09/24/21 21:28 163/78 100 09/24/21 20:00 153/84 100 09/24/21 17:48 121/81 96 09/24/21 15:43 122/65 108/71 125/93 99 09/24/21 14:31 98/59 99 Intake and Output 09/24/21 09/25/21 09/25/21 22:59 06:59 14:59 Intake Total 300 0 Balance 300 0 Intake: Oral 300 0 Other: Voiding Method Toilet # Voids 0 Weight 68.039 kg 72 kg Results 09/25/21 06:02 09/25/21 06:02 Cardiac Enzymes 09/24/21 09/24/21 09/24/21 Range/Units 15:32 15:32 17:25 AST 37 (17-59) U/L Troponin I 0.027 0.028 (0.000-0.034) ng/mL 09/24/21 Range/Units 20:47 AST (17-59) U/L Troponin I 0.024 (0.000-0.034) ng/mL Coagulation 09/24/21 Range/Units 15:32 PT 10.6 (9.0-12.0) sec APTT 24.7 (22.0-30.0) sec CBC 09/24/21 Range/Units 15:32 WBC 4.1 (3.8-10.6) k/uL RBC 3.89 L (4.30-5.90) m/uL Hgb 10.8 L (13.0-17.5) gm/dL Hct 33.5 L (39.0-53.0) % Plt Count 139 L (150-450) k/uL Comprehensive Metabolic Panel 09/24/21 Range/Units 15:32 Sodium 137 (137-145) mmol/L Potassium 3.8 (3.5-5.1) mmol/L Chloride 106 (98-107) mmol/L Carbon Dioxide 20 L (22-30) mmol/L BUN 30 H (9-20) mg/dL Creatinine 1.53 H (0.66-1.25) mg/dL Glucose 220 H (74-99) mg/dL Calcium 8.5 (8.4-10.2) mg/dL AST 37 (17-59) U/L ALT 24 (4-49) U/L Alkaline Phosphatase 55 (38-126) U/L Total Protein 6.5 (6.3-8.2) g/dL Albumin 3.3 L (3.5-5.0) g/dL Current Medications Generic Name Dose Route Start Last Admin Trade Name Freq PRN Reason Stop Dose Admin Albuterol Sulfate 2 puff 09/24/21 18:00 Albuterol Hfa Inhaler INHALATION RT-Q4H PRN Shortness Of Breath Amlodipine Besylate 5 mg 09/25/21 09:00 Amlodipine 5 Mg Tab PO DAILY ANDRESSA Aspirin 325 mg 09/25/21 09:00 Aspirin 325 Mg Tab PO DAILY [facility] Atorvastatin Calcium 40 mg 09/24/21 21:00 09/24/21 22:17 Atorvastatin 40 Mg Tab PO 40 mg HS ANDRESSA Administration Carvedilol 12.5 mg 09/24/21 21:00 09/24/21 22:17 Carvedilol 12.5 Mg Tab PO 12.5 mg BID ANDRESSA Administration Clopidogrel Bisulfate 75 mg 09/25/21 09:00 Clopidogrel 75 Mg Tab PO DAILY [facility] Ezetimibe 10 mg 09/24/21 21:00 09/24/21 22:17 Ezetimibe 10 Mg Tab PO 10 mg HS ANDRESSA Administration Formoterol Fumarate 20 mcg 09/25/21 08:00 09/25/21 07:32 Formoterol Fumarate 20 Mcg/2 Ml Nebu INHALATION Not Given RT-BID [facility] Gabapentin 100 mg 09/24/21 21:00 09/24/21 22:17 Gabapentin 100 Mg Cap PO 100 mg BID ANDRESSA Administration Hydralazine HCl 100 mg 09/24/21 22:00 09/24/21 22:18 Hydralazine Hcl 50 Mg Tab PO 100 mg TID [facility] Administration Insulin Aspart 5 unit 09/25/21 07:30 Insulin Aspart (Novolog) 100 Unit/Ml Vial SQ AC-TID [facility] Insulin Detemir 5 unit 09/25/21 07:00 Insulin Detemir (Levemir) 100 Unit/Ml Syr SQ DAILY@0700 [facility] Ipratropium [place] 0.5 mg 09/25/21 08:00 09/25/21 07:32 Ipratropium 0.5 Mg/2.5 Ml Nebu INHALATION Not Given RT-QID [facility] Losartan Potassium 50 mg 09/25/21 09:00 Losartan 50 Mg Tab PO DAILY [facility] Melatonin 5 mg 09/24/21 18:00 Melatonin 5 Mg Tablet PO HS PRN Insomnia Nitroglycerin 0.4 mg 09/24/21 16:37 Nitroglycerin Sl Tabs 0.4 Mg Tab SUBLINGUAL Q5M PRN Chest Pain Nitroglycerin 1 inch 09/24/21 18:00 09/25/21 06:16 Nitroglycerin Oint 1 Inch/Gm Packet TOPICAL 1 inch Q6HR ANDRESSA Administration Oxymetazoline HCl 2 spray 09/24/21 18:00 Oxymetazoline 0.05% Nasl [place] 1 [place] Bottle EA NOSTRIL BID PRN Congestion Quetiapine Fumarate 25 mg 09/24/21 21:00 09/24/21 22:18 Quetiapine 25 Mg Tab PO 25 mg HS ANDRESSA Administration Sertraline HCl 25 mg 09/25/21 09:00 Sertraline 25 Mg Tab PO DAILY ANDRESSA Spironolactone 25 mg 09/25/21 09:00 Spironolactone 25 Mg Tab PO DAILY ANDRESSA Intake and Output 09/24/21 09/25/21 09/25/21 22:59 06:59 14:59 Intake Total 300 0 Balance 300 0 Intake: Oral 300 0 Other: Voiding Method Toilet # Voids 0 Weight 68.039 kg 72 kg 09/24/21 15:32 09/24/21 15:32
[2021-09-25 10:14] LABS: African American GFR (CKD) 48.1 (60.0-200.0); Anion Gap 11.3 mmol/L (10.00-18.00); BUN/Creat Ratio 20.06 Ratio (12.00-20.00); Blood Urea Nitrogen 32.1 mg/dL (9.0-27.0); Calcium 8.5 mg/dL (8.7-10.3); Carbon Dioxide 20.7 mmol/L (20.0-27.5); HDL Cholesterol 52.8 mg/dL (40.00-60.00); Non-African American GFR(CKD) 41.5 (60.0-200.0); Potassium 3.5 mmol/L (3.5-5.5); Triglycerides 46.7 mg/dL (0.00-149.00)
[2021-09-25 10:27] LABS: Chol/HDL Ratio 2.22 Ratio; LDL Cholesterol,Direct Reflex 57.4 mg/dL (0.00-129.00)
[2021-09-25 12:42] LABS: Glucose,Whole Blood 130 mg/dL (75-99)
--- NOTE | 2021-09-25 13:03 | P.GSCN ---
History of Present Illness Consult date: 09/25/21 Reason for Consult: leg pain, ileobifemoral occlusive disease Requesting physician: Bettina Dolan History of present illness: Valentino is a 75-year-old male who presented to the hospital with shortness of breath as well as leg pain. He has a past medical history including hypertension, hyperlipidemia, coronary artery disease, ischemic cardiomyopathy with ICD placement in April 2021, severe mitral regurg, diabetes, COPD, peripheral arterial disease with claudication, history of tobacco abuse who quit for 5 weeks ago. He was a pack per day smoker since the age of 21. He recently underwent heart catheterization at [facility] at the beginning of August and was found to be high risk for surgical MVR/CABG was referred for structural heart disease evaluation. He was seen mid-August here by vascular surgery for his leg pain and underwent arterial Doppler study with STEPHANIE of 0.2 on the right and 0.27 on the left, showing bilateral severe iliofemoral occlusive disease. Patient was supposed to follow-up with vascular surgery however did not comply. He states that he is unable to walk very far distance. states he would not even be able to walk down the [place] and back. He said his pain started approximately 6 months ago but has gotten worse in the last 1-2 months. He denies any pain at rest. He denies any wounds. He states that he feels this tingling type pain from his hips down to his feet along with subsequent numbness. He is currently denying any chest pain, states he has some mild shortness of breath. Review of Systems A 14 point review of systems was completed all pertinent positives and negatives as stated in the HPI Past Medical History Past Medical History: Cancer, Chest Pain / Angina, Heart Failure, COPD, Diabetes Mellitus, Eye Disorder, Hyperlipidemia, Hypertension, Myocardial Infarction ([place]), Myocardial Infarction (non Q-wave), Osteoarthritis (OA), Prostate Disorder, Renal Disease Additional Past Medical History / Comment(s): "Needs Valve replacement."-Severe mitral vavle reguritation, Systolic HF, Ischemic cardiomyopathy, LBBB, Suicidal ideations, HX PROSTATE CANCER 30 yrs ago, BELLS PALSY, GLAUCOMA, SHORT TERM MEMORY LOSS. Lost 23 lbs recently and continues with decreased appetite. Hx CoVid December 2019. Insomnia. Chronic Hepatitis C, Stage 3 kidney disease Last Myocardial Infarction Date:: 2018 History of Any Multi-Drug Resistant Organisms: None Reported Past Surgical History: Heart Catheterization, Joint Replacement, Pacemaker, Prostate Surgery Additional Past Surgical History / Comment(s): Left hip replacement. Past Anesthesia/Blood Transfusion Reactions: No Reported Reaction Type of Cardiac Device: Permanent Pacemaker Device Placement Date:: April 2021 Past Psychological History: No Psychological Hx Reported Smoking Status: Former smoker Past Alcohol Use History: Occasional Additional Past Alcohol Use History / Comment(s): Pt states he quit smoking 3 months ago. Past Drug Use History: Marijuana - Past Family History Mother History Unknown: Yes Medications and Allergies Home Medications Medication Instructions Recorded Confirmed Type Aspirin 81 mg PO DAILY 05/15/14 09/24/21 History Atorvastatin Calcium [Lipitor] 40 mg PO HS 05/15/14 09/24/21 History Clopidogrel [Plavix] 75 mg PO DAILY 05/15/14 09/24/21 History Ezetimibe [Zetia] 10 mg PO HS 07/25/20 09/24/21 History hydrALAZINE HCL [Apresoline] 100 mg PO TID 07/25/20 09/24/21 History Albuterol Inhaler [Ventolin Hfa 2 puff INHALATION RT-Q4H PRN 08/17/21 09/24/21 History Inhaler] Carvedilol [Coreg] 12.5 mg PO BID 08/17/21 09/24/21 History Furosemide [Lasix] 40 mg PO DAILY 08/17/21 09/24/21 History INSULIN ASPART (NovoLOG) [NovoLOG 5 unit SQ AC-TID 08/17/21 09/24/21 History (formulary)] Losartan [Cozaar] 50 mg PO DAILY 08/17/21 09/24/21 History Oxymetazoline 0.05% Nasl [place] 2 spray EA NOSTRIL BID PRN 08/17/21 09/24/21 History [Afrin 0.05% Nasal [place]] Spironolactone 25 mg PO DAILY 08/17/21 09/24/21 History Umeclidinium Brm/Vilanterol Tr 1 puff INHALATION RT-DAILY 08/17/21 09/24/21 History [Anoro Ellipta 62.5-25 Mcg INH] amLODIPine [Norvasc] 5 mg PO DAILY 08/17/21 09/24/21 History Melatonin 5 mg PO HS PRN #14 tablet 08/19/21 09/24/21 Rx Sertraline [Zoloft] 25 mg PO DAILY 14 Days #14 tab 08/19/21 09/24/21 Rx Gabapentin [Neurontin] 100 mg PO BID #60 cap 08/27/21 09/24/21 Rx Insulin Detemir [Levemir Flextouch 5 units SQ DAILY 09/24/21 09/24/21 History Pen] QUEtiapine [SEROquel] 25 mg PO HS 09/24/21 09/24/21 History Allergies Allergy/AdvReac Type Severity Reaction Status Date / Time No Known Allergies Allergy Verified 09/24/21 16:11 Surgical - Exam Vital Signs Temp Pulse Resp BP Pulse Ox 98 F 78 18 98/59 99 09/24/21 14:31 09/24/21 14:31 09/24/21 14:31 09/24/21 14:31 09/24/21 14:31 General appearance: The patient is alert, oriented, Stein, appears in no acute distress. HET: Head is normocephalic and atraumatic. Pupils are equal and reactive. Oropharynx is clear without lesions.maciej midline. Heart: S1 S2. Regular rate and rhythm. Lungs: No crackles or wheezes are heard. Abdomen: Soft, nontender, nondistended. No peritoneal signs. No palpable organomegaly or masses. Extremities: Normal skin color and turgor. Dry skin, no wounds seen. No cyanosis, rash, ulceration, clubbing, or edema. Patient has monophasic posterior tibialis and dorsalis pedis Doppler signal. Bilateral lower extremities warm to the touch. No pain with palpation. Neurological: No focal deficits. Strength and sensation are grossly intact. Results - Labs 09/25/21 06:02 09/25/21 06:02 Abnormal Lab Results - Last 24 Hours (Table) 09/24/21 09/24/21 09/24/21 Range/Units 15:32 15:32 21:41 RBC 3.89 L (4.30-5.90) m/uL Hgb 10.8 L (13.0-17.5) gm/dL Hct 33.5 L (39.0-53.0) % MCHC (32.0-37.0) g/dL RDW 16.2 H (11.5-15.5) % Plt Count 139 L (150-450) k/uL Carbon Dioxide 20 L (22-30) mmol/L BUN 30 H (9-20) mg/dL Creatinine 1.53 H (0.66-1.25) mg/dL Glucose 220 H (74-99) mg/dL POC Glucose (mg/dL) 289 H (75-99) mg/dL Magnesium 1.4 L (1.6-2.3) mg/dL Albumin 3.3 L (3.5-5.0) g/dL 09/25/21 09/25/21 Range/Units 06:02 07:14 RBC 3.56 L (4.30-5.90) m/uL Hgb 9.6 L (13.0-17.5) gm/dL Hct 30.4 L (39.0-53.0) % MCHC 31.6 L (32.0-37.0) g/dL RDW 16.7 H (11.5-15.5) % Plt Count (150-450) k/uL Carbon Dioxide (22-30) mmol/L BUN (9-20) mg/dL Creatinine (0.66-1.25) mg/dL Glucose (74-99) mg/dL POC Glucose (mg/dL) 124 H (75-99) mg/dL Magnesium (1.6-2.3) mg/dL Albumin (3.5-5.0) g/dL Diabetes panel 09/24/21 Range/Units 15:32 Sodium 137 (137-145) mmol/L Potassium 3.8 (3.5-5.1) mmol/L Chloride 106 (98-107) mmol/L Carbon Dioxide 20 L (22-30) mmol/L BUN 30 H (9-20) mg/dL Creatinine 1.53 H (0.66-1.25) mg/dL Glucose 220 H (74-99) mg/dL Calcium 8.5 (8.4-10.2) mg/dL AST 37 (17-59) U/L ALT 24 (4-49) U/L Alkaline Phosphatase 55 (38-126) U/L Total Protein 6.5 (6.3-8.2) g/dL Albumin 3.3 L (3.5-5.0) g/dL Calcium panel 09/24/21 Range/Units 15:32 Calcium 8.5 (8.4-10.2) mg/dL Albumin 3.3 L (3.5-5.0) g/dL Pituitary panel 09/24/21 Range/Units 15:32 Sodium 137 (137-145) mmol/L Potassium 3.8 (3.5-5.1) mmol/L Chloride 106 (98-107) mmol/L Carbon Dioxide 20 L (22-30) mmol/L BUN 30 H (9-20) mg/dL Creatinine 1.53 H (0.66-1.25) mg/dL Glucose 220 H (74-99) mg/dL Calcium 8.5 (8.4-10.2) mg/dL Adrenal panel 09/24/21 Range/Units 15:32 Sodium 137 (137-145) mmol/L Potassium 3.8 (3.5-5.1) mmol/L Chloride 106 (98-107) mmol/L Carbon Dioxide 20 L (22-30) mmol/L BUN 30 H (9-20) mg/dL Creatinine 1.53 H (0.66-1.25) mg/dL Glucose 220 H (74-99) mg/dL Calcium 8.5 (8.4-10.2) mg/dL Total Bilirubin 0.3 (0.2-1.3) mg/dL AST 37 (17-59) U/L ALT 24 (4-49) U/L Alkaline Phosphatase 55 (38-126) U/L Total Protein 6.5 (6.3-8.2) g/dL Albumin 3.3 L (3.5-5.0) g/dL Assessment and Plan Assessment: 1. Bilateral lower extremity pain 2. Severe bilateral iliofemoral occlusive disease per arterial Doppler study 3. Severe Coronary artery disease 4. History of tobacco abuse 5. High risk for MVR/CABG Plan: 1. No indication for any acute vascular surgical intervention at this time 2. Discuss with patient need for follow-up with vascular surgery for further evaluation however patient is extremely high risk for any procedures due to his severe cardiac disease. Patient will certainly need cardiac evaluation and clearance any procedures 3. Tobacco abstinence 4. Patient is cleared for discharge from vascular surgical services with outpatient follow-up Thank you for this consultation allowing us take part in the plan of care of your patient during his hospital stay. The impression and plan of care has been dictated as directed. Dr. Torres I performed a history and examination of this patient, discussed the same with the dictator. I agree with the dictator's note ,documented as a scribe. Any additional findings or plans will be noted.
[2021-09-25] MEDS ORDERED: HYDROcodone/APAP 5-325MG 1 EACH TAB PO STA (13:28)
--- NOTE | 2021-09-25 15:56 | P.PN ---
Subjective Progress Note Date: 09/25/21 Physical 75-year-old male who was recently admitted with chest pain associated with some dizziness and shortness of breath and brought here for further evaluation. Patient also having some numbness and weakness with exertion and having leg pain. Patient was seen and evaluated by cardiology recommending continuing current medications and to follow-up in the outpatient setting. Patient was also seen and evaluated by vascular surgery as he follows with Dr. Torres and recommending outpatient follow-up. Patient is weak and evaluated by physical therapy recommending subacute rehab and guardian would like him to go [facility] prior to returning to his [place] house. She denies any chest pain or shortness of breath. Patient is tolerating diet with no reports of nausea or vomiting noted. Labs: WBC is 4.55, hemoglobin is 9.6, platelets are 143, sodium is 138, potassium is 3.5, BUN is 32.1, creatinine is 1.6, calcium is 8.5, triglycerides 46.7, cholesterol 117.0, LDL direct 57.40, HDL 52.8 Review of systems: Constitutional: No reports of fatigue, fever, or chills Cardiovascular: No reports of chest pain or palpitations Respiratory: No reports of shortness of breath or cough GI: No reports of nausea, vomiting, or diarrhea : No reports of dysuria or retention Neurovascular: rePorts generalized weakness in bilateral lower extremity pain All medications have been reviewed Active Medications Albuterol Sulfate (Albuterol Hfa Inhaler) 2 puff INHALATION RT-Q4H PRN PRN Reason: Shortness Of Breath Amlodipine Besylate (Amlodipine 5 Mg Tab) 5 mg PO DAILY [facility] Last Admin: 09/25/21 09:01 Dose: 5 mg Documented by: Aspirin (Aspirin 81 Mg) 81 mg PO DAILY [facility] Atorvastatin Calcium (Atorvastatin 40 Mg Tab) 40 mg PO [facility] Last Admin: 09/24/21 22:17 Dose: 40 mg Documented by: Carvedilol (Carvedilol 12.5 Mg Tab) 12.5 mg PO BID [facility] Last Admin: 09/25/21 09:01 Dose: 12.5 mg Documented by: Clopidogrel Bisulfate (Clopidogrel 75 Mg Tab) 75 mg PO DAILY [facility] Last Admin: 09/25/21 09:01 Dose: 75 mg Documented by: Ezetimibe (Ezetimibe 10 Mg Tab) 10 mg PO [facility] Last Admin: 09/24/21 22:17 Dose: 10 mg Documented by: Formoterol Fumarate (Formoterol Fumarate 20 Mcg/2 Ml Nebu) 20 mcg INHALATION RT-BID [facility] Last Admin: 09/25/21 07:32 Dose: Not Given Documented by: Gabapentin (Gabapentin 100 Mg Cap) 100 mg PO BID [facility] Last Admin: 09/25/21 09:01 Dose: 100 mg Documented by: Hydralazine HCl (Hydralazine Hcl 50 Mg Tab) 100 mg PO TID [facility] Last Admin: 09/25/21 09:00 Dose: 100 mg Documented by: Insulin Aspart (Insulin Aspart (Novolog) 100 Unit/Ml Vial) 5 unit SQ AC-TID [facility] Last Admin: 09/25/21 13:22 Dose: 5 unit Documented by: Insulin Detemir (Insulin Detemir (Levemir) 100 Unit/Ml Syr) 5 unit SQ DAILY@0700 [facility] Last Admin: 09/25/21 08:59 Dose: 5 unit Documented by: Ipratropium [place] (Ipratropium 0.5 Mg/2.5 Ml Nebu) 0.5 mg INHALATION RT-QID [facility] Last Admin: 09/25/21 14:58 Dose: Not Given Documented by: Losartan Potassium (Losartan 50 Mg Tab) 50 mg PO DAILY [facility] Last Admin: 09/25/21 09:01 Dose: 50 mg Documented by: Melatonin (Melatonin 5 Mg Tablet) 5 mg PO HS PRN PRN Reason: Insomnia Nitroglycerin (Nitroglycerin Sl Tabs 0.4 Mg Tab) 0.4 mg SUBLINGUAL Q5M PRN PRN Reason: Chest Pain Oxymetazoline HCl (Oxymetazoline 0.05% Nasl [place] 1 [place] Bottle) 2 spray EA NOSTRIL BID PRN PRN Reason: Congestion Quetiapine Fumarate (Quetiapine 25 Mg Tab) 25 mg PO HS [facility] Last Admin: 09/24/21 22:18 Dose: 25 mg Documented by: Sertraline HCl (Sertraline 25 Mg Tab) 25 mg PO DAILY [facility] Last Admin: 09/25/21 09:02 Dose: 25 mg Documented by: Spironolactone (Spironolactone 25 Mg Tab) 25 mg PO DAILY [facility] Last Admin: 09/25/21 09:02 Dose: 25 mg Documented by: Physical exam: Gen: This is a 75-year-old male awake, alert and oriented 3, well-developed, well-nourished, thin built. Temp is 97.5F, pulse is 71, respirations are 16, blood pressure is 130/61, oxygen saturation is 100% on room air. HEENT: Head is atraumatic, normocephalic. Pupils equal, round. Sclerae is anicteric. NECK: Supple. No JVD. No lymphadenopathy. No thyromegaly. LUNGS: Diminished breath sounds bilaterally with some scattered rhonchi and no wheezing noted.. No intercostal retractions. HEART: S1, S2 are muffled. ABDOMEN: Soft. Bowel sounds are present. No masses. No tenderness. EXTREMITIES: No pedal edema. No calf tenderness. NEUROLOGICAL: Patient is awake, alert and oriented x3. Cranial nerves 2 through 12 are grossly intact. Assessment: Chest pain, possible unstable angina Bilateral numbness and weakness, possibly back pain and degenerative joint disease, rule out spinal canal stenosis Hypomagnesemia Increased creatinine with chronic kidney disease, stage III anemia, normocytic anemia of chronic disease Mild thrombocytopenia history of coronary artery disease History of congestive heart failure chronic obstructive pulmonary disease diabetes mellitus type 2 hypertension Hyperlipidemia history of myocardial infarction history of degenerative joint disease History of prostate disorder history of severe mitral regurgitation history of ischemic cardiomyopathy history of left bundle branch block Suicidal ideations history of prostate cancer history of Szymanski's palsy history of glaucoma history of insomnia history of chronic hepatitis C History of nicotine dependence Bilateral Peripheral vascular disease and bilateral iliofemoral disease Plan: recommend continue current medications and management. Patient has been evaluated by cardiology along with vascular surgery recommending outpatient follow-up and continuing with current medications. Patient is having some leg pain and weakness and was evaluated by physical therapy recommending subacute rehab and guardian would like him to go to ECF prior to returning to [facility] for some physical therapy and strengthen mobility. Patient is to follow-up with vascular surgery Dr. Torres in the outpatient setting for the severe bilateral iliofemoral occlusive disease. Case management and social work consulted for ECF placement. Authorization will be required by insurance for ECF. Creatinine mildly elevated at 1.6 and will repeat labs and monitor closely. Recommend continue Accu-Cheks before meals and at bedtime and sliding scale along with long-acting.. Objective - Vital Signs Vital signs: Vital Signs Temp 97.5 F L 09/25/21 15:00 Pulse 71 09/25/21 15:00 Resp 16 09/25/21 15:00 BP 130/61 09/25/21 15:00 Pulse Ox 100 09/25/21 15:00 Intake & Output 09/24/21 09/25/21 09/25/21 18:59 06:59 18:59 Intake Total 300 360 Output Total 400 Balance 300 -40 Weight 68.039 kg 72 kg Intake: Oral 300 360 Output: Urine 400 Other: Voiding Method Toilet Toilet # Voids 0 - Labs CBC & Chem 7: 09/25/21 06:02 09/25/21 06:02 Labs: Abnormal Lab Results - Last 24 Hours (Table) 09/24/21 09/24/21 09/24/21 Range/Units 15:32 15:32 21:41 RBC 3.89 L (4.30-5.90) m/uL Hgb 10.8 L (13.0-17.5) gm/dL Hct 33.5 L (39.0-53.0) % MCHC (32.0-37.0) g/dL RDW 16.2 H (11.5-15.5) % Plt Count 139 L (150-450) k/uL Carbon Dioxide 20 L (22-30) mmol/L BUN 30 H (9-20) mg/dL Creatinine 1.53 H (0.66-1.25) mg/dL Est GFR (CKD-EPI)AfAm (60.0-200.0) Est GFR (CKD-EPI)NonAf (60.0-200.0) BUN/Creatinine Ratio (12.00-20.00) Ratio Glucose 220 H (74-99) mg/dL POC Glucose (mg/dL) 289 H (75-99) mg/dL Calcium (8.7-10.3) mg/dL Magnesium 1.4 L (1.6-2.3) mg/dL Albumin 3.3 L (3.5-5.0) g/dL 09/25/21 09/25/21 09/25/21 Range/Units 06:02 06:02 07:14 RBC 3.56 L (4.30-5.90) m/uL Hgb 9.6 L (13.0-17.5) gm/dL Hct 30.4 L (39.0-53.0) % MCHC 31.6 L (32.0-37.0) g/dL RDW 16.7 H (11.5-15.5) % Plt Count (150-450) k/uL Carbon Dioxide (22-30) mmol/L BUN 32.1 H (9-20) mg/dL Creatinine 1.6 H (0.66-1.25) mg/dL Est GFR (CKD-EPI)AfAm 48.1 L (60.0-200.0) Est GFR (CKD-EPI)NonAf 41.5 L (60.0-200.0) BUN/Creatinine Ratio 20.06 H (12.00-20.00) Ratio Glucose 129 H (74-99) mg/dL POC Glucose (mg/dL) 124 H (75-99) mg/dL Calcium 8.5 L (8.7-10.3) mg/dL Magnesium (1.6-2.3) mg/dL Albumin (3.5-5.0) g/dL 09/25/21 Range/Units 12:40 RBC (4.30-5.90) m/uL Hgb (13.0-17.5) gm/dL Hct (39.0-53.0) % MCHC (32.0-37.0) g/dL RDW (11.5-15.5) % Plt Count (150-450) k/uL Carbon Dioxide (22-30) mmol/L BUN (9-20) mg/dL Creatinine (0.66-1.25) mg/dL Est GFR (CKD-EPI)AfAm (60.0-200.0) Est GFR (CKD-EPI)NonAf (60.0-200.0) BUN/Creatinine Ratio (12.00-20.00) Ratio Glucose (74-99) mg/dL POC Glucose (mg/dL) 130 H (75-99) mg/dL Calcium (8.7-10.3) mg/dL Magnesium (1.6-2.3) mg/dL Albumin (3.5-5.0) g/dL
[2021-09-25 17:39] LABS: Glucose,Whole Blood 133 mg/dL (75-99)
[2021-09-25 20:11] LABS: Glucose,Whole Blood 159 mg/dL (75-99)
[2021-09-25] MEDS: ATORVASTATIN 40 MG TAB PO SCH (21:08)
[2021-09-25] MEDS: EZETIMIBE 10 MG TAB PO SCH (21:08)
[2021-09-25] MEDS: QUEtiapine 25 MG TAB PO SCH (21:08)
[2021-09-26 05:16] LABS: African American GFR (CKD) 49 (>60 ml/min/1.73 sqM); Anion Gap 9 mmol/L; Blood Urea Nitrogen 36 mg/dL (9-20); Calcium 8.4 mg/dL (8.4-10.2); Carbon Dioxide 22 mmol/L (22-30); Chloride 106 mmol/L (98-107); Glucose 119 mg/dL (74-99); Non-African American GFR(CKD) 42 (>60 ml/min/1.73 sqM); Potassium 3.8 mmol/L (3.5-5.1); Sodium 137 mmol/L (137-145)
[2021-09-26] MEDS: FORMOTEROL FUMARATE 20 MCG/2 ML NEBU INHALATION SCH ×2 (07:23→20:32)
[2021-09-26] MEDS: IPRATROPIUM 0.5 MG/2.5 ML NEBU INHALATION SCH ×4 (07:24→20:31)
[2021-09-26 08:16] LABS: Glucose,Whole Blood 139 mg/dL (75-99)
[2021-09-26] MEDS: INSULIN ASPART (NovoLOG) 100 UNIT/ML VIAL SQ SCH ×3 (08:36→18:08)
[2021-09-26] MEDS: CLOPIDOGREL 75 MG TAB PO SCH (08:37)
[2021-09-26] MEDS: amLODIPine 5 MG TAB PO SCH (08:37)
[2021-09-26] MEDS: GABAPENTIN 100 MG CAP PO SCH ×2 (08:37→20:58)
[2021-09-26] MEDS: INSULIN DETEMIR (LEVEMIR) 100 UNIT/ML SYR SQ SCH (08:37)
[2021-09-26] MEDS: LOSARTAN 50 MG TAB PO SCH (08:38)
[2021-09-26] MEDS: ASPIRIN 81 MG PO SCH (08:38)
[2021-09-26] MEDS: carvediloL 12.5 MG TAB PO SCH ×2 (08:38→20:58)
[2021-09-26] MEDS: SPIRONOLACTONE 25 MG TAB PO SCH (08:38)
[2021-09-26] MEDS: hydrALAZINE HCL 50 MG TAB PO SCH ×3 (08:46→20:58)
[2021-09-26] MEDS: SERTRALINE 25 MG TAB PO SCH (11:16)
[2021-09-26 11:21] LABS: Glucose,Whole Blood 248 mg/dL (75-99)
--- NOTE | 2021-09-26 13:59 | P.PN ---
Subjective Progress Note Date: 09/26/21 This is a pleasant 75-year-old gentleman who follows in the office with Dr. Hussein. He has a history of hypertension, hyperlipidemia CAD, and severe mitral regurgitation. He's been following with Dr. Omega Quiroga out of [facility] to evaluate for high risk PCI as well as intervention for the mitral valve. Presented to the hospital with complaints of lower extremity pain, numbness and pins and needles feeling causing him to be unable to walk. Vascular has some pot on consult. We are asked to the patient in consultation for an episode of chest discomfort. Bone ends were negative 3. Patient remains chest pain-free. Objective - Vital Signs Vital signs: Vital Signs Temp 98.3 F 09/26/21 07:17 Pulse 75 09/26/21 07:17 Resp 16 09/26/21 07:17 BP 168/76 09/26/21 07:17 Pulse Ox 100 09/26/21 07:17 Intake & Output 09/25/21 09/26/21 09/26/21 18:59 06:59 18:59 Intake Total 360 180 Output Total 400 750 Balance -40 -570 Weight 73.5 kg Intake: Oral 360 180 Output: Urine 400 750 Other: Voiding Method Toilet Toilet Toilet # Voids 1 - Exam PHYSICAL EXAMINATION: HEENT: Head is atraumatic, normocephalic. Pupils equal, round. Neck is supple. There is no elevated jugular venous pressure. HEART EXAMINATION: Heart sounds regular, S1 and S2 normal. Systolic murmur. CHEST EXAMINATION: Lungs are clear to auscultation and precussion. No chest wall tenderness is noted on palpation or with deep breathing. ABDOMEN: Soft, nontender. Bowel sounds are heard. No organomegaly noted. EXTREMITIES: Diminished peripheral pulses with no evidence of peripheral edema and no calf tenderness noted. NEUROLOGIC patient is awake, alert and oriented x3. . - Labs CBC & Chem 7: 09/25/21 06:02 09/26/21 04:18 Labs: Abnormal Lab Results - Last 24 Hours (Table) 09/25/21 09/25/21 09/26/21 Range/Units 17:38 20:10 04:18 BUN 36 H (9-20) mg/dL Creatinine 1.59 H (0.66-1.25) mg/dL Glucose 119 H (74-99) mg/dL POC Glucose (mg/dL) 133 H 159 H (75-99) mg/dL 09/26/21 09/26/21 Range/Units 08:09 11:19 BUN (9-20) mg/dL Creatinine (0.66-1.25) mg/dL Glucose (74-99) mg/dL POC Glucose (mg/dL) 139 H 248 H (75-99) mg/dL Assessment and Plan Assessment: Bilateral lower extremity numbness and tingling, and pain Chronic systolic heart failure Severe mitral regurgitation known Ischemic cardiomyopathy s/p BiV ICD April 2021 at [facility] Coronary artery disease Chronic kidney disease History of PPM Hypertension Hyperlipidemia Type 2 Diabetes Nicotine dependence Severe bilateral iliofemoral occlusive disease Plan: From cardiology perspective patient is stable for discharge home. He will need to follow-up with an outpatient with Dr. Naylor at [facility]. [employer] note has been reviewed, I agree with a documented findings and plan of care. Patient was seen and examined.
[2021-09-26] MEDS ORDERED: HYDROcodone/APAP 5-325MG 1 EACH TAB PO PRN (17:12)
[2021-09-26] MEDS: ACETAMINOPHEN TAB 325 MG TAB PO PRN (17:21)
[2021-09-26 17:36] LABS: Glucose,Whole Blood 107 mg/dL (75-99)
[2021-09-26 20:36] LABS: Glucose,Whole Blood 125 mg/dL (75-99)
[2021-09-26] MEDS: QUEtiapine 25 MG TAB PO SCH (20:58)
[2021-09-26] MEDS: EZETIMIBE 10 MG TAB PO SCH (20:58)
[2021-09-26] MEDS: ATORVASTATIN 40 MG TAB PO SCH (20:58)
--- NOTE | 2021-09-26 22:05 | P.PN ---
Subjective Progress Note Date: 09/26/21 Physical 75-year-old male who was recently admitted with chest pain associated with some dizziness and shortness of breath and brought here for further evaluation. Patient also having some numbness and weakness with exertion and having leg pain. Patient was seen and evaluated by cardiology recommending continuing current medications and to follow-up in the outpatient setting. Patient was also seen and evaluated by vascular surgery as he follows with Dr. Torres and recommending outpatient follow-up. Patient is weak and evaluated by physical therapy recommending subacute rehab and guardian would like him to go to [facility] prior to returning to his [place] house. She denies any chest pain or shortness of breath. Patient is tolerating diet with no reports of nausea or vomiting noted. 09/26/2021 Patient is seen this morning follow-up and continues to be closely monitored. Cardiology following the patient and vascular surgery has evaluated the patient recommending outpatient follow-up. Patient continues with lower extremity bilateral leg pain and weakness and was evaluated by physical therapy recommending subacute rehab. Patient's insurance will require an authorization and awaiting an accepting facility. Legal guardian is aware of this and agreeable with this treatment plan. Patient is requiring more than 2 night hospitalization due to continued symptomatic weakness and leg pain. Labs: Sodium is 137, potassium is 3.8, BUN is 36, creatinine is 1.59, calcium is 8.4 Review of systems: Constitutional: No reports of fatigue, fever, or chills Cardiovascular: No reports of chest pain or palpitations Respiratory: No reports of shortness of breath or cough GI: No reports of nausea, vomiting, or diarrhea : No reports of dysuria or retention Neurovascular: reports generalized weakness in bilateral lower extremity pain All medications have been reviewed Active Medications Albuterol Sulfate (Albuterol Hfa Inhaler) 2 puff INHALATION RT-Q4H PRN PRN Reason: Shortness Of Breath Amlodipine Besylate (Amlodipine 5 Mg Tab) 5 mg PO DAILY [facility] Last Admin: 09/26/21 08:37 Dose: 5 mg Documented by: Aspirin (Aspirin 81 Mg) 81 mg PO DAILY [facility] Last Admin: 09/26/21 08:38 Dose: 81 mg Documented by: Atorvastatin Calcium (Atorvastatin 40 Mg Tab) 40 mg PO HS [facility] Last Admin: 09/25/21 21:08 Dose: 40 mg Documented by: Carvedilol (Carvedilol 12.5 Mg Tab) 12.5 mg PO BID [facility] Last Admin: 09/26/21 08:38 Dose: 12.5 mg Documented by: Clopidogrel Bisulfate (Clopidogrel 75 Mg Tab) 75 mg PO DAILY [facility] Last Admin: 09/26/21 08:37 Dose: 75 mg Documented by: Ezetimibe (Ezetimibe 10 Mg Tab) 10 mg PO HS [facility] Last Admin: 09/25/21 21:08 Dose: 10 mg Documented by: Formoterol Fumarate (Formoterol Fumarate 20 Mcg/2 Ml Nebu) 20 mcg INHALATION RT-BID [facility] Last Admin: 09/26/21 07:23 Dose: Not Given Documented by: Gabapentin (Gabapentin 100 Mg Cap) 100 mg PO BID [facility] Last Admin: 09/26/21 08:37 Dose: 100 mg Documented by: Hydralazine HCl (Hydralazine Hcl 50 Mg Tab) 100 mg PO TID [facility] Last Admin: 09/26/21 08:46 Dose: 100 mg Documented by: Insulin Aspart (Insulin Aspart (Novolog) 100 Unit/Ml Vial) 5 unit SQ AC-TID [facility] Last Admin: 09/26/21 08:36 Dose: 5 unit Documented by: Insulin Detemir (Insulin Detemir (Levemir) 100 Unit/Ml Syr) 5 unit SQ DAILY@0700 [facility] Last Admin: 09/26/21 08:37 Dose: 5 unit Documented by: Ipratropium [place] (Ipratropium 0.5 Mg/2.5 Ml Nebu) 0.5 mg INHALATION RT-QID [facility] Last Admin: 09/26/21 07:24 Dose: Not Given Documented by: Losartan Potassium (Losartan 50 Mg Tab) 50 mg PO DAILY [facility] Last Admin: 09/26/21 08:38 Dose: 50 mg Documented by: Melatonin (Melatonin 5 Mg Tablet) 5 mg PO HS PRN PRN Reason: Insomnia Nitroglycerin (Nitroglycerin Sl Tabs 0.4 Mg Tab) 0.4 mg SUBLINGUAL Q5M PRN PRN Reason: Chest Pain Oxymetazoline HCl (Oxymetazoline 0.05% Nasl [place] 1 [place] Bottle) 2 spray EA NOSTRIL BID PRN PRN Reason: Congestion Quetiapine Fumarate (Quetiapine 25 Mg Tab) 25 mg PO HS [facility] Last Admin: 09/25/21 21:08 Dose: 25 mg Documented by: Sertraline HCl (Sertraline 25 Mg Tab) 25 mg PO DAILY [facility] Last Admin: 09/25/21 09:02 Dose: 25 mg Documented by: Spironolactone (Spironolactone 25 Mg Tab) 25 mg PO DAILY [facility] Last Admin: 09/26/21 08:38 Dose: 25 mg Documented by: Physical exam: Gen: This is a 75-year-old male awake, alert and oriented 3, well-developed, well-nourished, thin built. Temp is 98.3 F, pulse is 75, respirations are 16, blood pressure is 168/76, oxygen saturation is 100% on room air. HEENT: Head is atraumatic, normocephalic. Pupils equal, round. Sclerae is anicteric. NECK: Supple. No JVD. No lymphadenopathy. No thyromegaly. LUNGS: Diminished breath sounds bilaterally with some scattered rhonchi and no wheezing noted.. No intercostal retractions. HEART: S1, S2 are muffled. ABDOMEN: Soft. Bowel sounds are present. No masses. No tenderness. EXTREMITIES: No pedal edema. No calf tenderness. NEUROLOGICAL: Patient is awake, alert and oriented x3. Cranial nerves 2 through 12 are grossly intact. Assessment: Chest pain, possible unstable angina Bilateral numbness and weakness of lower extremities, possibly back pain and degenerative joint disease, rule out spinal canal stenosis Hypomagnesemia Increased creatinine with chronic kidney disease, stage III anemia, normocytic anemia of chronic disease Mild thrombocytopenia history of coronary artery disease History of congestive heart failure chronic obstructive pulmonary disease diabetes mellitus type 2 hypertension Hyperlipidemia history of myocardial infarction history of degenerative joint disease History of prostate disorder history of severe mitral regurgitation history of ischemic cardiomyopathy history of left bundle branch block Suicidal ideations history of prostate cancer history of Szymanski's palsy history of glaucoma history of insomnia history of chronic hepatitis C History of nicotine dependence Bilateral Peripheral vascular disease and bilateral iliofemoral disease Plan: recommend to continue current medications and management. Patient has been evaluated by cardiology along with vascular surgery recommending outpatient follow-up and continuing with current medications. Patient is having some leg pain and weakness and was evaluated by physical therapy recommending subacute rehab and plan is for ECF prior to returning to [facility] for some physical therapy and strength and mobility. Patient is to follow-up with vascular surgery Dr. Torres in the outpatient setting for the severe bilateral iliofemoral occlusive disease. Patient will also follow up with cardiology in the outpatient setting. Social work following. Authorization will be required by in [facility] for ECF. Will continue to monitor closely. Recommend continue Accu- Cheks before meals and at bedtime and sliding scale along with long-acting insulin. Due to multiple complex medical issues, prognosis is guarded. Objective - Vital Signs Vital signs: Vital Signs Temp 98.3 F 09/26/21 01:24 Pulse 64 09/26/21 01:24 Resp 16 09/26/21 01:24 BP 139/69 09/26/21 01:24 Pulse Ox 99 09/26/21 01:24 Intake & Output 09/25/21 09/26/21 09/26/21 18:59 06:59 18:59 Intake Total 360 Output Total 400 Balance -40 Weight 73.5 kg Intake: Oral 360 Output: Urine 400 Other: Voiding Method Toilet Toilet # Voids 1 - Labs CBC & Chem 7: 09/25/21 06:02 09/26/21 04:18 Labs: Abnormal Lab Results - Last 24 Hours (Table) 09/25/21 09/25/21 09/25/21 Range/Units 06:02 06:02 12:40 RBC 3.56 L (4.40-5.60) X 10*6/uL Hgb 9.6 L (13.0-17.0) g/dL Hct 30.4 L (39.6-50.0) % MCHC 31.6 L (32.0-37.0) g/dL RDW 16.7 H (11.5-14.5) % BUN 32.1 H (9.0-27.0) mg/dL Creatinine 1.6 H (0.6-1.5) mg/dL Est GFR (CKD-EPI)AfAm 48.1 L (60.0-200.0) Est GFR (CKD-EPI)NonAf 41.5 L (60.0-200.0) BUN/Creatinine Ratio 20.06 H (12.00-20.00) Ratio Glucose 129 H (70-110) mg/dL POC Glucose (mg/dL) 130 H (75-99) mg/dL Calcium 8.5 L (8.7-10.3) mg/dL 09/25/21 09/25/21 09/26/21 Range/Units 17:38 20:10 04:18 RBC (4.40-5.60) X 10*6/uL Hgb (13.0-17.0) g/dL Hct (39.6-50.0) % MCHC (32.0-37.0) g/dL RDW (11.5-14.5) % BUN 36 H (9.0-27.0) mg/dL Creatinine 1.59 H (0.6-1.5) mg/dL Est GFR (CKD-EPI)AfAm (60.0-200.0) Est GFR (CKD-EPI)NonAf (60.0-200.0) BUN/Creatinine Ratio (12.00-20.00) Ratio Glucose 119 H (70-110) mg/dL POC Glucose (mg/dL) 133 H 159 H (75-99) mg/dL Calcium (8.7-10.3) mg/dL 09/26/21 Range/Units 08:09 RBC (4.40-5.60) X 10*6/uL Hgb (13.0-17.0) g/dL Hct (39.6-50.0) % MCHC (32.0-37.0) g/dL RDW (11.5-14.5) % BUN (9.0-27.0) mg/dL Creatinine (0.6-1.5) mg/dL Est GFR (CKD-EPI)AfAm (60.0-200.0) Est GFR (CKD-EPI)NonAf (60.0-200.0) BUN/Creatinine Ratio (12.00-20.00) Ratio Glucose (70-110) mg/dL POC Glucose (mg/dL) 139 H (75-99) mg/dL Calcium (8.7-10.3) mg/dL
[2021-09-27 07:09] LABS: Glucose,Whole Blood 106 mg/dL (75-99)
[2021-09-27] MEDS: IPRATROPIUM 0.5 MG/2.5 ML NEBU INHALATION SCH ×4 (07:27→19:22)
[2021-09-27] MEDS: FORMOTEROL FUMARATE 20 MCG/2 ML NEBU INHALATION SCH ×2 (07:27→19:22)
[2021-09-27] MEDS: INSULIN ASPART (NovoLOG) 100 UNIT/ML VIAL SQ SCH ×3 (08:40→17:42)
[2021-09-27] MEDS: INSULIN DETEMIR (LEVEMIR) 100 UNIT/ML SYR SQ SCH (08:41)
[2021-09-27] MEDS: ACETAMINOPHEN TAB 325 MG TAB PO PRN ×2 (08:42→15:34)
[2021-09-27] MEDS: amLODIPine 5 MG TAB PO SCH (08:42)
[2021-09-27] MEDS: SERTRALINE 25 MG TAB PO SCH (08:43)
[2021-09-27] MEDS: carvediloL 12.5 MG TAB PO SCH ×2 (08:43→21:10)
[2021-09-27] MEDS: CLOPIDOGREL 75 MG TAB PO SCH (08:43)
[2021-09-27] MEDS: SPIRONOLACTONE 25 MG TAB PO SCH (08:44)
[2021-09-27] MEDS: ASPIRIN 81 MG PO SCH (08:44)
[2021-09-27] MEDS: hydrALAZINE HCL 50 MG TAB PO SCH ×3 (08:44→21:09)
[2021-09-27] MEDS: LOSARTAN 50 MG TAB PO SCH (08:44)
[2021-09-27] MEDS: GABAPENTIN 100 MG CAP PO SCH ×2 (08:44→21:09)
[2021-09-27 10:32] LABS: African American GFR (CKD) 50 (>60 ml/min/1.73 sqM); Anion Gap 4 mmol/L; Blood Urea Nitrogen 34 mg/dL (9-20); Calcium 8.4 mg/dL (8.4-10.2); Carbon Dioxide 26 mmol/L (22-30); Chloride 106 mmol/L (98-107); Glucose 200 mg/dL (74-99); Non-African American GFR(CKD) 43 (>60 ml/min/1.73 sqM); Potassium 4.1 mmol/L (3.5-5.1); Sodium 136 mmol/L (137-145)
[2021-09-27] MEDS ORDERED: traMADol 50 MG TAB PO PRN (10:48)
[2021-09-27 11:34] LABS: Glucose,Whole Blood 219 mg/dL (75-99)
[2021-09-27] MEDS: HYDROcodone/APAP 5-325MG 1 EACH TAB PO PRN (11:53)
[2021-09-27 17:30] LABS: Glucose,Whole Blood 75 mg/dL (75-99)
[2021-09-27] MEDS: EZETIMIBE 10 MG TAB PO SCH (21:09)
[2021-09-27] MEDS: QUEtiapine 25 MG TAB PO SCH (21:09)
[2021-09-27] MEDS: ATORVASTATIN 40 MG TAB PO SCH (21:09)
[2021-09-27 22:56] LABS: Glucose,Whole Blood 174 mg/dL (75-99)
--- NOTE | 2021-09-28 02:54 | P.PN ---
Subjective Progress Note Date: 09/27/21 Physical 75-year-old male who was recently admitted with chest pain associated with some dizziness and shortness of breath and brought here for further evaluation. Patient also having some numbness and weakness with exertion and having leg pain. Patient was seen and evaluated by cardiology recommending continuing current medications and to follow-up in the outpatient setting. Patient was also seen and evaluated by vascular surgery as he follows with Dr. Torres and recommending outpatient follow-up. Patient is weak and evaluated by physical therapy recommending subacute rehab and guardian would like him to go to [facility] prior to returning to his [place] house. She denies any chest pain or shortness of breath. Patient is tolerating diet with no reports of nausea or vomiting noted. 09/26/2021 Patient is seen this morning follow-up and continues to be closely monitored. Cardiology following the patient and vascular surgery has evaluated the patient recommending outpatient follow-up. Patient continues with lower extremity bilateral leg pain and weakness and was evaluated by physical therapy recommending subacute rehab. Patient's insurance will require an authorization and awaiting an accepting facility. Legal guardian is aware of this and agreeable with this treatment plan. Patient is requiring more than 2 night hospitalization due to continued symptomatic weakness and leg pain. 09/27/2021 Patient is seen today and continues to have generalized weakness and bilateral lower extremity pain. Will add [place] and continue with Tylenol as well. Patient has been seen and evaluated by cardiology and vascular surgery recommending outpatient follow up. Patient denies any chest pain or shortness of breath. creatinine is 1.56 today. Patient is afebrile. Labs: Sodium is 136, potassium is 4.1, BUN is 34, creatinine is 1.56, calcium is 8.4 Review of systems: Constitutional: No reports of fatigue, fever, or chills Cardiovascular: No reports of chest pain or palpitations Respiratory: No reports of shortness of breath or cough GI: No reports of nausea, vomiting, or diarrhea : No reports of dysuria or retention Neurovascular: reports generalized weakness in bilateral lower extremity pain All medications have been reviewed Active Medications Acetaminophen (Acetaminophen Tab 325 Mg Tab) 650 mg PO Q6HR PRN PRN Reason: Fever and/ or MILD Pain Last Admin: 09/27/21 08:42 Dose: 650 mg Documented by: Hydrocodone Bitart/Acetaminophen (Hydrocodone/Apap 5-325mg 1 Each Tab) 1 each PO Q6HR PRN PRN Reason: Pain Last Admin: 09/27/21 11:53 Dose: 1 each Documented by: Albuterol Sulfate (Albuterol Hfa Inhaler) 2 puff INHALATION RT-Q4H PRN PRN Reason: Shortness Of Breath Amlodipine Besylate (Amlodipine 5 Mg Tab) 5 mg PO DAILY [facility] Last Admin: 09/27/21 08:42 Dose: 5 mg Documented by: Aspirin (Aspirin 81 Mg) 81 mg PO DAILY [facility] Last Admin: 09/27/21 08:44 Dose: 81 mg Documented by: Atorvastatin Calcium (Atorvastatin 40 Mg Tab) 40 mg PO HS [facility] Last Admin: 09/26/21 20:58 Dose: 40 mg Documented by: Carvedilol (Carvedilol 12.5 Mg Tab) 12.5 mg PO BID [facility] Last Admin: 09/27/21 08:43 Dose: 12.5 mg Documented by: Clopidogrel Bisulfate (Clopidogrel 75 Mg Tab) 75 mg PO DAILY [facility] Last Admin: 09/27/21 08:43 Dose: 75 mg Documented by: Ezetimibe (Ezetimibe 10 Mg Tab) 10 mg PO HS [facility] Last Admin: 09/26/21 20:58 Dose: 10 mg Documented by: Formoterol Fumarate (Formoterol Fumarate 20 Mcg/2 Ml Nebu) 20 mcg INHALATION RT-BID [facility] Last Admin: 09/27/21 07:27 Dose: Not Given Documented by: Gabapentin (Gabapentin 100 Mg Cap) 100 mg PO BID [facility] Last Admin: 09/27/21 08:44 Dose: 100 mg Documented by: Hydralazine HCl (Hydralazine Hcl 50 Mg Tab) 100 mg PO TID [facility] Last Admin: 09/27/21 08:44 Dose: 100 mg Documented by: Insulin Aspart (Insulin Aspart (Novolog) 100 Unit/Ml Vial) 5 unit SQ AC-TID [facility] Last Admin: 09/27/21 13:14 Dose: 5 unit Documented by: Insulin Detemir (Insulin Detemir (Levemir) 100 Unit/Ml Syr) 5 unit SQ DAILY@0700 [facility] Last Admin: 09/27/21 08:41 Dose: 5 unit Documented by: Ipratropium [place] (Ipratropium 0.5 Mg/2.5 Ml Nebu) 0.5 mg INHALATION RT-QID [facility] Last Admin: 09/27/21 11:06 Dose: Not Given Documented by: Losartan Potassium (Losartan 50 Mg Tab) 50 mg PO DAILY [facility] Last Admin: 09/27/21 08:44 Dose: 50 mg Documented by: Melatonin (Melatonin 5 Mg Tablet) 5 mg PO HS PRN PRN Reason: Insomnia Nitroglycerin (Nitroglycerin Sl Tabs 0.4 Mg Tab) 0.4 mg SUBLINGUAL Q5M PRN PRN Reason: Chest Pain Oxymetazoline HCl (Oxymetazoline 0.05% Nasl [place] 1 [place] Bottle) 2 spray EA NOSTRIL BID PRN PRN Reason: Congestion Quetiapine Fumarate (Quetiapine 25 Mg Tab) 25 mg PO HS [facility] Last Admin: 09/26/21 20:58 Dose: 25 mg Documented by: Sertraline HCl (Sertraline 25 Mg Tab) 25 mg PO DAILY [facility] Last Admin: 09/27/21 08:43 Dose: 25 mg Documented by: Spironolactone (Spironolactone 25 Mg Tab) 25 mg PO DAILY [facility] Last Admin: 09/27/21 08:44 Dose: 25 mg Documented by: Physical exam: Gen: This is a 75-year-old male awake, alert and oriented 3, well-developed, well-nourished, thin built. Temp is 97.8 F, pulse is 68, respirations are 18, blood pressure is 147/70, oxygen saturation is 100% on room air. HEENT: Head is atraumatic, normocephalic. Pupils equal, round. Sclerae is anicteric. NECK: Supple. No JVD. No lymphadenopathy. No thyromegaly. LUNGS: Diminished breath sounds bilaterally with some scattered rhonchi and no wheezing noted.. No intercostal retractions. HEART: S1, S2 are muffled. ABDOMEN: Soft. Bowel sounds are present. No masses. No tenderness. EXTREMITIES: No pedal edema. No calf tenderness. NEUROLOGICAL: Patient is awake, alert and oriented x3. Cranial nerves 2 through 12 are grossly intact. Assessment: Chest pain, possible unstable angina Bilateral numbness and weakness of lower extremities, possibly back pain and degenerative joint disease, rule out spinal canal stenosis Hypomagnesemia Increased creatinine with chronic kidney disease, stage III anemia, normocytic anemia of chronic disease Mild thrombocytopenia history of coronary artery disease History of congestive heart failure chronic obstructive pulmonary disease diabetes mellitus type 2 hypertension Hyperlipidemia history of myocardial infarction history of degenerative joint disease History of prostate disorder history of severe mitral regurgitation history of ischemic cardiomyopathy history of left bundle branch block Suicidal ideations history of prostate cancer history of Szymanski's palsy history of glaucoma history of insomnia history of chronic hepatitis C History of nicotine dependence Bilateral Peripheral vascular disease and bilateral iliofemoral disease Plan: recommend to continue current medications and management. Patient has been evaluated by cardiology along with vascular surgery recommending outpatient follow-up and continuing with current medications. Patient is having some leg pain and weakness and was evaluated by physical therapy recommending subacute rehab and plan is for ECF prior to returning to [facility] for some physical therapy and strength and mobility. Patient is to follow-up with vascular surgery Dr. Torres in the outpatient setting for the severe bilateral iliofemoral occlusive disease. Patient will also follow up with cardiology in the outpatient setting. Social work following. Authorization will be required by lorene lugo for ECF. Will discuss with social work on authorization progress in am. Will continue to monitor closely. Recommend continue Accu-Cheks before meals and at bedtime and sliding scale along with long-acting insulin. Due to multiple complex medical issues, prognosis is guarded. Possible discharge in 24 hours. Objective - Vital Signs Vital signs: Vital Signs Temp 97.8 F 09/27/21 07:00 Pulse 68 09/27/21 07:00 Resp 18 09/27/21 07:00 BP 147/70 09/27/21 07:00 Pulse Ox 100 09/27/21 07:00 Intake & Output 09/26/21 09/27/21 09/27/21 18:59 06:59 18:59 Intake Total 180 Output Total 1125 Balance -945 Weight 73.5 kg Intake: Oral 180 Output: Urine 1125 Other: Voiding Method Toilet Toilet # Voids 1 - Labs CBC & Chem 7: 09/25/21 06:02 09/27/21 09:59 Labs: Abnormal Lab Results - Last 24 Hours (Table) 09/26/21 09/26/21 09/26/21 Range/Units 11:19 17:29 20:28 POC Glucose (mg/dL) 248 H 107 H 125 H (75-99) mg/dL 09/27/21 Range/Units 07:08 POC Glucose (mg/dL) 106 H (75-99) mg/dL
[2021-09-28 07:40] LABS: Glucose,Whole Blood 227 mg/dL (75-99)
[2021-09-28] MEDS: GABAPENTIN 100 MG CAP PO SCH ×2 (07:53→19:53)
[2021-09-28] MEDS: carvediloL 12.5 MG TAB PO SCH ×2 (07:53→19:54)
[2021-09-28] MEDS: SERTRALINE 25 MG TAB PO SCH (07:53)
[2021-09-28] MEDS: amLODIPine 5 MG TAB PO SCH (07:53)
[2021-09-28] MEDS: ASPIRIN 81 MG PO SCH (07:53)
[2021-09-28] MEDS: CLOPIDOGREL 75 MG TAB PO SCH (07:53)
[2021-09-28] MEDS: INSULIN ASPART (NovoLOG) 100 UNIT/ML VIAL SQ SCH ×3 (07:54→17:34)
[2021-09-28] MEDS: hydrALAZINE HCL 50 MG TAB PO SCH ×3 (07:54→19:55)
[2021-09-28] MEDS: INSULIN DETEMIR (LEVEMIR) 100 UNIT/ML SYR SQ SCH (07:54)
[2021-09-28] MEDS: LOSARTAN 50 MG TAB PO SCH (07:54)
[2021-09-28] MEDS: SPIRONOLACTONE 25 MG TAB PO SCH (07:54)
[2021-09-28] MEDS: HYDROcodone/APAP 5-325MG 1 EACH TAB PO PRN ×3 (07:59→19:54)
[2021-09-28] MEDS: IPRATROPIUM 0.5 MG/2.5 ML NEBU INHALATION SCH ×4 (08:05→19:16)
[2021-09-28] MEDS: FORMOTEROL FUMARATE 20 MCG/2 ML NEBU INHALATION SCH ×2 (08:05→19:16)
[2021-09-28 12:21] LABS: Glucose,Whole Blood 138 mg/dL (75-99)
[2021-09-28 17:36] LABS: Glucose,Whole Blood 187 mg/dL (75-99)
[2021-09-28] MEDS: EZETIMIBE 10 MG TAB PO SCH (19:54)
[2021-09-28] MEDS: ATORVASTATIN 40 MG TAB PO SCH (19:54)
[2021-09-28] MEDS: QUEtiapine 25 MG TAB PO SCH (19:55)
--- NOTE | 2021-09-29 01:21 | P.PN ---
Subjective Progress Note Date: 09/28/21 Physical 75-year-old male who was recently admitted with chest pain associated with some dizziness and shortness of breath and brought here for further evaluation. Patient also having some numbness and weakness with exertion and having leg pain. Patient was seen and evaluated by cardiology recommending continuing current medications and to follow-up in the outpatient setting. Patient was also seen and evaluated by vascular surgery as he follows with Dr. Torres and recommending outpatient follow-up. Patient is weak and evaluated by physical therapy recommending subacute rehab and guardian would like him to go to [facility] prior to returning to his [place] house. She denies any chest pain or shortness of breath. Patient is tolerating diet with no reports of nausea or vomiting noted. 09/26/2021 Patient is seen this morning follow-up and continues to be closely monitored. Cardiology following the patient and vascular surgery has evaluated the patient recommending outpatient follow-up. Patient continues with lower extremity bilateral leg pain and weakness and was evaluated by physical therapy recommending subacute rehab. Patient's insurance will require an authorization and awaiting an accepting facility. Legal guardian is aware of this and agreeable with this treatment plan. Patient is requiring more than 2 night hospitalization due to continued symptomatic weakness and leg pain. 09/27/2021 Patient is seen today and continues to have generalized weakness and bilateral lower extremity pain. Will add [place] and continue with Tylenol as well. Patient has been seen and evaluated by cardiology and vascular surgery recommending outpatient follow up. Patient denies any chest pain or shortness of breath. creatinine is 1.56 today. Patient is afebrile. 09/28/2021 Patient is seen today and physical therapy has reevaluated the patient recommending subacute rehab and social work following and working on finding an accepting facility. All local facilities have refused. Patient continues with weakness pain of lower extremities. No reports of chest pain or shortness of breath. Patient is afebrile. Review of systems: Constitutional: No reports of fatigue, fever, or chills Cardiovascular: No reports of chest pain or palpitations Respiratory: No reports of shortness of breath or cough GI: No reports of nausea, vomiting, or diarrhea : No reports of dysuria or retention Neurovascular: reports generalized weakness and contiinued bilateral lower extremity pain All medications have been reviewed Active Medications Acetaminophen (Acetaminophen Tab 325 Mg Tab) 650 mg PO Q6HR PRN PRN Reason: Fever and/ or MILD Pain Last Admin: 09/27/21 15:34 Dose: 650 mg Documented by: Hydrocodone Bitart/Acetaminophen (Hydrocodone/Apap 5-325mg 1 Each Tab) 1 each PO Q6HR PRN PRN Reason: Pain Last Admin: 09/28/21 19:54 Dose: 1 each Documented by: Albuterol Sulfate (Albuterol Hfa Inhaler) 2 puff INHALATION RT-Q4H PRN PRN Reason: Shortness Of Breath Amlodipine Besylate (Amlodipine 5 Mg Tab) 5 mg PO DAILY [facility] Last Admin: 09/28/21 07:53 Dose: 5 mg Documented by: Aspirin (Aspirin 81 Mg) 81 mg PO DAILY [facility] Last Admin: 09/28/21 07:53 Dose: 81 mg Documented by: Atorvastatin Calcium (Atorvastatin 40 Mg Tab) 40 mg PO HS [facility] Last Admin: 09/28/21 19:54 Dose: 40 mg Documented by: Carvedilol (Carvedilol 12.5 Mg Tab) 12.5 mg PO BID [facility] Last Admin: 09/28/21 19:54 Dose: 12.5 mg Documented by: Clopidogrel Bisulfate (Clopidogrel 75 Mg Tab) 75 mg PO DAILY [facility] Last Admin: 09/28/21 07:53 Dose: 75 mg Documented by: Ezetimibe (Ezetimibe 10 Mg Tab) 10 mg PO HS [facility] Last Admin: 09/28/21 19:54 Dose: 10 mg Documented by: Formoterol Fumarate (Formoterol Fumarate 20 Mcg/2 Ml Nebu) 20 mcg INHALATION RT-BID [facility] Last Admin: 09/28/21 19:16 Dose: Not Given Documented by: Gabapentin (Gabapentin 100 Mg Cap) 100 mg PO BID [facility] Last Admin: 09/28/21 19:53 Dose: 100 mg Documented by: Hydralazine HCl (Hydralazine Hcl 50 Mg Tab) 100 mg PO TID [facility] Last Admin: 09/28/21 19:55 Dose: 100 mg Documented by: Insulin Aspart (Insulin Aspart (Novolog) 100 Unit/Ml Vial) 5 unit SQ AC-TID [facility] Last Admin: 09/28/21 17:34 Dose: 5 unit Documented by: Insulin Detemir (Insulin Detemir (Levemir) 100 Unit/Ml Syr) 5 unit SQ DAILY@0700 [facility] Last Admin: 12/20/21 07:54 Dose: 5 unit Documented by: Ipratropium [place] (Ipratropium 0.5 Mg/2.5 Ml Nebu) 0.5 mg INHALATION RT-QID [facility] Last Admin: 09/28/21 19:16 Dose: Not Given Documented by: Losartan Potassium (Losartan 50 Mg Tab) 50 mg PO DAILY [facility] Last Admin: 09/28/21 07:54 Dose: 50 mg Documented by: Melatonin (Melatonin 5 Mg Tablet) 5 mg PO HS PRN PRN Reason: Insomnia Nitroglycerin (Nitroglycerin Sl Tabs 0.4 Mg Tab) 0.4 mg SUBLINGUAL Q5M PRN PRN Reason: Chest Pain Oxymetazoline HCl (Oxymetazoline 0.05% Nasl [place] 1 [place] Bottle) 2 spray EA NOSTRIL BID PRN PRN Reason: Congestion Quetiapine Fumarate (Quetiapine 25 Mg Tab) 25 mg PO HS [facility] Last Admin: 09/28/21 19:55 Dose: 25 mg Documented by: Sertraline HCl (Sertraline 25 Mg Tab) 25 mg PO DAILY [facility] Last Admin: 09/28/21 07:53 Dose: 25 mg Documented by: Spironolactone (Spironolactone 25 Mg Tab) 25 mg PO DAILY [facility] Last Admin: 09/28/21 07:54 Dose: 25 mg Documented by: Physical exam: Gen: This is a 75-year-old male awake, alert and oriented 3, well-developed, well-nourished, thin built. HEENT: Head is atraumatic, normocephalic. Pupils equal, round. Sclerae is anicteric. NECK: Supple. No JVD. No lymphadenopathy. No thyromegaly. LUNGS: Diminished breath sounds bilaterally with some scattered rhonchi and no wheezing noted.. No intercostal retractions. HEART: S1, S2 are muffled. ABDOMEN: Soft. Bowel sounds are present. No masses. No tenderness. EXTREMITIES: No pedal edema. No calf tenderness. NEUROLOGICAL: Patient is awake, alert and oriented x3. Cranial nerves 2 through 12 are grossly intact. Assessment: Chest pain, possible unstable angina Bilateral numbness and weakness of lower extremities, possibly back pain and degenerative joint disease, rule out spinal canal stenosis Hypomagnesemia, improved Increased creatinine with chronic kidney disease, stage III anemia, normocytic anemia of chronic disease Mild thrombocytopenia history of coronary artery disease History of congestive heart failure chronic obstructive pulmonary disease diabetes mellitus type 2 hypertension Hyperlipidemia history of chronic hepatitis C History of nicotine dependence Bilateral Peripheral vascular disease and bilateral iliofemoral disease Plan: recommend to continue current medications and management. Patient has been evaluated by cardiology along with vascular surgery recommending outpatient follow-up and continuing with current medications. Patient is having some continued leg pain and weakness and was evaluated by physical therapy recommending subacute rehab and plan is for ECF prior to returning to [facility] for some physical therapy and strength and mobility. Social work following and attempting to find an accepting facility for continued PT/OT therapy. Patient is to follow-up with vascular surgery Dr. Torres in the outpatient setting for the severe bilateral iliofemoral occlusive disease. Patient will also follow up with cardiology in the outpatient setting. Authorization was submitted to insurance for ECF. Will discuss with social work on authorization progress in am. Will continue to monitor closely. Recommend continue Accu-Cheks before meals and at bedtime and sliding scale along with long-acting insulin. Due to multiple complex medical issues, prognosis is guarded. Possible discharge in 24-48 hours. Objective - Vital Signs Vital signs: Vital Signs Temp 98.6 F 09/28/21 21:06 Pulse 74 09/28/21 21:06 Resp 15 09/28/21 21:06 BP 166/68 09/28/21 21:06 Pulse Ox 98 09/28/21 21:06 Intake & Output 09/28/21 09/28/21 09/29/21 06:59 18:59 06:59 Weight 72 kg Other: Voiding Method Toilet Toilet Toilet # Voids 1 2 2 - Labs CBC & Chem 7: 09/25/21 06:02 09/27/21 09:59 Labs: Abnormal Lab Results - Last 24 Hours (Table) 09/28/21 09/28/21 09/28/21 Range/Units 07:37 12: 17:32 POC Glucose (mg/dL) 227 H 138 H 187 H (75-99) mg/dL
[2021-09-29 07:10] LABS: Glucose,Whole Blood 120 mg/dL (75-99)
[2021-09-29] MEDS: FORMOTEROL FUMARATE 20 MCG/2 ML NEBU INHALATION SCH ×2 (07:58→21:09)
[2021-09-29] MEDS: IPRATROPIUM 0.5 MG/2.5 ML NEBU INHALATION SCH ×4 (07:59→21:09)
[2021-09-29] MEDS: LOSARTAN 50 MG TAB PO SCH (09:11)
[2021-09-29] MEDS: ASPIRIN 81 MG PO SCH (09:11)
[2021-09-29] MEDS: amLODIPine 5 MG TAB PO SCH (09:11)
[2021-09-29] MEDS: SPIRONOLACTONE 25 MG TAB PO SCH (09:11)
[2021-09-29] MEDS: GABAPENTIN 100 MG CAP PO SCH ×2 (09:11→20:10)
[2021-09-29] MEDS: hydrALAZINE HCL 50 MG TAB PO SCH ×3 (09:11→20:10)
[2021-09-29] MEDS: CLOPIDOGREL 75 MG TAB PO SCH (09:11)
[2021-09-29] MEDS: carvediloL 12.5 MG TAB PO SCH ×2 (09:11→20:10)
[2021-09-29] MEDS: SERTRALINE 25 MG TAB PO SCH (09:12)
[2021-09-29] MEDS: INSULIN ASPART (NovoLOG) 100 UNIT/ML VIAL SQ SCH ×3 (09:13→17:45)
[2021-09-29] MEDS: INSULIN DETEMIR (LEVEMIR) 100 UNIT/ML SYR SQ SCH (09:13)
[2021-09-29] MEDS: HYDROcodone/APAP 5-325MG 1 EACH TAB PO PRN (09:17)
[2021-09-29 12:05] LABS: Glucose,Whole Blood 131 mg/dL (75-99)
[2021-09-29 17:17] LABS: Glucose,Whole Blood 186 mg/dL (75-99)
[2021-09-29] MEDS: QUEtiapine 25 MG TAB PO SCH (20:09)
[2021-09-29] MEDS: ATORVASTATIN 40 MG TAB PO SCH (20:10)
[2021-09-29] MEDS: EZETIMIBE 10 MG TAB PO SCH (20:10)
[2021-09-29] MEDS: MELATONIN 5 MG TABLET PO PRN (20:15)
[2021-09-29 21:02] LABS: Glucose,Whole Blood 140 mg/dL (75-99)
[2021-09-30 07:18] LABS: Glucose,Whole Blood 121 mg/dL (75-99)
[2021-09-30] MEDS: INSULIN ASPART (NovoLOG) 100 UNIT/ML VIAL SQ SCH ×3 (08:10→17:58)
[2021-09-30] MEDS: CLOPIDOGREL 75 MG TAB PO SCH (08:11)
[2021-09-30] MEDS: INSULIN DETEMIR (LEVEMIR) 100 UNIT/ML SYR SQ SCH (08:11)
[2021-09-30] MEDS: LOSARTAN 50 MG TAB PO SCH (08:12)
[2021-09-30] MEDS: SPIRONOLACTONE 25 MG TAB PO SCH (08:12)
[2021-09-30] MEDS: hydrALAZINE HCL 50 MG TAB PO SCH ×3 (08:12→20:54)
[2021-09-30] MEDS: amLODIPine 5 MG TAB PO SCH (08:12)
[2021-09-30] MEDS: GABAPENTIN 100 MG CAP PO SCH ×2 (08:12→20:54)
[2021-09-30] MEDS: SERTRALINE 25 MG TAB PO SCH (08:12)
[2021-09-30] MEDS: carvediloL 12.5 MG TAB PO SCH ×2 (08:13→20:54)
[2021-09-30] MEDS: ASPIRIN 81 MG PO SCH (08:13)
[2021-09-30] MEDS: FORMOTEROL FUMARATE 20 MCG/2 ML NEBU INHALATION SCH ×2 (08:27→20:46)
[2021-09-30] MEDS: IPRATROPIUM 0.5 MG/2.5 ML NEBU INHALATION SCH ×3 (08:28→20:46)
--- NOTE | 2021-09-30 09:07 | P.PN ---
Subjective Progress Note Date: 09/29/21 Physical 75-year-old male who was recently admitted with chest pain associated with some dizziness and shortness of breath and brought here for further evaluation. Patient also having some numbness and weakness with exertion and having leg pain. Patient was seen and evaluated by cardiology recommending continuing current medications and to follow-up in the outpatient setting. Patient was also seen and evaluated by vascular surgery as he follows with Dr. Torres and recommending outpatient follow-up. Patient is weak and evaluated by physical therapy recommending subacute rehab and guardian would like him to go to [facility] prior to returning to his [place] house. She denies any chest pain or shortness of breath. Patient is tolerating diet with no reports of nausea or vomiting noted. 09/26/2021 Patient is seen this morning follow-up and continues to be closely monitored. Cardiology following the patient and vascular surgery has evaluated the patient recommending outpatient follow-up. Patient continues with lower extremity bilateral leg pain and weakness and was evaluated by physical therapy recommending subacute rehab. Patient's insurance will require an authorization and awaiting an accepting facility. Legal guardian is aware of this and agreeable with this treatment plan. Patient is requiring more than 2 night hospitalization due to continued symptomatic weakness and leg pain. 09/27/2021 Patient is seen today and continues to have generalized weakness and bilateral lower extremity pain. Will add [place] and continue with Tylenol as well. Patient has been seen and evaluated by cardiology and vascular surgery recommending outpatient follow up. Patient denies any chest pain or shortness of breath. creatinine is 1.56 today. Patient is afebrile. 09/28/2021 Patient is seen today and physical therapy has reevaluated the patient recommending subacute rehab and social work following and working on finding an accepting facility. All local facilities have refused. Patient continues with weakness pain of lower extremities. No reports of chest pain or shortness of breath. Patient is afebrile. 09/29/2021 Patient is seen and evaluated and follow-up this morning no acute issues overnight. Patient continues to have pain in the lower extremities with weakness and has been working with physical therapy daily. Patient is being followed by social work and working on [facility] for rehab for strength and mobility. Will continue to monitor closely with possible discharge in 24-48 hours. Review of systems: Constitutional: No reports of fatigue, fever, or chills Cardiovascular: No reports of chest pain or palpitations Respiratory: No reports of shortness of breath or cough GI: No reports of nausea, vomiting, or diarrhea : No reports of dysuria or retention Neurovascular: reports generalized weakness and contiinued bilateral lower extremity pain All medications have been reviewed Physical exam: Gen: This is a 75-year-old male awake, alert and oriented 3, well-developed, well-nourished, thin built. HEENT: Head is atraumatic, normocephalic. Pupils equal, round. Sclerae is anicteric. NECK: Supple. No JVD. No lymphadenopathy. No thyromegaly. LUNGS: Diminished breath sounds bilaterally with some scattered rhonchi and no wheezing noted.. No intercostal retractions. HEART: S1, S2 are muffled. ABDOMEN: Soft. Bowel sounds are present. No masses. No tenderness. EXTREMITIES: No pedal edema. No calf tenderness. NEUROLOGICAL: Patient is awake, alert and oriented x3. Cranial nerves 2 through 12 are grossly intact. Assessment: Chest pain, possible unstable angina Bilateral numbness and weakness of lower extremities, possibly back pain and degenerative joint disease, rule out spinal canal stenosis Hypomagnesemia, improved Increased creatinine with chronic kidney disease, stage III anemia, normocytic anemia of chronic disease Mild thrombocytopenia history of coronary artery disease History of congestive heart failure chronic obstructive pulmonary disease diabetes mellitus type 2 hypertension Hyperlipidemia history of chronic hepatitis C History of nicotine dependence Bilateral Peripheral vascular disease and bilateral iliofemoral disease Plan: recommend to continue current medications and management. Patient has been evaluated by cardiology along with vascular surgery recommending outpatient follow-up and continuing with current medications. Patient continues to report leg pain and weakness and was evaluated by physical therapy recommending subacute rehab. Social work following and has found an accepting facility although will require insurance authorization which has been submitted and pending at this time.. Patient is to follow-up with vascular surgery Dr. Torres in the outpatient setting for the severe bilateral iliofemoral occlusive disease. Patient will also follow up with cardiology in the outpatient setting. Recommend continue Accu-Cheks before meals and at bedtime and sliding scale along with long-acting insulin. Due to multiple complex medical issues, prognosis is guarded. Possible discharge in 24-48 hours. Objective - Vital Signs Vital signs: Vital Signs Temp 97.7 F 09/29/21 07:00 Pulse 63 09/29/21 07:00 Resp 18 09/29/21 07:00 BP 161/75 09/29/21 07:00 Pulse Ox 100 09/29/21 07:00 Intake & Output 09/28/21 09/29/21 09/29/21 18:59 06:59 18:59 Intake Total 222 Output Total 550 Balance -328 Weight 72 kg Intake: Oral 222 Output: Urine 550 Other: Voiding Method Toilet Toilet # Voids 2 1 - Labs CBC & Chem 7: 09/25/21 06:02 09/27/21 09:59 Labs: Abnormal Lab Results - Last 24 Hours (Table) 09/28/21 09/28/21 09/29/21 Range/Units 12:17 17:32 07:09 POC Glucose (mg/dL) 138 H 187 H 120 H (75-99) mg/dL
[2021-09-30 12:01] LABS: Glucose,Whole Blood 233 mg/dL (75-99)
--- NOTE | 2021-09-30 16:20 | P.PN ---
Subjective Progress Note Date: 09/30/21 Physical 75-year-old male who was recently admitted with chest pain associated with some dizziness and shortness of breath and brought here for further evaluation. Patient also having some numbness and weakness with exertion and having leg pain. Patient was seen and evaluated by cardiology recommending continuing current medications and to follow-up in the outpatient setting. Patient was also seen and evaluated by vascular surgery as he follows with Dr. Torres and recommending outpatient follow-up. Patient is weak and evaluated by physical therapy recommending subacute rehab and guardian would like him to go to [facility] prior to returning to his [place] house. She denies any chest pain or shortness of breath. Patient is tolerating diet with no reports of nausea or vomiting noted. 09/26/2021 Patient is seen this morning follow-up and continues to be closely monitored. Cardiology following the patient and vascular surgery has evaluated the patient recommending outpatient follow-up. Patient continues with lower extremity bilateral leg pain and weakness and was evaluated by physical therapy recommending subacute rehab. Patient's insurance will require an authorization and awaiting an accepting facility. Legal guardian is aware of this and agreeable with this treatment plan. Patient is requiring more than 2 night hospitalization due to continued symptomatic weakness and leg pain. 09/27/2021 Patient is seen today and continues to have generalized weakness and bilateral lower extremity pain. Will add [place] and continue with Tylenol as well. Patient has been seen and evaluated by cardiology and vascular surgery recommending outpatient follow up. Patient denies any chest pain or shortness of breath. creatinine is 1.56 today. Patient is afebrile. 09/28/2021 Patient is seen today and physical therapy has reevaluated the patient recommending subacute rehab and social work following and working on finding an accepting facility. All local facilities have refused. Patient continues with weakness pain of lower extremities. No reports of chest pain or shortness of breath. Patient is afebrile. 09/29/2021 Patient is seen and evaluated and follow-up this morning no acute issues overnight. Patient continues to have pain in the lower extremities with weakness and has been working with physical therapy daily. Patient is being followed by social work and working on [facility] for rehab for strength and mobility. Will continue to monitor closely with possible discharge in 24-48 hours. 09/30/2021 Patient seen today continues to have weakness and requesting pain medications although reports no worsening. Patient denies any chest pain or shortness of breath and is tolerating diet. Patient has been accepted at [facility] although continuing to wait for authorization from insurance. Review of systems: Constitutional: No reports of fatigue, fever, or chills Cardiovascular: No reports of chest pain or palpitations Respiratory: No reports of shortness of breath or cough GI: No reports of nausea, vomiting, or diarrhea : No reports of dysuria or retention Neurovascular: reports generalized weakness and contiinued bilateral lower extremity pain All medications have been reviewed Active Medications Acetaminophen (Acetaminophen Tab 325 Mg Tab) 650 mg PO Q6HR PRN PRN Reason: Fever and/ or MILD Pain Last Admin: 09/27/21 15:34 Dose: 650 mg Documented by: Hydrocodone Bitart/Acetaminophen (Hydrocodone/Apap 5-325mg 1 Each Tab) 1 each PO Q6HR PRN PRN Reason: Pain Last Admin: 09/29/21 09:17 Dose: 1 each Documented by: Albuterol Sulfate (Albuterol Hfa Inhaler) 2 puff INHALATION RT-Q4H PRN PRN Reason: Shortness Of Breath Amlodipine Besylate (Amlodipine 5 Mg Tab) 5 mg PO DAILY [facility] Last Admin: 09/30/21 08:12 Dose: 5 mg Documented by: Aspirin (Aspirin 81 Mg) 81 mg PO DAILY [facility] Last Admin: 09/30/21 08:13 Dose: 81 mg Documented by: Atorvastatin Calcium (Atorvastatin 40 Mg Tab) 40 mg PO [facility] Last Admin: 09/29/21 20:10 Dose: 40 mg Documented by: Carvedilol (Carvedilol 12.5 Mg Tab) 12.5 mg PO BID [facility] Last Admin: 09/30/21 08:13 Dose: 12.5 mg Documented by: Clopidogrel Bisulfate (Clopidogrel 75 Mg Tab) 75 mg PO DAILY [facility] Last Admin: 09/30/21 08:11 Dose: 75 mg Documented by: Ezetimibe (Ezetimibe 10 Mg Tab) 10 mg PO [facility] Last Admin: 09/29/21 20:10 Dose: 10 mg Documented by: Formoterol Fumarate (Formoterol Fumarate 20 Mcg/2 Ml Nebu) 20 mcg INHALATION RT-BID [facility] Last Admin: 09/30/21 08:27 Dose: Not Given Documented by: Gabapentin (Gabapentin 100 Mg Cap) 100 mg PO BID [facility] Last Admin: 09/30/21 08:12 Dose: 100 mg Documented by: Hydralazine HCl (Hydralazine Hcl 50 Mg Tab) 100 mg PO TID [facility] Last Admin: 09/30/21 08:12 Dose: 100 mg Documented by: Insulin Aspart (Insulin Aspart (Novolog) 100 Unit/Ml Vial) 5 unit SQ AC-TID [facility] Last Admin: 09/30/21 13:21 Dose: 5 unit Documented by: Insulin Detemir (Insulin Detemir (Levemir) 100 Unit/Ml Syr) 5 unit SQ DAILY@0700 [facility] Last Admin: 09/30/21 08:11 Dose: 5 unit Documented by: Ipratropium [place] (Ipratropium 0.5 Mg/2.5 Ml Nebu) 0.5 mg INHALATION RT-QID [facility] Last Admin: 09/30/21 08:28 Dose: Not Given Documented by: Losartan Potassium (Losartan 50 Mg Tab) 50 mg PO DAILY [facility] Last Admin: 09/30/21 08:12 Dose: 50 mg Documented by: Melatonin (Melatonin 5 Mg Tablet) 5 mg PO HS PRN PRN Reason: Insomnia Last Admin: 09/29/21 20:15 Dose: 5 mg Documented by: Nitroglycerin (Nitroglycerin Sl Tabs 0.4 Mg Tab) 0.4 mg SUBLINGUAL Q5M PRN PRN Reason: Chest Pain Oxymetazoline HCl (Oxymetazoline 0.05% Nasl [place] 1 [place] Bottle) 2 spray EA NOSTRIL BID PRN PRN Reason: Congestion Quetiapine Fumarate (Quetiapine 25 Mg Tab) 25 mg PO HS [facility] Last Admin: 09/29/21 20:09 Dose: 25 mg Documented by: Sertraline HCl (Sertraline 25 Mg Tab) 25 mg PO DAILY [facility] Last Admin: 09/30/21 08:12 Dose: 25 mg Documented by: Spironolactone (Spironolactone 25 Mg Tab) 25 mg PO DAILY [facility] Last Admin: 09/30/21 08:12 Dose: 25 mg Documented by: Physical exam: Gen: This is a 75-year-old male awake, alert and oriented 3, well-developed, well-nourished, thin built. HEENT: Head is atraumatic, normocephalic. Pupils equal, round. Sclerae is anicteric. NECK: Supple. No JVD. No lymphadenopathy. No thyromegaly. LUNGS: Diminished breath sounds bilaterally with some scattered rhonchi and no wheezing noted.. No intercostal retractions. HEART: S1, S2 are muffled. ABDOMEN: Soft. Bowel sounds are present. No masses. No tenderness. EXTREMITIES: No pedal edema. No calf tenderness. NEUROLOGICAL: Patient is awake, alert and oriented x3. Cranial nerves 2 through 12 are grossly intact. Assessment: Chest pain, possible unstable angina Bilateral numbness and weakness of lower extremities, possibly back pain and degenerative joint disease, rule out spinal canal stenosis Hypomagnesemia, improved Increased creatinine with chronic kidney disease, stage III anemia, normocytic anemia of chronic disease Mild thrombocytopenia history of coronary artery disease History of congestive heart failure chronic obstructive pulmonary disease diabetes mellitus type 2 hypertension Hyperlipidemia history of chronic hepatitis C History of nicotine dependence Bilateral Peripheral vascular disease and bilateral iliofemoral disease Plan: recommend to continue current medications and management. Patient has been evaluated by cardiology along with vascular surgery recommending outpatient follow-up and continuing with current medications. Patient continues to report leg pain and weakness and was evaluated by physical therapy recommending subacute rehab. Social work following and has found an accepting facility at [facility] although will require insurance authorization which has been submitted and pending at this time.. Patient is to follow-up with vascular surgery Dr. Torres in the outpatient setting for the severe bilateral iliofemoral occlusive disease. Patient will also follow up with cardiology in the outpatient setting. Recommend continue Accu-Cheks before meals and at bedtime and sliding scale along with long-acting insulin. Objective - Vital Signs Vital signs: Vital Signs Temp 98.3 F 09/30/21 07:00 Pulse 63 09/30/21 07:00 Resp 18 09/30/21 07:00 BP 165/74 09/30/21 07:00 Pulse Ox 98 09/30/21 07:00 Intake & Output 09/29/21 09/30/21 09/30/21 18:59 06:59 18:59 Intake Total 680 240 Output Total 850 Balance -170 240 Intake: Oral 680 240 Output: Urine 850 Other: Voiding Method Toilet Toilet # Voids 2 - Labs CBC & Chem 7: 09/25/21 06:02 09/27/21 09:59 Labs: Abnormal Lab Results - Last 24 Hours (Table) 09/29/21 09/29/21 09/29/21 Range/Units 12:04 17:15 20:57 POC Glucose (mg/dL) 131 H 186 H 140 H (75-99) mg/dL 09/30/21 Range/Units 07:14 POC Glucose (mg/dL) 121 H (75-99) mg/dL
[2021-09-30 17:15] LABS: Glucose,Whole Blood 152 mg/dL (75-99)
[2021-09-30] MEDS: HYDROcodone/APAP 5-325MG 1 EACH TAB PO PRN (18:02)
[2021-09-30 20:31] LABS: Glucose,Whole Blood 150 mg/dL (75-99)
[2021-09-30] MEDS: QUEtiapine 25 MG TAB PO SCH (20:54)
[2021-09-30] MEDS: ATORVASTATIN 40 MG TAB PO SCH (20:54)
[2021-09-30] MEDS: EZETIMIBE 10 MG TAB PO SCH (20:54)
[2021-09-30] MEDS: MELATONIN 5 MG TABLET PO PRN (20:58)
[2021-10-01] MEDS: INSULIN ASPART (NovoLOG) 100 UNIT/ML VIAL SQ SCH ×3 (07:09→18:10)
[2021-10-01 07:18] LABS: Glucose,Whole Blood 112 mg/dL (75-99)
[2021-10-01] MEDS: IPRATROPIUM 0.5 MG/2.5 ML NEBU INHALATION SCH ×4 (08:44→20:35)
[2021-10-01] MEDS: FORMOTEROL FUMARATE 20 MCG/2 ML NEBU INHALATION SCH ×2 (08:44→20:35)
[2021-10-01] MEDS: SERTRALINE 25 MG TAB PO SCH (09:20)
[2021-10-01] MEDS: SPIRONOLACTONE 25 MG TAB PO SCH (09:20)
[2021-10-01] MEDS: GABAPENTIN 100 MG CAP PO SCH ×2 (09:20→19:30)
[2021-10-01] MEDS: CLOPIDOGREL 75 MG TAB PO SCH (09:20)
[2021-10-01] MEDS: ASPIRIN 81 MG PO SCH (09:20)
[2021-10-01] MEDS: INSULIN DETEMIR (LEVEMIR) 100 UNIT/ML SYR SQ SCH (09:20)
[2021-10-01] MEDS: amLODIPine 5 MG TAB PO SCH (09:20)
[2021-10-01] MEDS: LOSARTAN 50 MG TAB PO SCH (09:20)
[2021-10-01] MEDS: carvediloL 12.5 MG TAB PO SCH ×2 (09:20→19:30)
[2021-10-01] MEDS: hydrALAZINE HCL 50 MG TAB PO SCH ×3 (09:20→19:30)
[2021-10-01] MEDS: HYDROcodone/APAP 5-325MG 1 EACH TAB PO PRN ×2 (09:27→19:34)
[2021-10-01 12:00] VITALS: BMI 22.7
[2021-10-01 12:05] LABS: Glucose,Whole Blood 198 mg/dL (75-99)
--- NOTE | 2021-10-01 14:26 | P.PN ---
Subjective 75-year-old male who was recently admitted with chest pain associated with some dizziness and shortness of breath and brought here for further evaluation. Patient also having some numbness and weakness with exertion and having leg pain. Patient was seen and evaluated by cardiology recommending continuing current medications and to follow-up in the outpatient setting. Patient was also seen and evaluated by vascular surgery as he follows with Dr. Torres and recommending outpatient follow-up. Patient is weak and evaluated by physical therapy recommending subacute rehab and guardian would like him to go to [facility] prior to returning to his [place] house. She denies any chest pain or shortness of breath. Patient is tolerating diet with no reports of nausea or vomiting noted. 09/26/2021 Patient is seen this morning follow-up and continues to be closely monitored. Cardiology following the patient and vascular surgery has evaluated the patient recommending outpatient follow-up. Patient continues with lower extremity bilateral leg pain and weakness and was evaluated by physical therapy recommending subacute rehab. Patient's insurance will require an authorization and awaiting an accepting facility. Legal guardian is aware of this and agreeable with this treatment plan. Patient is requiring more than 2 night hospitalization due to continued symptomatic weakness and leg pain. 09/27/2021 Patient is seen today and continues to have generalized weakness and bilateral lower extremity pain. Will add [place] and continue with Tylenol as well. Patient has been seen and evaluated by cardiology and vascular surgery recommending outpatient follow up. Patient denies any chest pain or shortness of breath. creatinine is 1.56 today. Patient is afebrile. 09/28/2021 Patient is seen today and physical therapy has reevaluated the patient recommending subacute rehab and social work following and working on finding an accepting facility. All local facilities have refused. Patient continues with weakness pain of lower extremities. No reports of chest pain or shortness of breath. Patient is afebrile. 09/29/2021 Patient is seen and evaluated and follow-up this morning no acute issues overnight. Patient continues to have pain in the lower extremities with weakness and has been working with physical therapy daily. Patient is being followed by social work and working on [facility] for rehab for strength and mobility. Will continue to monitor closely with possible discharge in 24-48 hours. 09/30/2021 Patient seen today continues to have weakness and requesting pain medications although reports no worsening. Patient denies any chest pain or shortness of breath and is tolerating diet. Patient has been accepted at [facility] although continuing to wait for authorization from insurance. 10/01/2021 Patient doesn't have any significant events physical therapy and occupational therapy are recommending recommending subacute rehabilitation awaiting authorization from his insurance company Review of systems: Constitutional: No reports of fatigue, fever, or chills Cardiovascular: No reports of chest pain or palpitations Respiratory: No reports of shortness of breath or cough GI: No reports of nausea, vomiting, or diarrhea : No reports of dysuria or retention Neurovascular: reports generalized weakness and contiinued bilateral lower extremity pain All medications have been reviewed Physical exam: Gen: This is a 75-year-old male awake, alert and oriented 3, well-developed, well-nourished, thin built. HEENT: Head is atraumatic, normocephalic. Pupils equal, round. Sclerae is anicteric. NECK: Supple. No JVD. No lymphadenopathy. No thyromegaly. LUNGS: Diminished breath sounds bilaterally with some scattered rhonchi and no wheezing noted.. No intercostal retractions. HEART: S1, S2 are muffled. ABDOMEN: Soft. Bowel sounds are present. No masses. No tenderness. EXTREMITIES: No pedal edema. No calf tenderness. NEUROLOGICAL: Patient is awake, alert and oriented x3. Cranial nerves 2 through 12 are grossly intact. Assessment: Chest pain, doubt acute coronary syndromes Bilateral numbness and weakness of lower extremities, possibly back pain and degenerative joint disease, possibly of spinal stenosis physical therapy and outpatient therapy evaluated the patient according to his subacute rehabitation Hypomagnesemia, improved h chronic kidney disease, stage III anemia, normocytic anemia of chronic disease coronary artery disease chronic obstructive pulmonary disease diabetes mellitus type 2 hypertension Hyperlipidemia chronic hepatitis C Bilateral Peripheral vascular disease and bilateral iliofemoral disease Objective - Vital Signs Vital signs: Vital Signs Temp 98 F 10/01/21 07:00 Pulse 68 10/01/21 08:55 Resp 18 10/01/21 08:00 BP 158/81 10/01/21 07:00 Pulse Ox 100 10/01/21 07:00 Intake & Output 09/30/21 10/01/21 10/01/21 18:59 06:59 18:59 Intake Total 240 380 Output Total 300 Balance 240 80 Weight 72 kg Intake: Oral 240 380 Output: Urine 300 Other: Voiding Method Toilet Toilet # Voids 3 2 1 # Bowel Movements 1 - Labs CBC & Chem 7: 09/25/21 06:02 09/27/21 09:59 Labs: Abnormal Lab Results - Last 24 Hours (Table) 09/30/21 09/30/21 10/01/21 Range/Units 17:09 20:29 07:01 POC Glucose (mg/dL) 152 H 150 H 112 H (75-99) mg/dL 10/01/21 Range/Units 11:56 POC Glucose (mg/dL) 198 H (75-99) mg/dL
[2021-10-01 17:07] LABS: Glucose,Whole Blood 67 mg/dL (75-99)
[2021-10-01 17:15] LABS: Glucose,Whole Blood 117 mg/dL (75-99)
[2021-10-01] MEDS: ATORVASTATIN 40 MG TAB PO SCH (19:30)
[2021-10-01] MEDS: QUEtiapine 25 MG TAB PO SCH (19:30)
[2021-10-01] MEDS: EZETIMIBE 10 MG TAB PO SCH (19:30)
[2021-10-01 19:59] LABS: Glucose,Whole Blood 155 mg/dL (75-99)
[2021-10-01] MEDS: MELATONIN 5 MG TABLET PO PRN (21:59)
[2021-10-02 07:34] LABS: Glucose,Whole Blood 89 mg/dL (75-99)
[2021-10-02] MEDS: IPRATROPIUM 0.5 MG/2.5 ML NEBU INHALATION SCH ×4 (07:56→19:17)
[2021-10-02] MEDS: FORMOTEROL FUMARATE 20 MCG/2 ML NEBU INHALATION SCH ×2 (07:56→19:16)
[2021-10-02] MEDS: INSULIN ASPART (NovoLOG) 100 UNIT/ML VIAL SQ SCH ×3 (08:04→17:53)
[2021-10-02] MEDS: CLOPIDOGREL 75 MG TAB PO SCH (08:05)
[2021-10-02] MEDS: carvediloL 12.5 MG TAB PO SCH ×2 (08:05→21:52)
[2021-10-02] MEDS: amLODIPine 5 MG TAB PO SCH (08:05)
[2021-10-02] MEDS: hydrALAZINE HCL 50 MG TAB PO SCH ×3 (08:05→21:52)
[2021-10-02] MEDS: SERTRALINE 25 MG TAB PO SCH (08:05)
[2021-10-02] MEDS: ASPIRIN 81 MG PO SCH (08:05)
[2021-10-02] MEDS: GABAPENTIN 100 MG CAP PO SCH ×2 (08:06→21:52)
[2021-10-02] MEDS: INSULIN DETEMIR (LEVEMIR) 100 UNIT/ML SYR SQ SCH (08:06)
[2021-10-02] MEDS: LOSARTAN 50 MG TAB PO SCH (08:08)
[2021-10-02] MEDS: SPIRONOLACTONE 25 MG TAB PO SCH (08:08)
--- NOTE | 2021-10-02 11:00 | P.PN ---
Subjective 75-year-old male who was recently admitted with chest pain associated with some dizziness and shortness of breath and brought here for further evaluation. Patient also having some numbness and weakness with exertion and having leg pain. Patient was seen and evaluated by cardiology recommending continuing current medications and to follow-up in the outpatient setting. Patient was also seen and evaluated by vascular surgery as he follows with Dr. Torres and recommending outpatient follow-up. Patient is weak and evaluated by physical therapy recommending subacute rehab and guardian would like him to go to [facility] prior to returning to his [place] house. She denies any chest pain or shortness of breath. Patient is tolerating diet with no reports of nausea or vomiting noted. 09/26/2021 Patient is seen this morning follow-up and continues to be closely monitored. Cardiology following the patient and vascular surgery has evaluated the patient recommending outpatient follow-up. Patient continues with lower extremity bilateral leg pain and weakness and was evaluated by physical therapy recommending subacute rehab. Patient's insurance will require an authorization and awaiting an accepting facility. Legal guardian is aware of this and agreeable with this treatment plan. Patient is requiring more than 2 night hospitalization due to continued symptomatic weakness and leg pain. 09/27/2021 Patient is seen today and continues to have generalized weakness and bilateral lower extremity pain. Will add [place] and continue with Tylenol as well. Patient has been seen and evaluated by cardiology and vascular surgery recommending outpatient follow up. Patient denies any chest pain or shortness of breath. creatinine is 1.56 today. Patient is afebrile. 09/28/2021 Patient is seen today and physical therapy has reevaluated the patient recommending subacute rehab and social work following and working on finding an accepting facility. All local facilities have refused. Patient continues with weakness pain of lower extremities. No reports of chest pain or shortness of breath. Patient is afebrile. 09/29/2021 Patient is seen and evaluated and follow-up this morning no acute issues overnight. Patient continues to have pain in the lower extremities with weakness and has been working with physical therapy daily. Patient is being followed by social work and working on [facility] for rehab for strength and mobility. Will continue to monitor closely with possible discharge in 24-48 hours. 09/30/2021 Patient seen today continues to have weakness and requesting pain medications although reports no worsening. Patient denies any chest pain or shortness of breath and is tolerating diet. Patient has been accepted at [facility] although continuing to wait for authorization from insurance. 10/01/2021 Patient doesn't have any significant events physical therapy and occupational therapy are recommending recommending subacute rehabilitation awaiting authorization from his insurance company Oct 02 2021 Still awaiting authorization from the insurance Review of systems: Constitutional: No reports of fatigue, fever, or chills Cardiovascular: No reports of chest pain or palpitations Respiratory: No reports of shortness of breath or cough GI: No reports of nausea, vomiting, or diarrhea : No reports of dysuria or retention Neurovascular: reports generalized weakness and contiinued bilateral lower extremity pain All medications have been reviewed Physical exam: Gen: This is a 75-year-old male awake, alert and oriented 3, well-developed, well-nourished, thin built. HEENT: Head is atraumatic, normocephalic. Pupils equal, round. Sclerae is anicteric. NECK: Supple. No JVD. No lymphadenopathy. No thyromegaly. LUNGS: Diminished breath sounds bilaterally with some scattered rhonchi and no wheezing noted.. No intercostal retractions. HEART: S1, S2 are muffled. ABDOMEN: Soft. Bowel sounds are present. No masses. No tenderness. EXTREMITIES: No pedal edema. No calf tenderness. NEUROLOGICAL: Patient is awake, alert and oriented x3. Cranial nerves 2 through 12 are grossly intact. Assessment: Chest pain, doubt acute coronary syndromes Bilateral numbness and weakness of lower extremities, possibly back pain and degenerative joint disease, possibly of spinal stenosis physical therapy and outpatient therapy evaluated the patient according to his subacute rehabitation Hypomagnesemia, improved h chronic kidney disease, stage III anemia, normocytic anemia of chronic disease coronary artery disease chronic obstructive pulmonary disease diabetes mellitus type 2 hypertension Hyperlipidemia chronic hepatitis C Bilateral Peripheral vascular disease and bilateral iliofemoral disease Objective - Vital Signs Vital signs: Vital Signs Temp 97.8 F 10/02/21 07:00 Pulse 63 10/02/21 07:00 Resp 18 10/02/21 07:00 BP 141/67 10/02/21 07:00 Pulse Ox 99 10/02/21 07:00 Intake & Output 10/01/21 10/02/21 10/02/21 18:59 06:59 18:59 Intake Total 860 Output Total 600 Balance 260 Weight 72 kg Intake: Oral 860 Output: Urine 600 Other: Voiding Method Toilet Toilet # Voids 1 1 - Labs CBC & Chem 7: 09/25/21 06:02 09/27/21 09:59 Labs: Abnormal Lab Results - Last 24 Hours (Table) 10/01/21 10/01/21 10/01/21 Range/Units 11:56 16:52 17:13 POC Glucose (mg/dL) 198 H 67 L 117 H (75-99) mg/dL 10/01/21 Range/Units 19:57 POC Glucose (mg/dL) 155 H (75-99) mg/dL
[2021-10-02 12:33] LABS: Glucose,Whole Blood 125 mg/dL (75-99)
[2021-10-02 16:59] LABS: Glucose,Whole Blood 221 mg/dL (75-99)
[2021-10-02 20:35] LABS: Glucose,Whole Blood 133 mg/dL (75-99)
[2021-10-02] MEDS: QUEtiapine 25 MG TAB PO SCH (21:52)
[2021-10-02] MEDS: EZETIMIBE 10 MG TAB PO SCH (21:52)
[2021-10-02] MEDS: ATORVASTATIN 40 MG TAB PO SCH (21:52)
[2021-10-03] MEDS: FORMOTEROL FUMARATE 20 MCG/2 ML NEBU INHALATION SCH ×2 (07:40→21:06)
[2021-10-03] MEDS: IPRATROPIUM 0.5 MG/2.5 ML NEBU INHALATION SCH ×4 (07:40→21:06)
[2021-10-03 08:00] LABS: Glucose,Whole Blood 129 mg/dL (75-99)
[2021-10-03] MEDS: INSULIN ASPART (NovoLOG) 100 UNIT/ML VIAL SQ SCH ×3 (08:33→17:11)
[2021-10-03] MEDS: INSULIN DETEMIR (LEVEMIR) 100 UNIT/ML SYR SQ SCH (08:33)
[2021-10-03] MEDS: HYDROcodone/APAP 5-325MG 1 EACH TAB PO PRN ×2 (08:34→19:55)
[2021-10-03] MEDS: GABAPENTIN 100 MG CAP PO SCH ×2 (08:35→19:56)
[2021-10-03] MEDS: LOSARTAN 50 MG TAB PO SCH (08:35)
[2021-10-03] MEDS: SERTRALINE 25 MG TAB PO SCH (08:35)
[2021-10-03] MEDS: CLOPIDOGREL 75 MG TAB PO SCH (08:35)
[2021-10-03] MEDS: carvediloL 12.5 MG TAB PO SCH ×2 (08:35→19:57)
[2021-10-03] MEDS: amLODIPine 5 MG TAB PO SCH (08:35)
[2021-10-03] MEDS: hydrALAZINE HCL 50 MG TAB PO SCH ×3 (08:35→19:56)
[2021-10-03] MEDS: ASPIRIN 81 MG PO SCH (08:35)
[2021-10-03] MEDS: SPIRONOLACTONE 25 MG TAB PO SCH (08:35)
--- NOTE | 2021-10-03 10:18 | P.PN ---
Subjective 75-year-old male who was recently admitted with chest pain associated with some dizziness and shortness of breath and brought here for further evaluation. Patient also having some numbness and weakness with exertion and having leg pain. Patient was seen and evaluated by cardiology recommending continuing current medications and to follow-up in the outpatient setting. Patient was also seen and evaluated by vascular surgery as he follows with Dr. Torres and recommending outpatient follow-up. Patient is weak and evaluated by physical therapy recommending subacute rehab and guardian would like him to go to [facility] prior to returning to his [facility]. She denies any chest pain or shortness of breath. Patient is tolerating diet with no reports of nausea or vomiting noted. 09/26/2021 Patient is seen this morning follow-up and continues to be closely monitored. Cardiology following the patient and vascular surgery has evaluated the patient recommending outpatient follow-up. Patient continues with lower extremity bilateral leg pain and weakness and was evaluated by physical therapy recommending subacute rehab. Patient's insurance will require an authorization and awaiting an accepting facility. Legal guardian is aware of this and agreeable with this treatment plan. Patient is requiring more than 2 night hospitalization due to continued symptomatic weakness and leg pain. 09/27/2021 Patient is seen today and continues to have generalized weakness and bilateral lower extremity pain. Will add [place] and continue with Tylenol as well. Patient has been seen and evaluated by cardiology and vascular surgery recommending outpatient follow up. Patient denies any chest pain or shortness of breath. creatinine is 1.56 today. Patient is afebrile. 09/28/2021 Patient is seen today and physical therapy has reevaluated the patient recommending subacute rehab and social work following and working on finding an accepting facility. All local facilities have refused. Patient continues with weakness pain of lower extremities. No reports of chest pain or shortness of breath. Patient is afebrile. 09/29/2021 Patient is seen and evaluated and follow-up this morning no acute issues overnight. Patient continues to have pain in the lower extremities with weakness and has been working with physical therapy daily. Patient is being followed by social work and working on [facility] for rehab for strength and mobility. Will continue to monitor closely with possible discharge in 24-48 hours. 09/30/2021 Patient seen today continues to have weakness and requesting pain medications although reports no worsening. Patient denies any chest pain or shortness of breath and is tolerating diet. Patient has been accepted at [facility] although continuing to wait for authorization from insurance. 10/01/2021 Patient doesn't have any significant events physical therapy and occupational therapy are recommending recommending subacute rehabilitation awaiting authorization from his insurance company Oct 02 2021 Still awaiting authorization from the insurance 10/03/2021 No overnight events Review of systems: Constitutional: No reports of fatigue, fever, or chills Cardiovascular: No reports of chest pain or palpitations Respiratory: No reports of shortness of breath or cough GI: No reports of nausea, vomiting, or diarrhea : No reports of dysuria or retention Neurovascular: reports generalized weakness and contiinued bilateral lower extremity pain All medications have been reviewed Physical exam: Gen: This is a 75-year-old male awake, alert and oriented 3, well-developed, well-nourished, thin built. HEENT: Head is atraumatic, normocephalic. Pupils equal, round. Sclerae is anicteric. NECK: Supple. No JVD. No lymphadenopathy. No thyromegaly. LUNGS: Diminished breath sounds bilaterally with some scattered rhonchi and no wheezing noted.. No intercostal retractions. HEART: S1, S2 are muffled. ABDOMEN: Soft. Bowel sounds are present. No masses. No tenderness. EXTREMITIES: No pedal edema. No calf tenderness. NEUROLOGICAL: Patient is awake, alert and oriented x3. Cranial nerves 2 through 12 are grossly intact. Assessment: Chest pain, doubt acute coronary syndromes Bilateral numbness and weakness of lower extremities, possibly back pain and degenerative joint disease, possibly of spinal stenosis physical therapy and outpatient therapy evaluated the patient according to his subacute rehabitation Hypomagnesemia, improved h chronic kidney disease, stage III anemia, normocytic anemia of chronic disease coronary artery disease chronic obstructive pulmonary disease diabetes mellitus type 2 hypertension Hyperlipidemia chronic hepatitis C Bilateral Peripheral vascular disease and bilateral iliofemoral disease Objective - Vital Signs Vital signs: Vital Signs Temp 97.3 F L 10/03/21 08:16 Pulse 61 10/03/21 08:16 Resp 18 10/03/21 08:16 BP 160/74 10/03/21 08:16 Pulse Ox 100 10/03/21 08:16 Intake & Output 10/02/21 10/03/2110/03/21 18:59 06:59 18:59 Intake Total 236 240 Output Total 700 800 440 Balance -464 -800 -200 Intake: Oral 236 240 Output: Urine 700 800 440 Other: Voiding Method Toilet Toilet # Voids 1 # Bowel Movements 2 - Labs CBC & Chem 7: 09/25/21 06:02 09/27/21 09:59 Labs: Abnormal Lab Results - Last 24 Hours (Table) 10/02/21 10/02/21 10/02/21 Range/Units 12:29 16:58 20:33 POC Glucose (mg/dL) 125 H 221 H 133 H (75-99) mg/dL 10/03/21 Range/Units 07:59 POC Glucose (mg/dL) 129 H (75-99) mg/dL
[2021-10-03 12:16] LABS: Glucose,Whole Blood 118 mg/dL (75-99)
[2021-10-03 17:06] LABS: Glucose,Whole Blood 137 mg/dL (75-99)
[2021-10-03] MEDS: ATORVASTATIN 40 MG TAB PO SCH (19:56)
[2021-10-03] MEDS: EZETIMIBE 10 MG TAB PO SCH (19:56)
[2021-10-03] MEDS: QUEtiapine 25 MG TAB PO SCH (19:57)
[2021-10-03] MEDS: MELATONIN 5 MG TABLET PO PRN (19:57)
[2021-10-04 07:14] LABS: Glucose,Whole Blood 102 mg/dL (75-99)
[2021-10-04] MEDS: SERTRALINE 25 MG TAB PO SCH (07:50)
[2021-10-04] MEDS: LOSARTAN 50 MG TAB PO SCH (07:50)
[2021-10-04] MEDS: carvediloL 12.5 MG TAB PO SCH ×2 (07:50→20:01)
[2021-10-04] MEDS: hydrALAZINE HCL 50 MG TAB PO SCH ×3 (07:50→20:02)
[2021-10-04] MEDS: amLODIPine 5 MG TAB PO SCH (07:50)
[2021-10-04] MEDS: SPIRONOLACTONE 25 MG TAB PO SCH (07:50)
[2021-10-04] MEDS: GABAPENTIN 100 MG CAP PO SCH ×2 (07:50→20:01)
[2021-10-04] MEDS: INSULIN DETEMIR (LEVEMIR) 100 UNIT/ML SYR SQ SCH (07:50)
[2021-10-04] MEDS: CLOPIDOGREL 75 MG TAB PO SCH (07:50)
[2021-10-04] MEDS: ASPIRIN 81 MG PO SCH (07:50)
[2021-10-04] MEDS: INSULIN ASPART (NovoLOG) 100 UNIT/ML VIAL SQ SCH ×3 (07:54→17:40)
--- NOTE | 2021-10-04 09:15 | P.PN ---
Subjective 75-year-old male who was recently admitted with chest pain associated with some dizziness and shortness of breath and brought here for further evaluation. Patient also having some numbness and weakness with exertion and having leg pain. Patient was seen and evaluated by cardiology recommending continuing current medications and to follow-up in the outpatient setting. Patient was also seen and evaluated by vascular surgery as he follows with Dr. Torres and recommending outpatient follow-up. Patient is weak and evaluated by physical therapy recommending subacute rehab and guardian would like him to go to [facility] prior to returning to his [facility] house. She denies any chest pain or shortness of breath. Patient is tolerating diet with no reports of nausea or vomiting noted. 09/26/2021 Patient is seen this morning follow-up and continues to be closely monitored. Cardiology following the patient and vascular surgery has evaluated the patient recommending outpatient follow-up. Patient continues with lower extremity bilateral leg pain and weakness and was evaluated by physical therapy recommending subacute rehab. Patient's insurance will require an authorization and awaiting an accepting facility. Legal guardian is aware of this and agreeable with this treatment plan. Patient is requiring more than 2 night hospitalization due to continued symptomatic weakness and leg pain. 09/27/2021 Patient is seen today and continues to have generalized weakness and bilateral lower extremity pain. Will add [place] and continue with Tylenol as well. Patient has been seen and evaluated by cardiology and vascular surgery recommending outpatient follow up. Patient denies any chest pain or shortness of breath. creatinine is 1.56 today. Patient is afebrile. 09/28/2021 Patient is seen today and physical therapy has reevaluated the patient recommending subacute rehab and social work following and working on finding an accepting facility. All local facilities have refused. Patient continues with weakness pain of lower extremities. No reports of chest pain or shortness of breath. Patient is afebrile. 09/29/2021 Patient is seen and evaluated and follow-up this morning no acute issues overnight. Patient continues to have pain in the lower extremities with weakness and has been working with physical therapy daily. Patient is being followed by social work and working on [facility] for rehab for strength and mobility. Will continue to monitor closely with possible discharge in 24-48 hours. 09/30/2021 Patient seen today continues to have weakness and requesting pain medications although reports no worsening. Patient denies any chest pain or shortness of breath and is tolerating diet. Patient has been accepted at [facility] although continuing to wait for authorization from insurance. 10/01/2021 Patient doesn't have any significant events physical therapy and occupational therapy are recommending recommending subacute rehabilitation awaiting authorization from his insurance company Oct 02 2021 Still awaiting authorization from the insurance 10/03/2021 No overnight events 10/04/2021 no change in his overall clinical condition Review of systems: Constitutional: No reports of fatigue, fever, or chills Cardiovascular: No reports of chest pain or palpitations Respiratory: No reports of shortness of breath or cough GI: No reports of nausea, vomiting, or diarrhea : No reports of dysuria or retention Neurovascular: reports generalized weakness and contiinued bilateral lower extremity pain All medications have been reviewed Physical exam: Gen: This is a 75-year-old male awake, alert and oriented 3, well-developed, well-nourished, thin built. HEENT: Head is atraumatic, normocephalic. Pupils equal, round. Sclerae is anicteric. NECK: Supple. No JVD. No lymphadenopathy. No thyromegaly. LUNGS: Diminished breath sounds bilaterally with some scattered rhonchi and no wheezing noted.. No intercostal retractions. HEART: S1, S2 are muffled. ABDOMEN: Soft. Bowel sounds are present. No masses. No tenderness. EXTREMITIES: No pedal edema. No calf tenderness. NEUROLOGICAL: Patient is awake, alert and oriented x3. Cranial nerves 2 through 12 are grossly intact. Assessment: Chest pain, doubt acute coronary syndromes Bilateral numbness and weakness of lower extremities, possibly back pain and degenerative joint disease, possibly of spinal stenosis physical therapy and outpatient therapy evaluated the patient according to his subacute rehabitation Hypomagnesemia, improved h chronic kidney disease, stage III anemia, normocytic anemia of chronic disease coronary artery disease chronic obstructive pulmonary disease diabetes mellitus type 2 hypertension Hyperlipidemia chronic hepatitis C Bilateral Peripheral vascular disease and bilateral iliofemoral disease Objective - Vital Signs Vital signs: Vital Signs Temp 97.7 F 10/04/21 07:52 Pulse 72 10/04/21 07:52 Resp 16 10/04/21 07:52 BP 120/72 10/04/21 07:52 Pulse Ox 99 10/04/21 07:52 Intake & Output 10/03/21 10/04/21 10/04/21 18:59 06:59 18:59 Intake Total 714 236 Output Total 840 1400 Balance -126 -1400 236 Intake: Oral 714 236 Output: Urine 840 1400 Other: Voiding Method Urinal # Voids 1 - Labs CBC & Chem 7: 09/25/21 06:02 09/27/21 09:59 Labs: Abnormal Lab Results - Last 24 Hours (Table) 10/03/21 10/03/21 10/04/21 Range/Units 12:15 17:05 07:13 POC Glucose (mg/dL) 118 H 137 H 102 H (75-99) mg/dL
[2021-10-04] MEDS: IPRATROPIUM 0.5 MG/2.5 ML NEBU INHALATION SCH ×4 (11:36→20:06)
[2021-10-04] MEDS: FORMOTEROL FUMARATE 20 MCG/2 ML NEBU INHALATION SCH ×2 (11:36→20:06)
[2021-10-04 12:21] LABS: Glucose,Whole Blood 106 mg/dL (75-99)
[2021-10-04] MEDS: HYDROcodone/APAP 5-325MG 1 EACH TAB PO PRN ×2 (16:51→23:03)
[2021-10-04 17:18] LABS: Glucose,Whole Blood 147 mg/dL (75-99)
[2021-10-04] MEDS: QUEtiapine 25 MG TAB PO SCH (20:00)
[2021-10-04] MEDS: ATORVASTATIN 40 MG TAB PO SCH (20:01)
[2021-10-04] MEDS: EZETIMIBE 10 MG TAB PO SCH (20:01)
[2021-10-04 20:09] LABS: Glucose,Whole Blood 155 mg/dL (75-99)
[2021-10-04] MEDS: MELATONIN 5 MG TABLET PO PRN (23:02)
[2021-10-05] MEDS: FORMOTEROL FUMARATE 20 MCG/2 ML NEBU INHALATION SCH (07:23)
[2021-10-05] MEDS: IPRATROPIUM 0.5 MG/2.5 ML NEBU INHALATION SCH ×3 (07:23→11:30)
[2021-10-05 07:25] LABS: Glucose,Whole Blood 96 mg/dL (75-99)
[2021-10-05] MEDS: INSULIN ASPART (NovoLOG) 100 UNIT/ML VIAL SQ SCH ×2 (07:30→13:38)
[2021-10-05 08:06] VITALS: BP 163/78; PULSE 63; RESP 18; TEMP 97.6
[2021-10-05] MEDS: HYDROcodone/APAP 5-325MG 1 EACH TAB PO PRN (08:22)
[2021-10-05] MEDS: SERTRALINE 25 MG TAB PO SCH (08:22)
[2021-10-05] MEDS: carvediloL 12.5 MG TAB PO SCH (08:22)
[2021-10-05] MEDS: SPIRONOLACTONE 25 MG TAB PO SCH (08:23)
[2021-10-05] MEDS: LOSARTAN 50 MG TAB PO SCH (08:23)
[2021-10-05] MEDS: GABAPENTIN 100 MG CAP PO SCH (08:23)
[2021-10-05] MEDS: hydrALAZINE HCL 50 MG TAB PO SCH (08:23)
[2021-10-05] MEDS: INSULIN DETEMIR (LEVEMIR) 100 UNIT/ML SYR SQ SCH (08:23)
[2021-10-05] MEDS: amLODIPine 5 MG TAB PO SCH (08:23)
[2021-10-05] MEDS: CLOPIDOGREL 75 MG TAB PO SCH (08:23)
[2021-10-05] MEDS: ASPIRIN 81 MG PO SCH (08:23)
[2021-10-05 12:03] LABS: Glucose,Whole Blood 169 mg/dL (75-99)
--- NOTE | 2021-10-05 12:35 | P.DS ---
Providers Date of admission: 09/26/21 09:34 Attending physician: Myron Koehler Primary care physician: Mango [facility] Course: 75-year-old male who was recently admitted with chest pain associated with some dizziness and shortness of breath and brought here for further evaluation. Patient also having some numbness and weakness with exertion and having leg pain. Patient was seen and evaluated by cardiology recommending continuing current medications and to follow-up in the outpatient setting. Patient was also seen and evaluated by vascular surgery as he follows with Dr. Torres and recommending outpatient follow-up. Patient is weak and evaluated by physical therapy recommending subacute rehab and guardian would like him to go to [facility] prior to returning to his [facility] house. She denies any chest pain or shortness of breath. Patient is tolerating diet with no reports of nausea or vomiting noted. 09/26/2021 Patient is seen this morning follow-up and continues to be closely monitored. Cardiology following the patient and vascular surgery has evaluated the patient recommending outpatient follow-up. Patient continues with lower extremity bilateral leg pain and weakness and was evaluated by physical therapy recommending subacute rehab. Patient's insurance will require an authorization and awaiting an accepting facility. Legal guardian is aware of this and agreeable with this treatment plan. Patient is requiring more than 2 night hosp italization due to continued symptomatic weakness and leg pain. 09/27/2021 Patient is seen today and continues to have generalized weakness and bilateral lower extremity pain. Will add [place] and continue with Tylenol as well. Patient has been seen and evaluated by cardiology and vascular surgery recommending outpatient follow up. Patient denies any chest pain or shortness of breath. creatinine is 1.56 today. Patient is afebrile. 09/28/2021 Patient is seen today and physical therapy has reevaluated the patient recommending subacute rehab and social work following and working on finding an accepting facility. All local facilities have refused. Patient continues with weakness pain of lower extremities. No reports of chest pain or shortness of breath. Patient is afebrile. 09/29/2021 Patient is seen and evaluated and follow-up this morning no acute issues overnight. Patient continues to have pain in the lower extremities with weakness and has been working with physical therapy daily. Patient is being followed by social work and working on [facility] for rehab for strength and mobility. Will continue to monitor closely with possible discharge in 24-48 hours. 09/30/2021 Patient seen today continues to have weakness and requesting pain medications although reports no worsening. Patient denies any chest pain or shortness of breath and is tolerating diet. Patient has been accepted at [facility] although continuing to wait for authorization from insurance. 10/01/2021 Patient doesn't have any significant events physical therapy and occupational therapy are recommending recommending subacute rehabilitation awaiting authorization from his insurance company Oct 02 2021 Still awaiting authorization from the insurance 10/03/2021 No overnight events 10/04/2021 no change in his overall clinical condition 10/05/2021 patient is being discharged to subacute rehabitation no changes in his medications are being made today did review the medication reconciliation today. Physical exam: Gen: This is a 75-year-old male awake, alert and oriented 3, well-developed, well-nourished, thin built. HEENT: Head is atraumatic, normocephalic. Pupils equal, round. Sclerae is anic teric. NECK: Supple. No JVD. No lymphadenopathy. No thyromegaly. LUNGS: Diminished breath sounds bilaterally with some scattered rhonchi and no wheezing noted.. No intercostal retractions. HEART: S1, S2 are muffled. ABDOMEN: Soft. Bowel sounds are present. No masses. No tenderness. EXTREMITIES: No pedal edema. No calf tenderness. NEUROLOGICAL: Patient is awake, alert and oriented x3. Cranial nerves 2 through 12 are grossly intact. Assessment: Chest pain, doubt acute coronary syndromes Bilateral numbness and weakness of lower extremities, possibly back pain and degenerative joint disease, possibly of spinal stenosis physical therapy and occupational therapy in subacute rehabitation Hypomagnesemia, improved h chronic kidney disease, stage III anemia, normocytic anemia of chronic disease coronary artery disease chronic obstructive pulmonary disease diabetes mellitus type 2 hypertension Hyperlipidemia chronic hepatitis C Bilateral Peripheral vascular disease and bilateral iliofemoral disease Patient Condition at Discharge: Stable Plan - Discharge Summary New Discharge Prescriptions: New HYDROcodone/APAP 5-325MG [[place] 5-325] 1 tab PO Q6HR PRN 3 Days #9 tab PRN Reason: Pain Continue Clopidogrel [Plavix] 75 mg PO DAILY Atorvastatin Calcium [Lipitor] 40 mg PO HS Aspirin 81 mg PO DAILY Ezetimibe [Zetia] 10 mg PO HS hydrALAZINE HCL [Apresoline] 100 mg PO TID Albuterol Inhaler [Ventolin Hfa Inhaler] 2 puff INHALATION RT-Q4H PRN PRN Reason: Shortness Of Breath amLODIPine [Norvasc] 5 mg PO DAILY INSULIN ASPART (NovoLOG) [NovoLOG (formulary)] 5 unit SQ AC-TID Losartan [Cozaar] 50 mg PO DAILY Umeclidinium Brm/Vilanterol Tr [Anoro Ellipta 62.5-25 Mcg INH] 1 puff INHALATION RT-DAILY Melatonin 5 mg PO HS PRN #14 tablet PRN Reason: Insomnia Sertraline [Zoloft] 25 mg PO DAILY 14 Days #14 tab Insulin Detemir [Levemir Flextouch Pen] 5 units SQ DAILY QUEtiapine [SEROquel] 25 mg PO HS Carvedilol [Coreg] 12.5 mg PO BID Furosemide [Lasix] 40 mg PO DAILY Oxymetazoline 0.05% Nasl [place] [Afrin 0.05% Nasal [place]] 2 spray EA NOSTRIL BID PRN PRN Reason: Congestion Spironolactone 25 mg PO DAILY Gabapentin [Neurontin] 100 mg PO BID #60 cap Discharge Medication List Aspirin 81 mg PO DAILY 05/15/14 [History] Atorvastatin Calcium [Lipitor] 40 mg PO HS 05/15/14 [History] Clopidogrel [Plavix] 75 mg PO DAILY 05/15/14 [History] Ezetimibe [Zetia] 10 mg PO HS 07/25/20 [History] hydrALAZINE HCL [Apresoline] 100 mg PO TID 07/25/20 [History] Albuterol Inhaler [Ventolin Hfa Inhaler] 2 puff INHALATION RT-Q4H PRN 08/17/21 [History] Carvedilol [Coreg] 12.5 mg PO BID 08/17/21 [History] Furosemide [Lasix] 40 mg PO DAILY 08/17/21 [History] INSULIN ASPART (NovoLOG) [NovoLOG (formulary)] 5 unit SQ AC-TID 08/17/21 [History] Losartan [Cozaar] 50 mg PO DAILY 08/17/21 [History] Oxymetazoline 0.05% Nasl [place] [Afrin 0.05% Nasal [place]] 2 spray EA NOSTRIL BID PRN 11/08/21 [History] Spironolactone 25 mg PO DAILY 08/17/21 [History] Umeclidinium Brm/Vilanterol Tr [Anoro Ellipta 62.5-25 Mcg INH] 1 puff INHALATION RT-DAILY 08/17/21 [History] amLODIPine [Norvasc] 5 mg PO DAILY 08/17/21 [History] Melatonin 5 mg PO HS PRN #14 tablet 08/19/21 [Rx] Sertraline [Zoloft] 25 mg PO DAILY 14 Days #14 tab 08/19/21 [Rx] Gabapentin [Neurontin] 100 mg PO BID #60 cap 08/27/21 [Rx] Insulin Detemir [Levemir Flextouch Pen] 5 units SQ DAILY 09/24/21 [History] QUEtiapine [SEROquel] 25 mg PO HS 09/24/21 [History] HYDROcodone/APAP 5-325MG [[place] 5-325] 1 tab PO Q6HR PRN 3 Days #9 tab 09/25/21 [Rx] Follow up Appointment(s)/Referral(s): Pino Menezes MD [STAFF PHYSICIAN] - 1-2 Days Trinity Torres DO [STAFF PHYSICIAN] - 1 Week Mango Cook DO [Primary Care Provider] - 3 Days Activity/Diet/Wound Care/Special Instructions: Activity Limited until follow-up Follow-up with cardiology outpatient Follow-up with vascular surgery outpatient Continue taking medications as prescribed Continue heart healthy diet Follow-up with primary care provider on discharge Discharge Disposition: TRANSFER TO SNF/ECF
--- NOTE | 2021-10-08 09:10 | CDI ---
Documentation Clarification Form Date: 10/08/2021 09:03:12 AM From: [employer] [facility] Admit Date: 09/26/2021 09:34:00 AM Patient Name: Valnetino Ortiz Visit Number: [id number] Discharge Date: 10/05/2021 02:27:00 PM ATTENTION: The Clinical Documentation Specialists (CDI) and [facility] Coding Staff appreciate your assistance in clarifying documentation. Please respond to the clarification below the line at the bottom and electronically sign. The CDI & [facility] Coding staff will review the response and follow-up if needed. Please note: Queries are made part of the Legal Health Record. If you have any questions, please contact the author of this message via ITS. Dr. Shaniqua Webb The patients principal diagnosis the diagnosis that was chiefly responsible for the admission - has not been clearly identified and clarification is requested. The patient presented with the following symptoms: chest pain, bilateral leg pain and weakness. Discharge summary states ACS ruled out and possible spinal stenosis. History/Risk factors: PVD, possible spinal stenosis, CAD Clinical Indicators: Lab findings: Radiology findings: Vital Signs: Treatment: Consults: for chest pain and lower extremity pain and weakness. In your professional opinion, can you please clarify which diagnosis, after study, was the reason chiefly responsible for the admission? [ ] spinal stenosis [ ] CAD with angina [ ] Other, please specify [ ] Unable to determine [ ] bilateral leg pain and weakness without a diagnosis [ X] chest pain of unknown etiology PVD, Generalized weakness and deconditioning MTDD
== END 2021-10-05 14:27 | DRG 300 ==
LOC: EC 14:03 → 6NMEDSUR 16:37 → UNDODISOB 09-25 19:40 → OBSVTOIN 09-26 09:34 → 6NMEDSUR 09-26 21:20
PROVIDERS: ADMIT Hospitalist; ATTEND Hospitalist
DX: I73.9 Peripheral vascular disease, unspecified (principal); I50.22 Chronic systolic (congestive) heart failure; I13.0 Hypertensive heart and chronic kidney disease with heart failure and stage 1 through stage 4 chronic kidney disease, or unspecified chronic kidney disease; R07.9 Chest pain, unspecified; R53.1 Weakness; M48.00 Spinal stenosis, site unspecified; R42 Dizziness and giddiness; B18.2 Chronic viral hepatitis C; D63.1 Anemia in chronic kidney disease; D69.6 Thrombocytopenia, unspecified; E78.5 Hyperlipidemia, unspecified; E11.22 Type 2 diabetes mellitus with diabetic chronic kidney disease; E11.51 Type 2 diabetes mellitus with diabetic peripheral angiopathy without gangrene; E83.42 Hypomagnesemia; F17.200 Nicotine dependence, unspecified, uncomplicated; G89.29 Other chronic pain; I25.10 Atherosclerotic heart disease of native coronary artery without angina pectoris; N18.30 Chronic kidney disease, stage 3 unspecified; I25.2 Old myocardial infarction; I25.5 Ischemic cardiomyopathy; I34.0 Nonrheumatic mitral (valve) insufficiency; I49.3 Ventricular premature depolarization; J44.9 Chronic obstructive pulmonary disease, unspecified; Z20.822 Contact with and (suspected) exposure to COVID-19; Z79.02 Long term (current) use of antithrombotics/antiplatelets; Z79.4 Long term (current) use of insulin; Z79.82 Long term (current) use of aspirin; Z79.899 Other long term (current) drug therapy; Z80.9 Family history of malignant neoplasm, unspecified; Z85.46 Personal history of malignant neoplasm of prostate; Z86.16 Personal history of COVID-19; Z95.2 Presence of prosthetic heart valve; Z95.810 Presence of automatic (implantable) cardiac defibrillator; Z96.642 Presence of left artificial hip joint; G51.0 Bell's palsy; R07.89 Other chest pain; M79.604 Pain in right leg; M79.605 Pain in left leg
CPT/HCPCS: 36415; 71045; 80048; 80053; 80061; 83721; 83735; 84484; 85025; 85610; 85730; 87635; 93005; 94640; 96365; 96366; 99285

== ENCOUNTER 2021-11-12 17:45 | Observation (INO) | payer MEDICARE ==
[2021-11-12] MEDS ORDERED: ASPIRIN 81 MG PO STA (17:56)
[2021-11-12] MEDS ORDERED: NITROGLYCERIN OINT 1 INCH/GM PACKET TOPICAL STA (17:56)
--- NOTE | 2021-11-12 18:01 | ED ---
General Adult HPI - General Chief complaint: Chest Pain Stated complaint: Chest pain Time Seen by Provider: 11/12/21 17:45 Source: patient, EMS, RN notes reviewed, old records reviewed Mode of arrival: EMS Limitations: no limitations - History of Present Illness Initial comments: This is a 75-year-old male presents emergency department with past medical history significant for 3 heart attacks and multiple stents, diabetes, high blood pressure and high cholesterol. Patient states he started having chest pain 2 hours ago and he took an OxyContin so currently he has no chest pain. Patient denies any difficulty breathing. Patient denies any abdominal pain patient denies nausea vomiting diarrhea. Patient states he had a pacemaker placed for the second time 2 days ago. Patient denies headache patient denies numbness weakness. Patient denies any lightheadedness or dizziness. - Related Data Home Medications Medication Instructions Recorded Confirmed Aspirin 81 mg PO DAILY 05/15/14 09/24/21 Atorvastatin Calcium [Lipitor] 40 mg PO HS 05/15/14 09/24/21 Clopidogrel [Plavix] 75 mg PO DAILY 05/15/14 09/24/21 Ezetimibe [Zetia] 10 mg PO HS 07/25/20 09/24/21 hydrALAZINE HCL [Apresoline] 100 mg PO TID 07/25/20 09/24/21 Albuterol Inhaler [Ventolin Hfa 2 puff INHALATION RT-Q4H PRN 08/17/21 09/24/21 Inhaler] Carvedilol [Coreg] 12.5 mg PO BID 08/17/21 09/24/21 Furosemide [Lasix] 40 mg PO DAILY 08/17/21 09/24/21 INSULIN ASPART (NovoLOG) [NovoLOG 5 unit SQ AC-TID 08/17/21 09/24/21 (formulary)] Losartan [Cozaar] 50 mg PO DAILY 08/17/21 09/24/21 Oxymetazoline 0.05% Nasl [place] 2 spray EA NOSTRIL BID PRN 08/17/21 09/24/21 [Afrin 0.05% Nasal [place]] Spironolactone 25 mg PO DAILY 08/17/21 09/24/21 Umeclidinium Brm/Vilanterol Tr 1 puff INHALATION RT-DAILY 08/17/21 09/24/21 [Anoro Ellipta 62.5-25 Mcg INH] amLODIPine [Norvasc] 5 mg PO DAILY 08/17/21 09/24/21 Insulin Detemir [Levemir Flextouch 5 units SQ DAILY 09/24/21 09/24/21 Pen] QUEtiapine [SEROquel] 25 mg PO HS 09/24/21 09/24/21 Previous Rx's Medication Instructions Recorded Melatonin 5 mg PO HS PRN #14 tablet 08/19/21 Sertraline [Zoloft] 25 mg PO DAILY 14 Days #14 tab 08/19/21 Gabapentin [Neurontin] 100 mg PO BID #60 cap 08/27/21 HYDROcodone/APAP 5-325MG [[place] 1 tab PO Q6HR PRN 3 Days #9 tab 09/25/21 5-325] Allergies Allergy/AdvReac Type Severity Reaction Status Date / Time No Known Allergies Allergy Verified 09/24/21 16:11 Review of Systems ROS Statement: Those systems with pertinent positive or pertinent negative responses have been documented in the HPI. ROS Other: All systems not noted in ROS Statement are negative. Past Medical History Past Medical History: Cancer, Chest Pain / Angina, Heart Failure, COPD, Diabetes Mellitus, Eye Disorder, Hyperlipidemia, Hypertension, Myocardial Infarction ([place]), Myocardial Infarction (non Q-wave), Osteoarthritis (OA), Prostate Disorder, Renal Disease Additional Past Medical History / Comment(s): "Needs Valve replacement."-Severe mitral vavle reguritation, Systolic HF, Ischemic cardiomyopathy, LBBB, Suicidal ideations, HX PROSTATE CANCER 30 yrs ago, BELLS PALSY, GLAUCOMA, SHORT TERM MEMORY LOSS. Lost 23 lbs recently and continues with decreased appetite. Hx CoVid December 2019. Insomnia. Chronic Hepatitis C, Stage 3 kidney disease - pacemaker replaced 2021 Last Myocardial Infarction Date:: 2018 History of Any Multi-Drug Resistant Organisms: None Reported Past Surgical History: Heart Catheterization, Joint Replacement, Pacemaker, Prostate Surgery Additional Past Surgical History / Comment(s): Left hip replacement. Past Anesthesia/Blood Transfusion Reactions: No Reported Reaction Type of Cardiac Device: Permanent Pacemaker Device Placement Date:: April 2021 Past Psychological History: No Psychological Hx Reported Smoking Status: Former smoker Past Alcohol Use History: Occasional Past Drug Use History: Marijuana - Past Family History Mother History Unknown: Yes General Exam - General Exam Comments Initial Comments: GENERAL: Patient is well-developed and well-nourished. Patient is nontoxic and well- hydrated and is in mild distress. ENT: Neck is soft and supple. No significant lymphadenopathy is noted. Oropharynx is clear. Moist mucous membranes. Neck has full range of motion without eliciting any pain. EYES: The sclera were anicteric and conjunctiva were pink and moist. Extraocular movements were intact and pupils were equal round and reactive to light. Eyelids were unremarkable. PULMONARY: Unlabored respirations. Good breath sounds bilaterally. No audible rales rhonchi or wheezing was noted. CARDIOVASCULAR: There is a regular rate and rhythm without any murmurs gallops or rubs. Patient has some swelling around the pacemaker site and it's tender to palpation however there is no redness or drainage noted. ABDOMEN: Soft and nontender with normal bowel sounds. SKIN: Skin is clear with no lesions or rashes and otherwise unremarkable. NEUROLOGIC: Patient is alert and oriented x3. Cranial nerves II through XII are grossly intact. Motor and sensory are also intact. Normal speech, volume and content. Symmetrical smile. MUSCULOSKELETAL: Normal extremities with adequate strength and full range of motion. LYMPHATICS: No significant lymphadenopathy is noted PSYCHIATRIC: Normal psychiatric evaluation. Limitations: no limitations Course Vital Signs 11/12/21 17:47 Temperature 98.4 F Pulse Rate 76 Respiratory 18 Rate Blood Pressure 178/80 O2 Sat by Pulse 100 Oximetry Medical Decision Making - Medical Decision Making EKG shows a paced rhythm at 76 bpm OR interval 232 QRS is under 24 QT interval is 468 QTC is 526. Patient has has T-wave inversion in the inferior leads as well as precordial leads V3 through V6 Chest x-ray shows no acute abnormality. Patient's troponin is mildly elevated could possibly secondary to the pacemaker placement however because of the chest pain we'll be keeping the patient. I spoke with [facility] agreed to admit the patient admitted the patient and writing admitting orders - Lab Data Result diagrams: 11/12/21 17:58 11/12/21 17:58 Lab Results 11/12/21 11/12/21 11/12/21 Range/Units 17:58 17:58 17:58 WBC 5.1 (3.8-10.6) k/uL RBC 3.01 L (4.30-5.90) m/uL Hgb 8.9 L D (13.0-17.5) gm/dL Hct 28.0 L (39.0-53.0) % MCV 93.0 D (80.0-100.0) fL MCH 29.5 (25.0-35.0) pg MCHC 31.7 (31.0-37.0) g/dL RDW 17.1 H (11.5-15.5) % Plt Count 194 (150-450) k/uL MPV 9.6 Neutrophils % (Manual) 66 % Lymphocytes % (Manual) 23 % Monocytes % (Manual) 10 % Eosinophils % (Manual) 1 % Neutrophils # (Manual) 3.37 (1.3-7.7) k/uL Lymphocytes # (Manual) 1.17 (1.0-4.8) k/uL Monocytes # (Manual) 0.51 (0-1.0) k/uL Eosinophils # (Manual) 0.05 (0-0.7) k/uL Nucleated RBCs 0 (0-0) /100 WBC Manual Slide Review Performed Hypochromasia Moderate Anisocytosis Slight PT 11.3 (9.0-12.0) sec INR 1.1 (<1.2) APTT 23.4 (22.0-30.0) sec Sodium 140 (137-145) mmol/L Potassium 4.4 (3.5-5.1) mmol/L Chloride 110 H (98-107) mmol/L Carbon Dioxide 23 (22-30) mmol/L Anion Gap 7 mmol/L BUN 39 H (9-20) mg/dL Creatinine 1.73 H (0.66-1.25) mg/dL Est GFR (CKD-EPI)AfAm 44 (>60 ml/min/1.73 sqM) Est GFR (CKD-EPI)NonAf 38 (>60 ml/min/1.73 sqM) Glucose 151 H (74-99) mg/dL Calcium 8.6 (8.4-10.2) mg/dL Magnesium 1.8 (1.6-2.3) mg/dL Total Bilirubin 0.4 (0.2-1.3) mg/dL AST 65 H (17-59) U/L ALT 49 (4-49) U/L Alkaline Phosphatase 72 (38-126) U/L Troponin I (0.000-0.034) ng/mL NT-Pro-B Natriuret Pep pg/mL Total Protein 6.7 (6.3-8.2) g/dL Albumin 3.4 L (3.5-5.0) g/dL 11/12/21 11/12/21 Range/Units 17:58 17:58 WBC (3.8-10.6) k/uL RBC (4.30-5.90) m/uL Hgb (13.0-17.5) gm/dL Hct (39.0-53.0) % MCV (80.0-100.0) fL MCH (25.0-35.0) pg MCHC (31.0-37.0) g/dL RDW (11.5-15.5) % Plt Count (150-450) k/uL MPV Neutrophils % (Manual) % Lymphocytes % (Manual) % Monocytes % (Manual) % Eosinophils % (Manual) % Neutrophils # (Manual) (1.3-7.7) k/uL Lymphocytes # (Manual) (1.0-4.8) k/uL Monocytes # (Manual) (0-1.0) k/uL Eosinophils # (Manual) (0-0.7) k/uL Nucleated RBCs (0-0) /100 WBC Manual Slide Review Hypochromasia Anisocytosis PT (9.0-12.0) sec INR (<1.2) APTT (22.0-30.0) sec Sodium (137-145) mmol/L Potassium (3.5-5.1) mmol/L Chloride (98-107) mmol/L Carbon Dioxide (22-30) mmol/L Anion Gap mmol/L BUN (9-20) mg/dL Creatinine (0.66-1.25) mg/dL Est GFR (CKD-EPI)AfAm (>60 ml/min/1.73 sqM) Est GFR (CKD-EPI)NonAf (>60 ml/min/1.73 sqM) Glucose (74-99) mg/dL Calcium (8.4-10.2) mg/dL Magnesium (1.6-2.3) mg/dL Total Bilirubin (0.2-1.3) mg/dL AST (17-59) U/L ALT (4-49) U/L Alkaline Phosphatase (38-126) U/L Troponin I 0.041 H* (0.000-0.034) ng/mL NT-Pro-B Natriuret Pep 7640 pg/mL Total Protein (6.3-8.2) g/dL Albumin (3.5-5.0) g/dL Disposition Clinical Impression: Chest pain Disposition: ADMITTED IP TO THIS HOSP Referrals: Mango Cook DO [Primary Care Provider] - 1-2 days Time of Disposition: 18:55
[2021-11-12 18:08] LABS: Anisocytosis Slight; HGB 8.9 gm/dL (13.0-17.5); Hypochromasia Moderate; MCH 29.5 pg (25.0-35.0); MCHC 31.7 g/dL (31.0-37.0); Mean Platelet Volume 9.6; Platelet Count 194 k/uL (150-450); RBC 3.01 m/uL (4.30-5.90); RDW 17.1 % (11.5-15.5); WBC 5.1 k/uL (3.8-10.6)
[2021-11-12 18:16] LABS: Albumin 3.4 g/dL (3.5-5.0); Calcium 8.6 mg/dL (8.4-10.2); Magnesium 1.8 mg/dL (1.6-2.3); Potassium 4.4 mmol/L (3.5-5.1); Total Bilirubin 0.4 mg/dL (0.2-1.3); Total Protein 6.7 g/dL (6.3-8.2)
--- NOTE | 2021-11-12 18:27 | XR ---
EXAMINATION TYPE: XR chest 2V DATE OF EXAM: 11/12/2021 6:06 PM COMPARISON:Multiple radiographs, with the most recent on 09/24/2021 TECHNIQUE: Frontal view of the chest. CLINICAL INDICATION:Male, 75 years old with history of Chest Pain; FINDINGS: Lungs/Pleura: There is no evidence of pleural effusion, focal consolidation, or pneumothorax. Pulmonary vascularity: Unremarkable. Heart/mediastinum: Cardiomediastinal silhouette is enlarged and stable. Three lead cardiac conduction device overlying the left hemithorax with lead tips projecting over the right ventricle, right atriu m and coronary sinus. Musculoskeletal:No acute osseous pathology. Other findings: None IMPRESSION: No acute cardiopulmonary disease/process.
[2021-11-12 18:39] LABS: INR 1.1 (<1.2); Partial Thromboplastin Time 23.4 sec (22.0-30.0); Prothrombin Time 11.3 sec (9.0-12.0)
[2021-11-12 18:42] LABS: Eosinophils # (M) 0.05 k/uL (0-0.7); Lymphocytes # (M) 1.17 k/uL (1.0-4.8); Monocytes # (M) 0.51 k/uL (0-1.0); Neutrophils # (M) 3.37 k/uL (1.3-7.7); Neutrophils % (M) 66 %; Nucleated Red Blood Cells 0 /100 WBC (0-0); Total Cells Counted 100
[2021-11-12] MEDS ORDERED: NITROGLYCERIN SL TABS 0.4 MG TAB SUBLINGUAL PRN (18:56)
[2021-11-12] MEDS ORDERED: MELATONIN 5 MG TABLET PO PRN (23:02)
[2021-11-12] MEDS: hydrALAZINE HCL 50 MG TAB PO SCH (23:26)
[2021-11-12] MEDS: GABAPENTIN 100 MG CAP PO SCH (23:26)
[2021-11-12] MEDS: ATORVASTATIN 40 MG TAB PO SCH (23:26)
[2021-11-12] MEDS: QUEtiapine 25 MG TAB PO SCH (23:26)
[2021-11-12] MEDS: EZETIMIBE 10 MG TAB PO SCH (23:26)
[2021-11-13] MEDS: NITROGLYCERIN OINT 1 INCH/GM PACKET TOPICAL SCH ×2 (02:36→05:41)
[2021-11-13 06:08] LABS: Glucose,Whole Blood 119 mg/dL (75-99)
[2021-11-13] MEDS: INSULIN DETEMIR (LEVEMIR) 100 UNIT/ML SYR SQ SCH (06:08)
[2021-11-13] MEDS: INSULIN ASPART (NovoLOG) 100 UNIT/ML VIAL SQ SCH ×3 (06:08→17:21)
[2021-11-13] MEDS: carvediloL 12.5 MG TAB PO SCH ×2 (06:28→17:21)
[2021-11-13 07:56] LABS: Anisocytosis Slight; Basophils # (A) 0.1 k/uL (0-0.2); Basophils % (A) 1 %; Eosinophils # (A) 0.4 k/uL (0-0.7); Eosinophils % (A) 8 %; HCT 28.1 % (39.0-53.0); HGB 8.9 gm/dL (13.0-17.5); Hypochromasia Moderate; Lymphocytes # (A) 1.2 k/uL (1.0-4.8); Lymphocytes % (A) 23 %; MCH 29.4 pg (25.0-35.0); MCHC 31.5 g/dL (31.0-37.0); MCV 93.3 fL (80.0-100.0); Mean Platelet Volume 10.4; Monocytes # (A) 0.6 k/uL (0-1.0); Monocytes % (A) 11 %; Neutrophils # (A) 2.9 k/uL (1.3-7.7); Neutrophils % (A) 55 %; Platelet Count 160 k/uL (150-450); RBC 3.01 m/uL (4.30-5.90); RDW 16.8 % (11.5-15.5); WBC 5.2 k/uL (3.8-10.6)
[2021-11-13 08:03] LABS: Calcium 8.4 mg/dL (8.4-10.2)
[2021-11-13] MEDS: SPIRONOLACTONE 25 MG TAB PO SCH (08:43)
[2021-11-13] MEDS: GABAPENTIN 100 MG CAP PO SCH ×2 (08:43→20:23)
[2021-11-13] MEDS: FUROSEMIDE 40 MG TAB PO SCH (08:43)
[2021-11-13] MEDS: MAGNESIUM OXIDE 400 MG TAB PO SCH (08:43)
[2021-11-13] MEDS: CLOPIDOGREL 75 MG TAB PO SCH (08:43)
[2021-11-13] MEDS: SERTRALINE 25 MG TAB PO SCH (08:43)
[2021-11-13] MEDS: hydrALAZINE HCL 50 MG TAB PO SCH ×3 (08:43→20:23)
[2021-11-13] MEDS: amLODIPine 5 MG TAB PO SCH (08:43)
--- NOTE | 2021-11-13 08:44 | P.CRDCN ---
History of Present Illness Consult date: 11/13/21 History of present illness: the patient is a 75-year-old male with a known history elevated of severe CAD, ischemic cardiomyopathy and severe mitral regurgitation, followed at [facility] with ICD biventricular who underwent replacement of his pacemaker early this week, according to the patient he had a possible perforation from the wire although details are not available. He presents with symptoms of chest discomfort, worse with deep breathing. He has chronic dyspnea on exertion, dizziness but no palpitations. He has been evaluated at [facility] for possible high-risk PCI and mitral valve clip, his catheterization in August 2021 was reported showing significant distal left main disease, ostial LAD as well as obstructive disease in the OM and chronically occluded distal RCA. His ejection fraction was in the 30s with severe mitral regurgitation his activity level is limited, he has chronic dyspnea on exertion, he denies any PND or ort hopnea. He has no nausea or vomiting. The detail of his most recent admission to [facility] is not available at this time. His coronary risk factors are positive for hypertension, hyperlipidemia, diabetes mellitus as well as a history of peripheral vascular disease and a history of smoking. On presentation he had evidence of mild troponin elevation and his EKG showed 100% ventricular pacing.. Respiratory: he has a history of dyspnea on exertion, COPD. GI: No nausea, vomiting. No history of peptic ulcer disease. No recent GI bleed. : No hematuria or dysuria. Nervous System: No stroke or seizure. Head: Normocephalic. Eyes: Sclerae nonicteric. Neck: Good carotid upstroke, no bruit, no jugular venous distention. Lungs: decreased breath sounds bilaterally, no wheezes . Heart: Regular rate and rhythm, S1-S2, no S3, no rub.holosystolic murmur at the apex, 3/6. Pacemaker site noted, mild swelling, tenderness noted. Abdomen: Soft nontender, positive bowel sounds no organomegaly. Extremities: No edema, intact distal pulses. impression: 1. [chest discomfort, appears atypical for CAD, probably muscular skeletal and could be related to the recent pacemaker implantation, the troponin elevation most likely represent irritation from the recent intervention ] 2. [status post recent pacemaker revision at [facility], details not available] 3. [history of severe CAD] 4. [history of severe cardiomyopathy] 5. [ history of severe MR 6. Severe PAD Plan 1. Obtain records from [facility]] 2. Continue medical therapy. 3. Obtain an echocardiogram with Doppler. 4. Increase physical activity 5. Depending on his progress further recommendations will be made. Thank you for this consult we'll follow with you Past Medical History Past Medical History: Cancer, Chest Pain / Angina, Heart Failure, COPD, Diabetes Mellitus, Eye Disorder, Hyperlipidemia, Hypertension, Myocardial Infarction ([place]), Myocardial Infarction (non Q-wave), Osteoarthritis (OA), Prostate Disorder, Renal Disease Additional Past Medical History / Comment(s): "Needs Valve replacement."-Severe mitral vavle reguritation, Systolic HF, Ischemic cardiomyopathy, LBBB, Suicidal ideations, HX PROSTATE CANCER 30 yrs ago, BELLS PALSY, GLAUCOMA, SHORT TERM MEMORY LOSS. Lost 23 lbs recently and continues with decreased appetite. Hx CoVid December 2019. Insomnia. Chronic Hepatitis C, Stage 3 kidney disease - pacemaker replaced 2021 Last Myocardial Infarction Date:: 2018 History of Any Multi-Drug Resistant Organisms: None Reported Past Surgical History: Heart Catheterization, Joint Replacement, Pacemaker, Prostate Surgery Additional Past Surgical History / Comment(s): Left hip replacement. Past Anesthesia/Blood Transfusion Reactions: No Reported Reaction Type of Cardiac Device: Permanent Pacemaker Device Placement Date:: April 2021 Past Psychological History: No Psychological Hx Reported Smoking Status: Never smoker Past Alcohol Use History: Occasional Additional Past Alcohol Use History / Comment(s): Pt states he quit smoking 3 mo nths ago. ; pt told this RN that he has never been a smoker Past Drug Use History: Marijuana Additional Drug Use History / Comment(s): Hasn't used Marijuana for 2 yrs ago. - Past Family History Mother History Unknown: Yes Medications and Allergies Home Medications Medication Instructions Recorded Confirmed Type Aspirin 81 mg PO DAILY 05/15/14 11/12/21 History Atorvastatin Calcium [Lipitor] 40 mg PO HS 05/15/14 11/12/21 History Clopidogrel [Plavix] 75 mg PO DAILY 05/15/14 11/12/21 History Ezetimibe [Zetia] 10 mg PO HS 07/25/20 11/12/21 History hydrALAZINE HCL [Apresoline] 100 mg PO TID 07/25/20 11/12/21 History Albuterol Inhaler [Ventolin Hfa 2 puff INHALATION RT-Q4H PRN 08/17/21 11/12/21 History Inhaler] Carvedilol [Coreg] 12.5 mg PO BID 08/17/21 11/12/21 History Furosemide [Lasix] 40 mg PO DAILY 08/17/21 11/12/21 History INSULIN ASPART (NovoLOG) [NovoLOG 5 unit SQ AC-TID 08/17/21 11/12/21 History (formulary)] Oxymetazoline 0.05% Nasl [place] 2 spray EA NOSTRIL BID PRN 08/17/21 11/12/21 History [Afrin 0.05% Nasal [place]] Spironolactone 25 mg PO DAILY 08/17/21 11/12/21 History Umeclidinium Brm/Vilanterol Tr 1 puff INHALATION RT-DAILY 08/17/21 11/12/21 History [Anoro Ellipta 62.5-25 Mcg INH] amLODIPine [Norvasc] 5 mg PO DAILY 08/17/21 11/12/21 History Melatonin 5 mg PO HS PRN #14 tablet 08/19/21 11/12/21 Rx Sertraline [Zoloft] 25 mg PO DAILY 14 Days #14 tab 08/19/21 11/12/21 Rx Gabapentin [Neurontin] 100 mg PO BID #60 cap 08/27/21 11/12/21 Rx Insulin Detemir [Levemir Flextouch 5 units SQ DAILY 09/24/21 11/12/21 History Pen] QUEtiapine [SEROquel] 25 mg PO HS 09/24/21 11/12/21 History Losartan Potassium [Cozaar] 25 mg PO DAILY 11/12/21 11/12/21 History Magnesium Oxide [Magox 400] 400 mg PO DAILY 11/12/21 11/12/21 History [place]-3 Acid Ethyl Esters [Lovaza] 2 gm PO BID 11/12/21 11/12/21 History oxyCODONE HCL [OxyIR] 5 mg PO QID PRN 11/12/21 11/12/21 History Allergies Allergy/AdvReac Type Severity Reaction Status Date / Time No Known Allergies Allergy Verified 11/12/21 19:22 Physical Exam Vitals: Vital Signs Temp Pulse Pulse Resp BP BP Pulse Ox 11/13/21 08:00 96.1 F L 67 16 154/59 99 11/13/21 04:00 77 18 187/90 100 11/12/21 22:23 98.4 F 81 20 192/82 99 11/12/21 21:40 77 18 167/67 97 11/12/21 17:47 98.4 F 76 18 178/80 100 Intake and Output 11/12/21 11/13/21 11/13/21 22:59 06:59 14:59 Intake Total 485 0 Balance 485 0 Intake: Oral 485 0 Other: Voiding Method Toilet Urinal # Voids 1 Weight 68.039 kg Results 11/13/21 07:28 11/13/21 07:28 Cardiac Enzymes 11/12/21 11/12/21 11/12/21 Range/Units 17:58 17:58 21:04 AST 65 H (17-59) U/L Troponin I 0.041 H* 0.045 H* (0.000-0.034) ng/mL 11/13/21 Range/Units 00:27 AST (17-59) U/L Troponin I 0.037 H* (0.000-0.034) ng/mL Coagulation 11/12/21 Range/Units 17:58 PT 11.3 (9.0-12.0) sec APTT 23.4 (22.0-30.0) sec CBC 11/12/21 11/13/21 Range/Units 17:58 07:28 WBC 5.1 5.2 (3.8-10.6) k/uL RBC 3.01 L 3.01 L (4.30-5.90) m/uL Hgb 8.9 L D 8.9 L (13.0-17.5) gm/dL Hct 28.0 L 28.1 L (39.0-53.0) % Plt Count 194 160 (150-450) k/uL Comprehensive Metabolic Panel 11/12/21 11/13/21 Range/Units 17:58 07:28 Sodium 140 140 (137-145) mmol/L Potassium 4.4 4.0 (3.5-5.1) mmol/L Chloride 110 H 115 H (98-107) mmol/L Carbon Dioxide 23 21 L (22-30) mmol/L BUN 39 H 36 H (9-20) mg/dL Creatinine 1.73 H 1.37 H (0.66-1.25) mg/dL Glucose 151 H 121 H (74-99) mg/dL Calcium 8.6 8.4 (8.4-10.2) mg/dL AST 65 H (17-59) U/L ALT 49 (4-49) U/L Alkaline Phosphatase 72 (38-126) U/L Total Protein 6.7 (6.3-8.2) g/dL Albumin 3.4 L (3.5-5.0) g/dL Current Medications Generic Name Dose Route Start Last Admin Trade Name Freq PRN Reason Stop Dose Admin Amlodipine Besylate 5 mg 11/13/21 09:00 Amlodipine 5 Mg Tab PO DAILY [facility] Aspirin 325 mg 11/13/21 09:00 Aspirin 325 Mg Tab PO DAILY [facility] Atorvastatin Calcium 40 mg 11/12/21 23:15 11/12/21 23:26 Atorvastatin 40 Mg Tab PO 40 mg HS [facility] Administration Carvedilol 12.5 mg 11/13/21 07:30 11/13/21 06:28 Carvedilol 12.5 Mg Tab PO 12.5 mg BID-W/MEALS [facility] Administration Clopidogrel Bisulfate 75 mg 11/13/21 09:00 Clopidogrel 75 Mg Tab PO DAILY [facility] Ezetimibe 10 mg 11/12/21 23:30 11/12/21 23:26 Ezetimibe 10 Mg Tab PO 10 mg HS [facility] Administration Furosemide 40 mg 11/13/21 09:00 Furosemide 40 Mg Tab PO DAILY [facility] Gabapentin 100 mg 11/12/21 23:15 11/12/21 23:26 Gabapentin 100 Mg Cap PO 100 mg BID [facility] Administration Hydralazine HCl 100 mg 11/12/21 23:15 11/12/21 23:26 Hydralazine Hcl 50 Mg Tab PO 100 mg TID [facility] Administration Insulin Aspart 5 unit 11/13/21 07:30 11/13/21 06:08 Insulin Aspart (Novolog) 100 Unit/Ml Vial SQ Not Given AC-TID [facility] Insulin Detemir 5 unit 11/13/21 07:00 11/13/21 06:08 Insulin Detemir (Levemir) 100 Unit/Ml Syr SQ Not Given DAILY@0700 [facility] Magnesium Oxide 400 mg 11/13/21 09:00 Magnesium Oxide 400 Mg Tab PO DAILY [facility] Melatonin 5 mg 11/12/21 23:02 Melatonin 5 Mg Tablet PO HS PRN Insomnia Nitroglycerin 0.4 mg 02/03/22 18:56 Nitroglycerin Sl Tabs 0.4 Mg Tab SUBLINGUAL Q5M PRN Chest Pain Nitroglycerin 1 inch 11/13/21 00:00 11/13/21 05:41 Nitroglycerin Oint 1 Inch/Gm Packet TOPICAL Not Given Q6HR [facility] Oxycodone HCl 5 mg 11/12/21 23:02 Oxycodone Hcl 5 Mg Tab PO QID PRN Pain Quetiapine Fumarate 25 mg 11/12/21 23:15 11/12/21 23:26 Quetiapine 25 Mg Tab PO 25 mg HS [facility] Administration Sertraline HCl 25 mg 11/13/21 09:00 Sertraline 25 Mg Tab PO DAILY [facility] Spironolactone 25 mg 11/13/21 09:00 Spironolactone 25 Mg Tab PO DAILY [facility] Intake and Output 11/12/21 11/13/21 11/13/21 22:59 06:59 14:59 Intake Total 485 0 Balance 485 0 Intake: Oral 485 0 Other: Voiding Method Toilet Urinal # Voids 1 Weight 68.039 kg 11/13/21 07:28 11/13/21 07:28
[2021-11-13] MEDS ORDERED: ASPIRIN 81 MG PO SCH (09:00)
[2021-11-13] MEDS ORDERED: ASPIRIN 325 MG TAB PO SCH (09:00)
[2021-11-13] MEDS ORDERED: INSULIN DETEMIR 100 UNIT/ML SQ SCH (09:00)
[2021-11-13] MEDS ORDERED: NON FORMULARY DRUG (Omega-3 Acid Ethyl Esters [Lovaza] 1 GM Capsule) PO SCH (09:00)
[2021-11-13] MEDS: LOSARTAN 25 MG TAB PO SCH (09:15)
[2021-11-13 11:12] LABS: HDL Cholesterol 52.5 mg/dL (40.00-60.00); Triglycerides 41.3 mg/dL (0.00-149.00)
[2021-11-13 11:23] LABS: Chol/HDL Ratio 2.38 Ratio; LDL Cholesterol,Direct Reflex 67.8 mg/dL (0.00-129.00)
[2021-11-13 11:38] LABS: Glucose,Whole Blood 284 mg/dL (75-99)
--- NOTE | 2021-11-13 13:11 | P.HPIM ---
History of Present Illness Patient is on [id number]-oug male with significant cardiac history came in with the complaint of chest discomfort on the left side of the chest which is reproducible, nonpleuritic not associated with food nonradiating persistent shortness of breath and the orthopnea, constant as per the patient moderate severity. Etiology evaluated the patient patient appears to have musculoskeletal chest pain, medical records from [facility] are being obtained patient has extensive cardiac history/habits severe coronary artery disease ischemic cardiomyopathy severe mitral regurgitation usually follows up with [facility] patient had an biventricular ICD which was replaced about a week ago. Patient denied any dizziness or lightheadedness. Patient appears to have noncardiac chest pain. Patient is otherwise stable wanted to discharge the patient if cleared by cardiology but the patient's guardian wanted him to be placed at a long-term facility. If we're able to find a place and if cardiology clears him today patient will be discharged today patient has creatinine of 1.37 which is his baseline patient is chronic kidney disease stage III. Patient has mild but stable elevation of troponin which is secondary to kidney disease REVIEW OF SYSTEMS: CONSTITUTIONAL: No fever, no malaise, no fatigue. HEENT: No recent visual problems or hearing problems. Denied any sore throat. CARDIOVASCULAR: No orthopnea, PND, no palpitations, no syncope. PULMONARY: No shortness of breath, no cough, no hemoptysis. GASTROINTESTINAL: No diarrhea, no nausea, no vomiting, no abdominal pain. NEUROLOGICAL: No headaches, no weakness, no numbness. HEMATOLOGICAL: Denies any bleeding or petechiae. GENITOURINARY: Denies any burning micturition, frequency, or urgency. MUSCULOSKELETAL/RHEUMATOLOGICAL: Denies any joint pain, swelling, or any muscle pain. ENDOCRINE: Denies any polyuria or polydipsia. The rest of the 14-point review of systems is negative. PHYSICAL EXAMINATION: GENERAL: The patient is alert and oriented x3, not in any acute distress. Well developed, well nourished. HEENT: Pupils are round and equally reacting to light. EOMI. No scleral icterus. No conjunctival pallor. Normocephalic, atraumatic. No pharyngeal erythema. No thyromegaly. CARDIOVASCULAR: S1 and S2 present. No murmurs, rubs, or gallops. PULMONARY: Chest is clear to auscultation, no wheezing or crackles. Patient hasn't produced with chest pain which appears to be mostly subjective with light pressure on the left chest patient jumps ABDOMEN: Soft, nontender, nondistended, normoactive bowel sounds. No palpable organomegaly. MUSCULOSKELETAL: No joint swelling or deformity. EXTREMITIES: No cyanosis, clubbing, or pedal edema. NEUROLOGICAL: Gross neurological examination did not reveal any focal deficits. SKIN: No rashes. Assessment and plan -Chest pain: Rule out a concurrent syndromes patient appears to have musculoskeletal chest pain, awaiting clearance from cardiology cardiology is obtaining medical records from [facility]. -Congestive heart failure chronic systolic dysfunction he of around 30-35% ischemic cardiomyopathy not in acute exacerbation patient appears to be fairly euvolemic continue with the oral Lasix patient has elevated BNP which is probably chronic and chronic heart failure. 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 -Anemia of chronic disease -Coronary artery disease -Type 2 diabetes mellitus -COPD without any acute exacerbation -Chronic hepatitis C -Hyperlipidemia -Peripheral vascular disease For about mentioned chronic medical problems patient will be resumed on appropriate home medications DVT prophylaxis: Patient is presently off IV heparin patient will be started on subcutaneous Past Medical History Past Medical History: Cancer, Chest Pain / Angina, Heart Failure, COPD, Diabetes Mellitus, Eye Disorder, Hyperlipidemia, Hypertension, Myocardial Infarction (HI), Myocardial Infarction (non Q-wave), Osteoarthritis (OA), Prostate Disorder, Renal Disease Additional Past Medical History / Comment(s): "Needs Valve replacement."-Severe mitral vavle reguritation, Systolic HF, Ischemic cardiomyopathy, LBBB, Suicidal ideations, HX PROSTATE CANCER 30 yrs ago, BELLS PALSY, GLAUCOMA, SHORT TERM MEMORY LOSS. Lost 23 lbs recently and continues with decreased appetite. Hx CoVid December 2019. Insomnia. Chronic Hepatitis C, Stage 3 kidney disease - pacemaker replaced 2021 Last Myocardial Infarction Date:: 2018 History of Any Multi-Drug Resistant Organisms: None Reported Past Surgical History: Heart Catheterization, Joint Replacement, Pacemaker, Prostate Surgery Additional Past Surgical History / Comment(s): Left hip replacement. Past Anesthesia/Blood Transfusion Reactions: No Reported Reaction Type of Cardiac Device: Permanent Pacemaker Device Placement Date:: April 2021 Past Psychological History: No Psychological Hx Reported Smoking Status: Never smoker Past Alcohol Use History: Occasional Additional Past Alcohol Use History / Comment(s): Pt states he quit smoking 3 months ago. ; pt told this RN that he has never been a smoker Past Drug Use History: Marijuana Additional Drug Use History / Comment(s): Hasn't used Marijuana for 2 yrs ago. - Past Family History Mother History Unknown: Yes Medications and Allergies Home Medications Medication Instructions Recorded Confirmed Type Aspirin 81 mg PO DAILY 05/15/14 11/12/21 History Atorvastatin Calcium [Lipitor] 40 mg PO HS 05/15/14 11/12/21 History Clopidogrel [Plavix] 75 mg PO DAILY 05/15/14 11/12/21 History Ezetimibe [Zetia] 10 mg PO HS 07/25/20 11/12/21 History hydrALAZINE HCL [Apresoline] 100 mg PO TID 07/25/20 11/12/21 History Albuterol Inhaler [Ventolin Hfa 2 puff INHALATION RT-Q4H PRN 08/17/21 11/12/21 History Inhaler] Carvedilol [Coreg] 12.5 mg PO BID 08/17/21 11/12/21 History Furosemide [Lasix] 40 mg PO DAILY 08/17/21 11/12/21 History INSULIN ASPART (NovoLOG) [NovoLOG 5 unit SQ AC-TID 08/17/21 11/12/21 History (formulary)] Oxymetazoline 0.05% Nasl [place] 2 spray EA NOSTRIL BID PRN 08/17/21 11/12/21 History [Afrin 0.05% Nasal [place]] Spironolactone 25 mg PO DAILY 08/17/21 11/12/21 History Umeclidinium Brm/Vilanterol Tr 1 puff INHALATION RT-DAILY 08/17/21 11/12/21 History [Anoro Ellipta 62.5-25 Mcg INH] amLODIPine [Norvasc] 5 mg PO DAILY 08/17/21 11/12/21 History Melatonin 5 mg PO HS PRN #14 tablet 08/19/21 11/12/21 Rx Sertraline [Zoloft] 25 mg PO DAILY 14 Days #14 tab 08/19/21 11/12/21 Rx Gabapentin [Neurontin] 100 mg PO BID #60 cap 08/27/21 11/12/21 Rx Insulin Detemir [Levemir Flextouch 5 units SQ DAILY 09/24/21 11/12/21 History Pen] QUEtiapine [SEROquel] 25 mg PO HS 09/24/21 11/12/21 History Losartan Potassium [Cozaar] 25 mg PO DAILY 11/12/21 11/12/21 History Magnesium Oxide [Magox 400] 400 mg PO DAILY 11/12/21 11/12/21 History [place]-3 Acid Ethyl Esters [Lovaza] 2 gm PO BID 11/12/21 11/12/21 History oxyCODONE HCL [OxyIR] 5 mg PO QID PRN 11/12/21 11/12/21 History Allergies Allergy/AdvReac Type Severity Reaction Status Date / Time No Known Allergies Allergy Verified 11/12/21 19:22 Physical Exam Vitals: Vital Signs Temp Pulse Pulse Resp BP BP Pulse Ox 11/13/21 11:46 96.5 F L 77 18 143/66 99 11/13/21 08:00 96.1 F L 67 16 154/59 99 11/13/21 04:00 77 18 187/90 100 11/12/21 22:23 98.4 F 81 20 192/82 99 11/12/21 21:40 77 18 167/67 97 11/12/21 17:47 98.4 F 76 18 178/80 100 Intake and Output 11/12/21 11/13/21 11/13/21 22:59 06:59 14:59 Intake Total 485 0 240 Balance 485 0 240 Intake: Oral 485 0 240 Other: Voiding Method Toilet Urinal # Voids 1 Weight 68.039 kg Results CBC & Chem 7: 11/13/21 07:28 11/13/21 07:28 Labs: Abnormal Lab Results - Last 24 Hours (Table) 11/12/21 11/12/21 11/12/21 Range/Units 17:58 17:58 17:58 RBC 3.01 L (4.30-5.90) m/uL Hgb 8.9 L D (13.0-17.5) gm/dL Hct 28.0 L (39.0-53.0) % RDW 17.1 H (11.5-15.5) % Chloride 110 H (98-107) mmol/L Carbon Dioxide (22-30) mmol/L BUN 39 H (9-20) mg/dL Creatinine 1.73 H (0.66-1.25) mg/dL Glucose 151 H (74-99) mg/dL POC Glucose (mg/dL) (75-99) mg/dL AST 65 H (17-59) U/L Troponin I 0.041 H* (0.000-0.034) ng/mL Albumin 3.4 L (3.5-5.0) g/dL 11/12/21 11/13/21 11/13/21 Range/Units 21:04 00:27 06:06 RBC (4.30-5.90) m/uL Hgb (13.0-17.5) gm/dL Hct (39.0-53.0) % RDW (11.5-15.5) % Chloride (98-107) mmol/L Carbon Dioxide (22-30) mmol/L BUN (9-20) mg/dL Creatinine (0.66-1.25) mg/dL Glucose (74-99) mg/dL POC Glucose (mg/dL) 119 H (75-99) mg/dL AST (17-59) U/L Troponin I 0.045 H* 0.037 H* (0.000-0.034) ng/mL Albumin (3.5-5.0) g/dL 11/13/21 11/13/21 11/13/21 Range/Units 07:28 07:28 11:37 RBC 3.01 L (4.30-5.90) m/uL Hgb 8.9 L (13.0-17.5) gm/dL Hct 28.1 L (39.0-53.0) % RDW 16.8 H (11.5-15.5) % Chloride 115 H (98-107) mmol/L Carbon Dioxide 21 L (22-30) mmol/L BUN 36 H (9-20) mg/dL Creatinine 1.37 H (0.66-1.25) mg/dL Glucose 121 H (74-99) mg/dL POC Glucose (mg/dL) 284 H (75-99) mg/dL AST (17-59) U/L Troponin I (0.000-0.034) ng/mL Albumin (3.5-5.0) g/dL
--- NOTE | 2021-11-13 13:12 | P.DS ---
Providers Date of admission: 11/12/21 18:56 Attending physician: Myron Koehler Consults: 11/12/21 18:56 Consult Physician Urgent Consulting Provider: [facility] Consult Reason/Comments: Chest pain Do you want consulting provider notified?: Yes Primary care physician: Mango Cook [facility] Course: Please refer to my HPI for further details Plan - Discharge Summary Discharge Rx Participant: Yes New Discharge Prescriptions: Continue Clopidogrel [Plavix] 75 mg PO DAILY Atorvastatin Calcium [Lipitor] 40 mg PO HS Aspirin 81 mg PO DAILY Ezetimibe [Zetia] 10 mg PO HS hydrALAZINE HCL [Apresoline] 100 mg PO TID Albuterol Inhaler [Ventolin Hfa Inhaler] 2 puff INHALATION RT-Q4H PRN PRN Reason: Shortness Of Breath amLODIPine [Norvasc] 5 mg PO DAILY INSULIN ASPART (NovoLOG) [NovoLOG (formulary)] 5 unit SQ AC-TID Umeclidinium Brm/Vilanterol Tr [Anoro Ellipta 62.5-25 Mcg INH] 1 puff INHALATION RT-DAILY Melatonin 5 mg PO HS PRN #14 tablet PRN Reason: Insomnia Sertraline [Zoloft] 25 mg PO DAILY 14 Days #14 tab Insulin Detemir [Levemir Flextouch Pen] 5 units SQ DAILY QUEtiapine [SEROquel] 25 mg PO HS Magnesium Oxide [Magox 400] 400 mg PO DAILY oxyCODONE HCL [OxyIR] 5 mg PO QID PRN PRN Reason: Pain Carvedilol [Coreg] 12.5 mg PO BID Furosemide [Lasix] 40 mg PO DAILY Oxymetazoline 0.05% Nasl [place] [Afrin 0.05% Nasal [place]] 2 spray EA NOSTRIL BID PRN PRN Reason: Congestion Spironolactone 25 mg PO DAILY Gabapentin [Neurontin] 100 mg PO BID #60 cap Losartan Potassium [Cozaar] 25 mg PO DAILY [place]-3 Acid Ethyl Esters [Lovaza] 2 gm PO BID Discharge Medication List Aspirin 81 mg PO DAILY 05/15/14 [History] Atorvastatin Calcium [Lipitor] 40 mg PO HS 05/15/14 [History] Clopidogrel [Plavix] 75 mg PO DAILY 05/15/14 [History] Ezetimibe [Zetia] 10 mg PO HS 10/16/20 [History] hydrALAZINE HCL [Apresoline] 100 mg PO TID 07/25/20 [History] Albuterol Inhaler [Ventolin Hfa Inhaler] 2 puff INHALATION RT-Q4H PRN 08/17/21 [History] Carvedilol [Coreg] 12.5 mg PO BID 08/17/21 [History] Furosemide [Lasix] 40 mg PO DAILY 08/17/21 [History] INSULIN ASPART (NovoLOG) [NovoLOG (formulary)] 5 unit SQ AC-TID 08/17/21 [History] Oxymetazoline 0.05% Nasl [place] [Afrin 0.05% Nasal [place]] 2 spray EA NOSTRIL BID PRN 08/17/21 [History] Spironolactone 25 mg PO DAILY 08/17/21 [History] Umeclidinium Brm/Vilanterol Tr [Anoro Ellipta 62.5-25 Mcg INH] 1 puff INHALATION RT-DAILY 08/17/21 [History] amLODIPine [Norvasc] 5 mg PO DAILY 08/17/21 [History] Melatonin 5 mg PO HS PRN #14 tablet 08/19/21 [Rx] Sertraline [Zoloft] 25 mg PO DAILY 14 Days #14 tab 08/19/21 [Rx] Gabapentin [Neurontin] 100 mg PO BID #60 cap 08/27/21 [Rx] Insulin Detemir [Levemir Flextouch Pen] 5 units SQ DAILY 09/24/21 [History] QUEtiapine [SEROquel] 25 mg PO HS 09/24/21 [History] Losartan Potassium [Cozaar] 25 mg PO DAILY 11/12/21 [History] Magnesium Oxide [Magox 400] 400 mg PO DAILY 11/12/21 [History] [place]-3 Acid Ethyl Esters [Lovaza] 2 gm PO BID 11/12/21 [History] oxyCODONE HCL [OxyIR] 5 mg PO QID PRN 11/12/21 [History] Follow up Appointment(s)/Referral(s): Mango Cook DO [Primary Care Provider] - 3 Days Discharge Disposition: TRANSFER TO SNF/ECF
--- NOTE | 2021-11-13 15:37 | ECHOF ---
Referral Reason:cp MEASUREMENTS -------- HEIGHT: 152.4 cm WEIGHT: 68.0 kg BP: IVSd: 1.7 cm (0.6 - 1.1) LVIDd: 4.5 cm (3.9 - 5.3) LVPWd: 2.1 cm (0.6 - 1.1) IVSs: 2.2 cm LVIDs: 3.7 cm LVPWs: 2.4 cm LA Diam: 4.9 cm (2.7 - 3.8) LAESV Index (A-L): 49.45 ml/m Ao Diam: 3.7 cm (2.0 - 3.7) AV Cusp: 1.5 cm (1.5 - 2.6) LA Diam: 4.1 cm (2.7 - 3.8) MV EXCURSION: 16.312 mm (> 18.000) MV EF SLOPE: 55 mm/s (70 - 150) EPSS: 1.2 cm MV E Arash: 0.72 m/s MV DecT: 319 ms MV A Arash: 1.12 m/s MV E/A Ratio: 0.64 AV maxP.87 mmHg AV meanP.11 mmHg RAP: 5.00 mmHg RVSP: 41.24 mmHg FINDINGS -------- Paced rhythm. This was a technically good study. The left ventricular size is normal. There is severe concentric left ventricular hypertrophy. Ove rall left ventricular systolic function is low-normal with, an EF between 50 - 55 %. Inferior Hypok inesis The right ventricle is normal in size. The left atrium is normal in size. Normal LA size by volume 22+/-6 ml/m2. The right atrial size is normal. There is mild aortic stenosis present. Peak/mean gradient across the Aortic Valve is 18.87mmHg / 8. 11mmHg. Moderate mitral regurgitation is present. The peak and mean MV gradients are 11.25mmHg 3.20mmHg as measured by doppler. Pt had MV Clip. Mild tricuspid regurgitation present. There is mild pulmonary hypertension. The right ventricular systolic pressure, as measured by Doppler, is 41.24mmHg. Trace/mild (physiologic) pulmonic regurgitation. There is no pericardial effusion. CONCLUSIONS -------- 1. The left ventricular size is normal. 2. There is severe concentric left ventricular hypertrophy. 3. Overall left ventricular systolic function is low-normal with, an EF between 50 - 55 %. 4. Inferior Hypokinesis 5. The right ventricle is normal in size. 6. The right atrial size is normal. 7. There is mild aortic stenosis present. 8. The peak and mean MV gradients are 11.25mmHg 3.20mmHg as measured by doppler. 9. Pt had MV Clip. 10. Mild tricuspid regurgitation present. 11. There is mild pulmonary hypertension. 12. The right ventricular systolic pressure, as measured by Doppler, is 41.24mmHg. 13. Trace/mild (physiologic) pulmonic regurgitation. 14. There is no pericardial effusion. ELECTRICAL INSTRUMENTATION TECHNICIAN: Yesi Flowers RDCS
[2021-11-13 16:32] LABS: Glucose,Whole Blood 106 mg/dL (75-99)
[2021-11-13] MEDS: EZETIMIBE 10 MG TAB PO SCH (20:23)
[2021-11-13] MEDS: ATORVASTATIN 40 MG TAB PO SCH (20:23)
[2021-11-13] MEDS: HEPARIN SODIUM,PORCINE/PF 5,000 UNIT/0.5 ML SYRINGE SQ SCH (20:23)
[2021-11-13] MEDS: QUEtiapine 25 MG TAB PO SCH (20:23)
[2021-11-13 21:03] LABS: Glucose,Whole Blood 186 mg/dL (75-99)
[2021-11-14 06:15] LABS: Glucose,Whole Blood 119 mg/dL (75-99)
[2021-11-14] MEDS: carvediloL 12.5 MG TAB PO SCH (06:47)
[2021-11-14] MEDS: INSULIN DETEMIR (LEVEMIR) 100 UNIT/ML SYR SQ SCH (06:47)
[2021-11-14] MEDS: INSULIN ASPART (NovoLOG) 100 UNIT/ML VIAL SQ SCH ×2 (06:47→12:24)
[2021-11-14 08:43] LABS: Calcium 8.3 mg/dL (8.4-10.2)
[2021-11-14] MEDS ORDERED: ASPIRIN 81 MG PO SCH (09:00)
[2021-11-14] MEDS: GABAPENTIN 100 MG CAP PO SCH (09:18)
[2021-11-14] MEDS: LOSARTAN 25 MG TAB PO SCH (09:18)
[2021-11-14] MEDS: hydrALAZINE HCL 50 MG TAB PO SCH ×2 (09:18→15:28)
[2021-11-14] MEDS: MAGNESIUM OXIDE 400 MG TAB PO SCH (09:18)
[2021-11-14] MEDS: SERTRALINE 25 MG TAB PO SCH (09:19)
[2021-11-14] MEDS: FUROSEMIDE 40 MG TAB PO SCH (09:19)
[2021-11-14] MEDS: amLODIPine 5 MG TAB PO SCH (09:19)
[2021-11-14] MEDS: CLOPIDOGREL 75 MG TAB PO SCH (09:19)
[2021-11-14] MEDS: SPIRONOLACTONE 25 MG TAB PO SCH (09:19)
[2021-11-14] MEDS: HEPARIN SODIUM,PORCINE/PF 5,000 UNIT/0.5 ML SYRINGE SQ SCH (09:19)
--- NOTE | 2021-11-14 11:37 | P.PN ---
Subjective Progress Note Date: 11/14/21 PROGRESS NOTE The patient is a 75-year-old male with known history of severe ischemic cardiomyopathy, severe CAD and mitral regurgitation who recently underwent pericardiocentesis secondary to perforation of his pacemaker wire to the right ventricle, done at [facility]. He presented was respirophasic chest pain, secondary to his recent procedure. He is feeling better today. He denies any chest discomfort and his breathing is stable. He denies any dizziness or palpitations. He denies any nausea or vomiting. He continues to be on amlodipine 5 mg daily, aspirin once a day, Lipitor 40 mg d aily, Coreg 12-1/2 mg twice a day, Lasix 40 mg daily, Zetia 10 mg daily, hydralazine 20 mg 3 times a day, losartan 25 mg daily, spironolactone 25 mg daily. PHYSICAL EXAMINATION: Blood pressure [144/60] heart rate [66] LUNGS: [Clear to auscultation] HEART: [Regular rate and rhythm, S1, S2. No S3. Holosystolic murmur at the apex] ABDOMEN: [Soft, nontender, no organomegaly] EXTREMETIES: [No edema] LAB: BUN 35, creatinine 1.49 IMPRESSION: 1. [ Chest discomfort, related to the recent pericardial effusion, no evidence of acute coronary syndrome] 2. [ Severe coronary artery disease, with severe ischemic cardiomyopathy] 3. [ Severe mitral regurgitation, being evaluated at [facility] for m itral clip] 4. [ Peripheral vessel disease] PLAN: 1. Continue present therapy 2. [ Increase physical activity] 3. [ Probable discharge home today] 4. [ Follow up at [facility] for further evaluation of the mitral valve.] Objective - Vital Signs Vital signs: Vital Signs Temp 98.3 F 11/14/21 09:14 Pulse 66 11/14/21 09:14 Resp 16 11/14/21 09:14 BP 144/66 11/14/21 09:14 Pulse Ox 98 11/14/21 09:14 Intake & Output 11/13/21 11/14/21 11/14/21 18:59 06:59 18:59 Intake Total 720 1455 840 Balance 720 1455 840 Intake: Oral 720 1455 840 Other: Voiding Method Toilet Toilet Urinal Urinal # Voids 1 1 - Labs CBC & Chem 7: 11/13/21 07:28 11/14/21 08:09 Labs: Abnormal Lab Results - Last 24 Hours (Table) 11/13/21 11/13/21 11/13/21 Range/Units 11:37 16:30 20:58 Chloride (98-107) mmol/L BUN (9-20) mg/dL Creatinine (0.66-1.25) mg/dL Glucose (74-99) mg/dL POC Glucose (mg/dL) 284 H 106 H 186 H (75-99) mg/dL Calcium (8.4-10.2) mg/dL 11/14/21 11/14/21 Range/Units 06:08 08:09 Chloride 111 H (98-107) mmol/L BUN 35 H (9-20) mg/dL Creatinine 1.49 H (0.66-1.25) mg/dL Glucose 228 H (74-99) mg/dL POC Glucose (mg/dL) 119 H (75-99) mg/dL Calcium 8.3 L (8.4-10.2) mg/dL
[2021-11-14 11:50] LABS: Glucose,Whole Blood 257 mg/dL (75-99)
[2021-11-14 12:23] VITALS: RESP 18
--- NOTE | 2021-11-14 12:37 | P.DS ---
Providers Date of admission: 11/12/21 18:56 Attending physician: Myron Koehler Consults: 11/12/21 18:56 Consult Physician Urgent Consulting Provider: [facility] Consult Reason/Comments: Chest pain Do you want consulting provider notified?: Yes Primary care physician: Mango Cook [facility] Course: Patient is on [id number] male with significant cardiac history came in with the complaint of chest discomfort on the left side of the chest which is reproducible, nonpleuritic not associated with food nonradiating persistent shortness of breath and the orthopnea, constant as per the patient moderate severity. Etiology evaluated the patient patient appears to have musculoskeletal chest pain, medical records from [facility] are being obtained patient has extensive cardiac history/habits severe coronary artery disease ischemic cardiomyopathy severe mitral regurgitation usually follows up with [facility] patient had an biventricular ICD which was replaced about a week ago. Patient denied any dizziness or lightheadedness. Patient appears to have noncardiac chest pain. Patient is otherwise stable wanted to discharge the patient if cleared by cardiology but the patient's guardian wanted him to be placed at a long-term facility. If we're able to find a place and if cardiology clears him today patient will be discharged today patient has creatinine of 1.37 which is his baseline patient is chronic kidney disease stage III. Patient has mild but stable elevation of troponin which is secondary to kidney disease 11/14/2021 Cardiology didn't recommend any further intervention. Patient ended up staying the hospital as the patient guardian wanted him to be placed in a subacute rehabilitation. Patient is being discharged to subacute rehabilitation. PHYSICAL EXAMINATION: GENERAL: The patient is alert and oriented x3, not in any acute distress. Well developed, well nourished. HEENT: Pupils are round and equally reacting to light. EOMI. No scleral icterus. No conjunctival pallor. Normocephalic, atraumatic. No pharyngeal erythema. No thyromegaly. CARDIOVASCULAR: S1 and S2 present. No murmurs, rubs, or gallops. PULMONARY: Chest is clear to auscultation, no wheezing or crackles. Patient hasn't produced with chest pain which appears to be mostly subjective with light pressure on the left chest patient jumps ABDOMEN: Soft, nontender, nondistended, normoactive bowel sounds. No palpable organomegaly. MUSCULOSKELETAL: No joint swelling or deformity. EXTREMITIES: No cyanosis, clubbing, or pedal edema. NEUROLOGICAL: Gross neurological examination did not reveal any focal deficits. SKIN: No rashes. Assessment and plan -Chest pain: Rule out a concurrent syndromes patient appears to have musculoskeletal chest pain, cleared by cardiology will be discharged today. Also skeletal pain is probably secondary to inflammation from recent AICD and pacemaker placement -Congestive heart failure chronic systolic dysfunction he of around 30-35% i schemic cardiomyopathy not in acute exacerbation patient appears to be fairly euvolemic continue with the oral Lasix patient has elevated BNP which is probably chronic and chronic heart failure. 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 -Anemia of chronic disease -Coronary artery disease -Type 2 diabetes mellitus -COPD without any acute exacerbation -Chronic hepatitis C -Hyperlipidemia -Peripheral vascular disease Plan - Discharge Summary Discharge Rx Participant: Yes New Discharge Prescriptions: Continue Clopidogrel [Plavix] 75 mg PO DAILY Atorvastatin Calcium [Lipitor] 40 mg PO HS Aspirin 81 mg PO DAILY Ezetimibe [Zetia] 10 mg PO HS hydrALAZINE HCL [Apresoline] 100 mg PO TID Albuterol Inhaler [Ventolin Hfa Inhaler] 2 puff INHALATION RT-Q4H PRN PRN Reason: Shortness Of Breath amLODIPine [Norvasc] 5 mg PO DAILY INSULIN ASPART (NovoLOG) [NovoLOG (formulary)] 5 unit SQ AC-TID Umeclidinium Brm/Vilanterol Tr [Anoro Ellipta 62.5-25 Mcg INH] 1 puff INHALATION RT-DAILY Melatonin 5 mg PO HS PRN #14 tablet PRN Reason: Insomnia Sertraline [Zoloft] 25 mg PO DAILY 14 Days #14 tab Insulin Detemir [Levemir Flextouch Pen] 5 units SQ DAILY QUEtiapine [SEROquel] 25 mg PO HS Magnesium Oxide [Magox 400] 400 mg PO DAILY Gabapentin [Neurontin] 100 mg PO BID #4 cap Carvedilol [Coreg] 12.5 mg PO BID Furosemide [Lasix] 40 mg PO DAILY Oxymetazoline 0.05% Nasl [place] [Afrin 0.05% Nasal [place]] 2 spray EA NOSTRIL BID PRN PRN Reason: Congestion Spironolactone 25 mg PO DAILY Losartan Potassium [Cozaar] 25 mg PO DAILY [place]-3 Acid Ethyl Esters [Lovaza] 2 gm PO BID oxyCODONE HCL [OxyIR] 5 mg PO QID PRN #8 tab PRN Reason: Pain Discharge Medication List Aspirin 81 mg PO DAILY 05/15/14 [History] Atorvastatin Calcium [Lipitor] 40 mg PO HS 05/15/14 [History] Clopidogrel [Plavix] 75 mg PO DAILY 05/15/14 [History] Ezetimibe [Zetia] 10 mg PO HS 07/25/20 [History] hydrALAZINE HCL [Apresoline] 100 mg PO TID 07/25/20 [History] Albuterol Inhaler [Ventolin Hfa Inhaler] 2 puff INHALATION RT-Q4H PRN 08/17/21 [History] Carvedilol [Coreg] 12.5 mg PO BID 08/17/21 [History] Furosemide [Lasix] 40 mg PO DAILY 08/17/21 [History] INSULIN ASPART (NovoLOG) [NovoLOG (formulary)] 5 unit SQ AC-TID 08/17/21 [History] Oxymetazoline 0.05% Nasl [place] [Afrin 0.05% Nasal [place]] 2 spray EA NOSTRIL BID PRN 08/17/21 [History] Spironolactone 25 mg PO DAILY 08/17/21 [History] Umeclidinium Brm/Vilanterol Tr [Anoro Ellipta 62.5-25 Mcg INH] 1 puff INHALATION RT-DAILY 08/17/21 [History] amLODIPine [Norvasc] 5 mg PO DAILY 08/17/21 [History] Melatonin 5 mg PO HS PRN #14 tablet 08/19/21 [Rx] Sertraline [Zoloft] 25 mg PO DAILY 14 Days #14 tab 08/19/21 [Rx] Insulin Detemir [Levemir Flextouch Pen] 5 units SQ DAILY 09/24/21 [History] QUEtiapine [SEROquel] 25 mg PO HS 09/24/21 [History] Losartan Potassium [Cozaar] 25 mg PO DAILY 11/12/21 [History] Magnesium Oxide [Magox 400] 400 mg PO DAILY 11/12/21 [History] [place]-3 Acid Ethyl Esters [Lovaza] 2 gm PO BID 11/12/21 [History] Gabapentin [Neurontin] 100 mg PO BID #4 cap 11/13/21 [Rx] oxyCODONE HCL [OxyIR] 5 mg PO QID PRN #8 tab 11/13/21 [Rx] Follow up Appointment(s)/Referral(s): Ashu Hussein MD [STAFF PHYSICIAN] - 3 Weeks Mango Cook DO [Primary Care Provider] - 3 Days Discharge Disposition: TRANSFER TO SNF/ECF
[2021-11-14 15:27] VITALS: BP 172/78; PULSE 71; TEMP 97.7
[2021-11-14 16:31] LABS: Glucose,Whole Blood 140 mg/dL (75-99)
[2021-11-14] MEDS ORDERED: HALOPERIDOL LACTATE 5 MG/ML 1 ML VIAL IM STA (17:47)
== END 2021-11-14 18:15 ==
LOC: EC 17:45 → 3SCARD 18:56
PROVIDERS: ADMIT Hospitalist; ATTEND Hospitalist
DX: R07.89 Other chest pain (principal); I13.0 Hypertensive heart and chronic kidney disease with heart failure and stage 1 through stage 4 chronic kidney disease, or unspecified chronic kidney disease; I50.22 Chronic systolic (congestive) heart failure; N18.30 Chronic kidney disease, stage 3 unspecified; I25.2 Old myocardial infarction; E11.51 Type 2 diabetes mellitus with diabetic peripheral angiopathy without gangrene; E11.22 Type 2 diabetes mellitus with diabetic chronic kidney disease; D63.8 Anemia in other chronic diseases classified elsewhere; I25.10 Atherosclerotic heart disease of native coronary artery without angina pectoris; J44.9 Chronic obstructive pulmonary disease, unspecified; B18.2 Chronic viral hepatitis C; E78.5 Hyperlipidemia, unspecified; E78.00 Pure hypercholesterolemia, unspecified; M19.90 Unspecified osteoarthritis, unspecified site; I25.5 Ischemic cardiomyopathy; G51.0 Bell's palsy; R42 Dizziness and giddiness; I25.82 Chronic total occlusion of coronary artery; I31.3 Pericardial effusion (noninflammatory); H40.9 Unspecified glaucoma; I34.0 Nonrheumatic mitral (valve) insufficiency; R41.3 Other amnesia; G47.00 Insomnia, unspecified; I44.7 Left bundle-branch block, unspecified; Z20.822 Contact with and (suspected) exposure to COVID-19; Z95.0 Presence of cardiac pacemaker; Z86.16 Personal history of COVID-19; Z95.5 Presence of coronary angioplasty implant and graft; Z96.642 Presence of left artificial hip joint; Z87.891 Personal history of nicotine dependence; Z85.46 Personal history of malignant neoplasm of prostate; Z79.82 Long term (current) use of aspirin; Z79.899 Other long term (current) drug therapy; Z79.02 Long term (current) use of antithrombotics/antiplatelets; Z79.4 Long term (current) use of insulin
CPT/HCPCS: 96372 ×2; 99285; 36415; 93005; 93306; 97162; 97166; 83880; 80061; 80053; 80048 ×2; 83735; 84484 ×2; 85025 ×2; 85610; 85730; 83721; 87635; 71046; G0378 ×3; J1630; J1644 ×2

== ENCOUNTER → 2022-08-26 | Outpatient (CLI) | payer MEDICARE ==
[2022-08-26 16:11] LABS: African American GFR (CKD) 37.9 (60.0-200.0); Anion Gap 14.4 mmol/L (10.00-18.00); BUN/Creat Ratio 10.82 Ratio (12.00-20.00); Calcium 8.5 mg/dL (8.7-10.3); Carbon Dioxide 31.5 mmol/L (20.0-27.5); Non-African American GFR(CKD) 32.7 (60.0-200.0)
== END | disposition home or self-care (01) ==
LOC: LABWHC1 10:01
PROVIDERS: ATTEND Internal Medicine Interventional Cardiology
DX: I25.5 Ischemic cardiomyopathy (principal); N18.9 Chronic kidney disease, unspecified
CPT/HCPCS: 36415; 80048; 83880

== ENCOUNTER 2023-04-20 13:04 | Emergency (ER) | payer MEDICARE ==
[2023-04-20 13:14] VITALS: RESP 18
[2023-04-20] MEDS ORDERED: OXYMETAZOLINE 0.05% NASL SPRAY 1 SPRAY BOTTLE NASAL STA (13:56)
--- NOTE | 2023-04-20 13:56 | ED ---
General Adult HPI - General Chief complaint: ENT Stated complaint: L side nose bleed Time Seen by Provider: 04/20/23 13:15 Source: patient, EMS, RN notes reviewed, old records reviewed Mode of arrival: EMS - History of Present Illness Initial comments: This is a 77-year-old male presents emergency department stating that he had a nosebleed. Patient states started stop. Patient denies any trauma except that he might have rubbed his nose. Patient denies any recent fever chills or cough per patient denies any congestion. Patient denies being sick recently. - Related Data Home Medications Medication Instructions Recorded Confirmed Aspirin 81 mg PO DAILY 05/15/14 11/12/21 Atorvastatin Calcium [Lipitor] 40 mg PO HS 05/15/14 11/12/21 Clopidogrel [Plavix] 75 mg PO DAILY 05/15/14 11/12/21 Ezetimibe [Zetia] 10 mg PO HS 07/25/20 11/12/21 hydrALAZINE HCL [Apresoline] 100 mg PO TID 07/25/20 11/12/21 Albuterol Inhaler [Ventolin Hfa 2 puff INHALATION RT-Q4H PRN 08/17/21 11/12/21 Inhaler] Furosemide [Lasix] 40 mg PO DAILY 08/17/21 11/12/21 INSULIN ASPART (NovoLOG) [NovoLOG 5 unit SQ AC-TID 08/17/21 11/12/21 (formulary)] Oxymetazoline 0.05% Nasl [place] 2 spray EA NOSTRIL BID PRN 08/17/21 11/12/21 [Afrin 0.05% Nasal [place]] Spironolactone 25 mg PO DAILY 08/17/21 11/12/21 Umeclidinium Brm/Vilanterol Tr 1 puff INHALATION RT-DAILY 08/17/21 11/12/21 [Anoro Ellipta 62.5-25 Mcg INH] amLODIPine [Norvasc] 5 mg PO DAILY 08/17/21 11/12/21 carvediloL [Coreg] 12.5 mg PO BID 08/17/21 11/12/21 Insulin Detemir [Levemir Flextouch 5 units SQ DAILY 09/24/21 11/12/21 Pen] QUEtiapine [SEROquel] 25 mg PO HS 09/24/21 11/12/21 Losartan Potassium [Cozaar] 25 mg PO DAILY 11/12/21 11/12/21 Magnesium Oxide [Magox 400] 400 mg PO DAILY 11/12/21 11/12/21 [place]-3 Acid Ethyl Esters [Lovaza] 2 gm PO BID 11/12/21 11/12/21 Previous Rx's Medication Instructions Recorded Melatonin 5 mg PO HS PRN #14 tablet 08/19/21 Sertraline [Zoloft] 25 mg PO DAILY 14 Days #14 tab 08/19/21 Gabapentin [Neurontin] 100 mg PO BID #4 cap 11/13/21 oxyCODONE HCL [OxyIR] 5 mg PO QID PRN #8 tab 11/13/21 Allergies Allergy/AdvReac Type Severity Reaction Status Date / Time No Known Allergies Allergy Verified 04/20/23 13:14 Review of Systems ROS Statement: Those systems with pertinent positive or pertinent negative responses have been documented in the HPI. ROS Other: All systems not noted in ROS Statement are negative. Past Medical History Past Medical History: Cancer, Chest Pain / Angina, Heart Failure, COPD, Diabetes Mellitus, Eye Disorder, Hyperlipidemia, Hypertension, Myocardial Infarction ([place]), Myocardial Infarction (non Q-wave), Osteoarthritis (OA), Prostate Disorder, Renal Disease Additional Past Medical History / Comment(s): "Needs Valve replacement."-Severe mitral vavle reguritation, Systolic HF, Ischemic cardiomyopathy, LBBB, Suicidal ideations, HX PROSTATE CANCER 30 yrs ago, BELLS PALSY, GLAUCOMA, SHORT TERM MEMORY LOSS. Hx CoVid December 2019. Insomnia. Chronic Hepatitis C, Stage 3 kidney disease - pacemaker replaced 2021 Last Myocardial Infarction Date:: 2018 History of Any Multi-Drug Resistant Organisms: None Reported Past Surgical History: Heart Catheterization, Joint Replacement, Pacemaker, Prostate Surgery Additional Past Surgical History / Comment(s): Left hip replacement. Past Anesthesia/Blood Transfusion Reactions: No Reported Reaction Type of Cardiac Device: Permanent Pacemaker Device Placement Date:: April 2021 Past Psychological History: No Psychological Hx Reported Smoking Status: Never smoker Past Alcohol Use History: None Reported Past Drug Use History: None Reported - Past Family History Mother History Unknown: Yes General Exam - General Exam Comments Initial Comments: GENERAL: Patient is well-developed and well-nourished. Patient is nontoxic and well- hydrated and is in no acute distress. ENT: Neck is soft and supple. No significant lymphadenopathy is noted. Oropharynx is clear. Moist mucous membranes. Neck has full range of motion without eliciting any pain. There is no active bleeding from either nare EYES: The sclera were anicteric and conjunctiva were pink and moist. Extraocular movements were intact and pupils were equal round and reactive to light. Eyelids were unremarkable. SKIN: Skin is clear with no lesions or rashes and otherwise unremarkable. MUSCULOSKELETAL: Normal extremities with adequate strength and full range of motion. No lower extremity swelling or edema. No calf tenderness. LYMPHATICS: No significant lymphadenopathy is noted PSYCHIATRIC: Normal psychiatric evaluation. Course Vital Signs 04/20/23 13:05 Temperature 98.1 F Pulse Rate 70 Respiratory 18 Rate Blood Pressure 145/76 O2 Sat by Pulse 100 Oximetry Medical Decision Making - Medical Decision Making Was pt. sent in by a medical professional or institution (, PA, PEER TUTOR, urgent care, hospital, or correction...) When possible be specific @ -No Did you speak to anyone other than the patient for history (EMS, parent, family, police, friend...)? What history was obtained from this source @ -No Did you review nursing and triage notes (agree or disagree)? Why? @ -I reviewed and agree with nursing and triage notes Were old charts reviewed (outside hosp., previous admission, EMS record, old EKG, old radiological studies, urgent care reports/EKG's, correction records)? Report findings @ -No old charts were reviewed Differential Diagnosis (chest pain, altered mental status, abdominal pain women, abdominal pain men, vaginal bleeding, weakness, fever, dyspnea, syncope, headache, dizziness, GI bleed, back pain, seizure, CVA, palpatations, mental health, musculoskeletal)? @ -not applicable EKG interpreted by me (3pts min.). @ -As above X-rays interpreted by me (1pt min.). @ -None done CT interpreted by me (1pt min.). @ -None done U/S interpreted by me (1pt. min.). @ -None done What testing was considered but not performed or refused? (CT, X-rays, U/S, labs)? Why? @ -None What meds were considered but not given or refused? Why? @ -None Did you discuss the management of the patient with other professionals (professionals i.e. , PA, PEER TUTOR, lab, RT, psych nurse, social worker aide, yield analyst, teacher, traffic control officer, outsole caser)? Give summary @ -No Was smoking cessation discussed for >3mins.? @ -No Was critical care preformed (if so, how long)? @ -No Were there social determinants of health that impacted care today? How? (Homelessness, low income, unemployed, alcoholism, drug addiction, transportation, low edu. Level, literacy, decrease access to med. care, usp, rehab)? @ -No Was there de-escalation of care discussed even if they declined (Discuss DNR or withdrawal of care, Hospice)? DNR status @ -No What co-morbidities impacted this encounter? (DM, HTN, Smoking, COPD, CAD, Cancer, CVA, ARF, Chemo, Hep., AIDS, mental health diagnosis, sleep apnea, morbid obesity)? @ -None Was patient admitted / discharged? Hospital course, mention meds given and route, prescriptions, significant lab abnormalities, going to OR and other pertinent info. @ -Patient blood pressure systolic was 145. Patient was having no active bleeding had no ectopy throughout the ED course the patient will be given some Afrin spray any nose clamp and instructed how and when to use. Undiagnosed new problem with uncertain prognosis? @ -No Drug Therapy requiring intensive monitoring for toxicity (Heparin, Nitro, Insulin, Cardizem)? @ -No Were any procedures done? @ -No Diagnosis/symptom? @ -Epistaxis Acute, or Chronic, or Acute on Chronic? @ -Acute Uncomplicated (without systemic symptoms) or Complicated (systemic symptoms)? @ -Uncomplicated Side effects of treatment? @ -No Exacerbation, Progression, or Severe Exacerbation? @ -No Poses a threat to life or bodily function? How? (Chest pain, [place], [place], pneumonia, PE, COPD, DKA, ARF, appy, cholecystitis, CVA, Diverticulitis, Homicidal, Suicidal, threat to staff... and all critical care pts) @ -No Disposition Clinical Impression: Epistaxis Disposition: HOME SELF-CARE Instructions (If sedation given, give patient instructions): Nosebleed (ED) Additional Instructions: If patient has a another nosebleed he has to blow his nose to remove all the clots from his nose. Patient then is to take 2 sprays of Afrin spray sprayed in the side that is bleeding and then he is to place the clamp on his nose for 20 minutes he is to repeat this if he continues to bleed after 20 minutes and if it bleeds after that the patient's come back to the emergency department Is patient prescribed a controlled substance at d/c from ED?: No Referrals: Mango Cook DO [Primary Care Provider] - 1-2 days Time of Disposition: 13:56
[2023-04-20 15:37] VITALS: BP 143/77; PULSE 65; TEMP 97.4
== END 2023-04-20 15:48 | disposition home or self-care (01) ==
LOC: EC 13:04
DX: R04.0 Epistaxis (principal); E11.9 Type 2 diabetes mellitus without complications; E78.5 Hyperlipidemia, unspecified; I11.0 Hypertensive heart disease with heart failure; I25.2 Old myocardial infarction; J44.9 Chronic obstructive pulmonary disease, unspecified; M19.90 Unspecified osteoarthritis, unspecified site; Z79.02 Long term (current) use of antithrombotics/antiplatelets; Z79.4 Long term (current) use of insulin; Z79.82 Long term (current) use of aspirin; Z79.899 Other long term (current) drug therapy; Z86.16 Personal history of COVID-19
CPT/HCPCS: 99284

== ENCOUNTER → 2023-09-23 | Outpatient (CLI) | payer OTHER ==
[~2023-09-23] MED LIST: SODIUM CHLORIDE 0.45% 500 ML IV NR; SODIUM CHLORIDE 0.9% 1,000 ML IV NR; SODIUM CHLORIDE 0.9% 500 ML 500 ML in EMPTY BAG 1 BAG IV PRN
[2023-09-23 11:54] VITALS: BP 144/73; PULSE 76; RESP 16; TEMP 97.6
[2023-09-23 13:54] LABS: African American GFR (CKD) 22 (>60 ml/min/1.73 sqM); Blood Urea Nitrogen 45 mg/dL (9-20); Non-African American GFR(CKD) 19 (>60 ml/min/1.73 sqM)
== END ==
LOC: PROCWHC3 11:13
PROVIDERS: ATTEND Surgery
DX: I71.40 Abdominal aortic aneurysm, without rupture, unspecified (principal); E11.9 Type 2 diabetes mellitus without complications
CPT/HCPCS: 36415; 82565; 84520; 96360; 96361

== ENCOUNTER 2025-04-25 08:16 | Day surgery (SDC) | payer OTHER ==
[2025-04-24 10:18] VITALS: BMI 21.1
[2025-04-25] MEDS: IV FLUID CONTINUATION 1,000 ML IV ONE (08:32)
[2025-04-25 08:48] VITALS: TEMP 97
[2025-04-25 09:12] LABS: Glucose,Whole Blood 182 mg/dL (70-110)
[2025-04-25] MEDS: MIDAZOLAM 2 MG/2 ML VIAL IV ONE (09:33)
[2025-04-25] MEDS: DEXAMETHASONE SOD PHOSPHATE 4 MG/ML 1 ML VIAL IVP STA (09:48)
[2025-04-25] MEDS: ONDANSETRON 4 MG/2 ML VIAL IVP STA (09:49)
[2025-04-25] MEDS ORDERED: PROPOFOL 10 MG/ML 20 ML VIAL IV ONE (10:01)
[2025-04-25] MEDS ORDERED: fentaNYL (PF) 50 MCG/ML 2 ML AMP ONE (10:01)
[2025-04-25] MEDS ORDERED: HEPARIN SODIUM,PORCINE 5,000 UNIT/ML 1 ML VIAL ONE (10:01)
[2025-04-25] MEDS ORDERED: DEXAMETHASONE SOD PHOSPHATE 4 MG/ML 1 ML VIAL ONE (10:01)
[2025-04-25] MEDS ORDERED: ROPIVACAINE 5 MG/ML 30 ML VIAL ONE (10:01)
[2025-04-25] MEDS: LIDOCAINE 1% INJ 10MG/ML (20 ML MDV) SQ ONE (10:41)
[2025-04-25] MEDS: BUPIVACAINE (PF) 0.5% 30 ML VIAL SQ ONE (10:43)
[2025-04-25] MEDS: THROMBIN (BOVINE) 5,000 UNIT VIAL TOPICAL ONE (11:24)
[2025-04-25] MEDS: SODIUM CHLORIDE 0.9% 250 ML IV ONE (12:03)
--- NOTE | 2025-04-25 12:22 | P.OP ---
Date of Procedure: 04/25/25 Description of Procedure: Preoperative diagnosis: end-stage renal disease on dialysis. Tunneled catheter Postoperative diagnosis: Same Procedure: Left upper extremity loop forearm graft Surgeon: Trinity Torres D.O. Anesthesia: Regional block with sedation EBL: 15 mL IV fluids: See operative records Urine output: Not measured Drains: None Complications: None immediately apparent Condition: Stable to PACU Operative indication and findings: Patient is a 79-year-old male with end-stage renal disease was recently initiated on dialysis via chest wall tunneled catheter. After ultrasound evaluation was Small veins therefore the decision was made to go with a loop forearm graft. Risks and benefits were discussed. The patient was seen and understood and was willing to proceed. Procedure in detail: The patient was taken to the operative suite and placed in supine position. The upper extremity is prepped and draped in usual sterile fashion. A preprocedure timeout was performed, all parties were in agreement. A transverse incision was made just distal to the antecubital fossa and carried down to the level of the brachial artery. It was dissected free circumferentially and proximal and distal Vesseloops were placed. Attention was then turned towards the venous outflow. The most appropriate sized appearing vein was the cephalic vein and branches therefore it was dissected free and encircled proximally and distally. The 4 x 7 propatent graft was then tunneled through a counter incision in the forearm and a subcutaneous tissues. The patient was then heparinized. Flow was occluded through the artery. An arteriotomy was performed and anastomosis to the graft was performed with 6-0 Prolene. The graft was then flushed and the anastomosis was tied. Flow was resumed through the artery. Attention was then turned towards the venous anastomosis. Flow was occluded through the vein and a venotomy was performed. Anastomosis created with 6-0 Prolene. Prior to completion of the anastomosis the graft was flushed as well as the veins themselves. Fow was reinstituted. There remained a palpable pulse proximal and distal to the arterial anastomosis as well as a palpable pulse in the wrist. Thrombin Gelfoam was used for hemostasis. The incision sites were copiously irrigated the subcutaneous tissues were approximately with 3-0 Vicryl in interrupted fashion and the skin was reapproximated with running 4-0 Monocryl. Skin glue was placed. The patient was allowed awaken from anesthesia and transferred to PACU in stable condition having tolerated the procedure well.] Plan - Discharge Summary Discharge Rx Participant: No New Discharge Prescriptions: No Action Aspirin 81 mg PO DAILY Cyclobenzaprine [Flexeril] 5 mg PO Q12H PRN PRN Reason: Pain Albuterol Inhaler [Ventolin Hfa Inhaler] 1 - 2 puff INHALATION Q6H PRN PRN Reason: Wheezing Gabapentin [Neurontin] 100 mg PO HS PRN PRN Reason: Dialysis days guaiFENesin [Mucinex] 600 mg PO BID PRN PRN Reason: Cough polyethylene glycoL 3350 [Miralax] 17 gm PO DAILY Nasal Moisturizing Aerosol Sp. 1 spray NASAL TID Menthol Drops 6.5mg Lozenges 6.5 mg PO Q6H PRN PRN Reason: Cough/Sore Throat Calcium Acetate 667 mg PO W/BRKFST Budesonide/Glycopyr/Formoterol [Breztri Aerosphere Inhaler] 1 puff INHALATION BID Ergocalciferol [Vitamin D2 (1250 Mcg = 91653 Iu)] 1,250 mcg PO WE hydrOXYzine HCL [Hydroxyzine HCl] 25 mg PO BID PRN PRN Reason: Itching Atorvastatin [Lipitor] 40 mg PO HS lisinopriL [Zestril] 5 mg PO DAILY Metoprolol Tartrate [Lopressor] 25 mg PO BID Insulin Lispro [Insulin Lispro Kwikpen U-100] 3 unit SQ ONCE Torsemide [Demadex] 20 mg PO QAM Discharge Medication List Aspirin 81 mg PO DAILY 05/15/14 [History] Albuterol Inhaler [Ventolin Hfa Inhaler] 1 - 2 puff INHALATION Q6H PRN 04/24/25 [History] Atorvastatin [Lipitor] 40 mg PO HS 04/24/25 [History] Budesonide/Glycopyr/Formoterol [Breztri Aerosphere Inhaler] 1 puff INHALATION BID 04/24/25 [History] Calcium Acetate 667 mg PO W/BRKFST 04/24/25 [History] Cyclobenzaprine [Flexeril] 5 mg PO Q12H PRN 04/24/25 [History] Ergocalciferol [Vitamin D2 (1250 Mcg = 03289 Iu)] 1,250 mcg PO WE 04/24/25 [History] Gabapentin [Neurontin] 100 mg PO HS PRN 04/24/25 [History] Insulin Lispro [Insulin Lispro Kwikpen U-100] 3 unit SQ ONCE 04/24/25 [History] Menthol Drops 6.5mg Lozenges 6.5 mg PO Q6H PRN 04/24/25 [History] Metoprolol Tartrate [Lopressor] 25 mg PO BID 04/24/25 [History] Nasal Moisturizing Aerosol Sp. 1 spray NASAL TID 04/24/25 [History] Torsemide [Demadex] 20 mg PO QAM 04/24/25 [History] guaiFENesin [Mucinex] 600 mg PO BID PRN 04/24/25 [History] hydrOXYzine HCL [Hydroxyzine HCl] 25 mg PO BID PRN 04/24/25 [History] lisinopriL [Zestril] 5 mg PO DAILY 04/24/25 [History] polyethylene glycoL 3350 [Miralax] 17 gm PO DAILY 04/24/25 [History] Follow up Appointment(s)/Referral(s): Will Garcia DO [Doctor of Osteopathic Medicine] - 2 Weeks Activity/Diet/Wound Care/Special Instructions: Resume previous diet. Resume previous bathing. Leave wrap in place on arm for 48 hours, may remove following. Glue will fall off on its own in time and sutures underneath the skin. Utilize sling for first 24 hours after block. Resume previous activity as tolerated Discharge Disposition: HOME SELF-CARE
--- NOTE | 2025-04-25 13:06 | P.ANPRN ---
Procedure Note - Anesthesia - Nerve Block Performed Left Supraclavicular Single Time Out Performed: Yes ([id number]) Date of Procedure: 04/25/25 Procedure Start Time: : Procedure Stop Time: :38 Location of Patient: PreOp Indication: Acute Post-Operative Pain, Requested by Surgeon Sedation Type: Sedate with meaningful contact maintained Preparation: Sterile Prep Position: Sitting Catheter: None Needle Types: Pajunk Needle Gauge: 21 Ultrasound used to visualize needle placement: Yes Ultrasound used to observe medication spread: Yes Injectate: 0.5% Ropivacaine (see comment for volume) (21 mL of block solution containing 20 mL of 0.5% ropivacaine mixed with 4 mg of dexamethasone) Blood Aspirated: No Pain Paresthesia on Injection Noted: No Resistance on Injection: Normal Image Stored and Saved: Yes Events: Uneventful and Well Tolerated
[2025-04-25 13:12] VITALS: BP 136/81; PULSE 71; RESP 17
== END 2025-04-25 13:21 | disposition home or self-care (01) ==
LOC: OR 08:16
PROVIDERS: ATTEND Surgery
DX: E11.22 Type 2 diabetes mellitus with diabetic chronic kidney disease (principal); I13.2 Hypertensive heart and chronic kidney disease with heart failure and with stage 5 chronic kidney disease, or end stage renal disease; I50.9 Heart failure, unspecified; N18.6 End stage renal disease; Z99.2 Dependence on renal dialysis; G89.18 Other acute postprocedural pain; I42.9 Cardiomyopathy, unspecified; E78.5 Hyperlipidemia, unspecified; J44.9 Chronic obstructive pulmonary disease, unspecified; I71.40 Abdominal aortic aneurysm, without rupture, unspecified; B19.20 Unspecified viral hepatitis C without hepatic coma; E11.39 Type 2 diabetes mellitus with other diabetic ophthalmic complication; H40.9 Unspecified glaucoma; H42 Glaucoma in diseases classified elsewhere; K21.9 Gastro-esophageal reflux disease without esophagitis; K74.60 Unspecified cirrhosis of liver; R55 Syncope and collapse; Z79.82 Long term (current) use of aspirin; Z79.4 Long term (current) use of insulin; Z79.51 Long term (current) use of inhaled steroids; Z79.899 Other long term (current) drug therapy; Z87.891 Personal history of nicotine dependence; Z95.810 Presence of automatic (implantable) cardiac defibrillator; Z85.46 Personal history of malignant neoplasm of prostate
CPT/HCPCS: 36830; 64415; 84132; J2250; J1644; J1100; J0690; J2405; J2003; J3010; J2795; J2704; J0665

== ENCOUNTER → 2025-05-09 | Outpatient (CLI) | payer OTHER ==
--- NOTE | 2025-05-09 14:03 | US ---
EXAMINATION TYPE: US arterial LE single level DATE OF EXAM: 05/09/2025 1:51 PM COMPARISONS: 2020. CLINICAL INDICATION: Male, 79 years old with history of I70.2 ARTERIAL FLOW; reassess flow to feet, c old, painful feet ongoing for years TECHNIQUE: Systolic pressures were taken of the upper and lower extremity arteries with ankle-brachia l indices and toe brachial indices calculated bilaterally. History of: Smoker: previous Hypertension: y Diabetic: y Hyperlipidemia: y TIA/CVA: n Previous Vascular Surgery: defibrillator CAD: y SD: y Vascular Ulcers: n Claudication: n Gangrene: n FINDINGS: Doppler Waveforms: Right: Monophasic Left: Monophasic Brachial Artery systolic pressure: Right: 162 Left: deferred per patient Posterior Tibial artery systolic pressure: Right: 44 Left: 53 Dorsalis Pedis artery systolic pressure: Right: 44 Left: 51 Ankle-Brachial Indices: Right: 0.2 Left: 0.3 IMPRESSION: STEPHANIE: Right: Severe Arterial Disease <0.5, Recommendation: Refer to vascular specialist Left: Severe Arterial Disease <0.5, Recommendation: Refer to vascular specialist [facility], , 05/09/2025 2:01 PM
== END | disposition home or self-care (01) ==
LOC: RADUSWWP 13:32
PROVIDERS: ATTEND Internal Medicine Hospice and Palliative Medicine
DX: I70.203 Unspecified atherosclerosis of native arteries of extremities, bilateral legs (principal)
CPT/HCPCS: 93922